=== PATIENT | male | born 1945 | race African-American/Black ===

== ENCOUNTER 2016-09-08 18:30 | Inpatient (IN) | payer MEDICARE ==
[~2016-09-08] VITALS: Ht 182.9 cm; Wt 74.8 kg
[~2016-09-08 18:30] MED LIST: ACETAMINOPHEN325 M1 ORAL; BACTRIM DS TAB1 EAC1 ORAL; BENADRYL25 MG ORAL; CIPROFLOXACIN500 M2 ORAL; FERROUS SULFAT325 M2 ORAL; LEVOFLOXACIN500 MG ORAL; MIRALAX17 G2 ORAL; MYLANTA II30 ML ORAL; NKM; NORCO 5-325 TA1 EACH ORAL; NORCO1 E1 ORAL; PERI-COLACE1 EA ORAL; PERMETHRIN60 GM TOPIC; PROTONIX40 MG ORAL; RESTORIL15 MG ORAL; SPIRONOLACTONE50 MG ORAL; TYLENOL650 MG/20. ORAL; ZOFRAN4 M3 ORAL
[2016-09-08 20:19] VITALS: BP 156/91
[2016-09-08] MEDS ORDERED: Miralax 17gm pkt ORAL PRN (21:30)
[2016-09-08] MEDS: Norco 7.5mg/325mg tab ORAL PRN (21:47)
[2016-09-08] MEDS: Heparin 5000 units/ml inj SUBQ SCH (21:53)
[2016-09-09 00:46] VITALS: BP 137/90
[2016-09-09 03:44] VITALS: BP 114/72
[2016-09-09] MEDS: Norco 7.5mg/325mg tab ORAL PRN ×3 (05:39→19:19)
[2016-09-09] MEDS: Heparin 5000 units/ml inj SUBQ SCH ×3 (05:40→21:50)
[2016-09-09 06:21] LABS: INR 1.1 (0.9-1.1); PROTHROMBIN TIME 11.5 SEC (9.30-11.50)
[2016-09-09 06:38] LABS: BASOPHILS % (AUTO) 1.5 % (0.0-2.0); EOSINOPHILS % (AUTO) 3.3 % (0.0-3.0); LYMPHOCYTES % (AUTO) 31.6 % (20.0-45.0); MEAN CORPUSCULAR HEMOGLOBIN 23.1 PG (27.0-31.0); MEAN CORPUSCULAR HGB CONC 30.8 G/DL (32.0-36.0); MEAN CORPUSCULAR VOLUME 75 FL (80-99); MEAN PLATELET VOLUME 7.9 FL (6.5-10.1); MONOCYTES % (AUTO) 12.9 % (1.0-10.0); NEUTROPHILS % (AUTO) 50.7 % (45.0-75.0); PLATELET COUNT 208 K/UL (150-450); RED BLOOD COUNT 3.96 M/UL (4.70-6.10); RED CELL DISTRIBUTION WIDTH 19.1 % (11.6-14.8)
[2016-09-09 06:58] LABS: ALANINE AMINOTRANSFERASE 19 U/L (3-41); ALBUMIN/GLOBULIN RATIO 0.6 (1.0-2.7); ANION GAP 15 (5-15); ASPARTATE AMINO TRANSFERASE 72 U/L (5-40); CALCIUM 8.9 mg/dL (8.6-10.2); CARBON DIOXIDE 22 mEQ/L (20-30); CHLORIDE 100 mEQ/L (98-107); CREATININE 1.2 mg/dL (0.7-1.2); GLOMERULAR FILTRATION RATE > 60 mL/min (>60); HEMOLYSIS 0; MAGNESIUM 1.5 mg/dL (1.7-2.5); PHOSPHORUS 3.4 mg/dL (2.5-4.8); POTASSIUM 4.3 mEQ/L (3.4-4.9); SODIUM 137 mEQ/L (135-145); TOTAL PROTEIN 8.2 g/dL (6.6-8.7)
[2016-09-09 08:28] VITALS: BP 123/76
--- NOTE | 2016-09-09 11:19 | Wound Care Consultation ---
Wound Assessment Wound Assessment #1: Wound Number: #1 Wound Present on Admission: Yes New Wound: No Status Change of Wound: No Wound Location Body Site Modif: mid Wound Location Body Site: abdomen Wound Type: other - non healing open wound. Aniket Test: Does not Aniket Wound Thickness: Full Thickness Wound Length: 7.0 Wound Width: 5.0 Wound Depth: 0.3 Percent of Wound [place]/Red: 100 Wound Drainage Amount: Moderate Wound Drainage Odor: None/Absent Tissue Surrounding Wound: Macerated Wound General Appearance: Reddened Wound Assessment #2: Wound Number: #2 Wound Present on Admission: Yes New Wound: No Status Change of Wound: No Wound Location Body Site Modif: right Wound Location Body Site: toe - 2nd Wound Type: scab Aniket Test: Does not Aniket Wound Thickness: Full Thickness Wound Length: 0.5 Wound Width: 0.5 Wound Depth: utd Wound Drainage Amount: None Wound Drainage Odor: None/Absent Tissue Surrounding Wound: intact dry scab Wound General Appearance: Open to air, Clean/Dry Wound Comment #1 Mid abdomen non-healing open wound. #2 Right 2nd toe scab. Recommendation -Local wound care as ordered. -Follow previous treatment order for Abdominal site. -Turn and reposition. -Keep clean and dry. -Optimize nutrition. -Heel protectors if needed. -Offload heels and feet. -Assess and notify MD if any changes of condition is noted. upon assessment noted patient is alert able to reposition self. per patient stated abdomen was a hernia, had surgery, and one day it opened and has had wound since. site noted 100% pink wound bed, no foul odor, moderate serosanguineous drainage to site, applied treatment as ordered, tolerated well , no c/o pain at time of treatment being provided. left patient safe lowest position call light kept within reach. ASAD LAI Sep 09, 2016 11:19
[2016-09-09 12:16] VITALS: BP 128/75
[2016-09-09 16:00] VITALS: BP 136/82
--- NOTE | 2016-09-09 18:39 | History & Physical ---
History and Physical History & Physicial Dictated for Int Med-Dr Leigh no. [id number]. STEPHENIE OLSEN Sep 09, 2016 18:39
[2016-09-09 20:00] VITALS: BP 111/65
[2016-09-09 20:40] LABS: PSA TOTAL 2.2 ng/mL (< 4.5)
[2016-09-09] MEDS: Mylanta II UD 30ml ORAL PRN (20:43)
--- NOTE | 2016-09-09 23:28 | History and Physical Report ---
DATE OF ADMISSION: 09/08/2016 CHIEF COMPLAINT: The patient is a 71-year-old male, who presents with chief complaint of abdominal pain. HISTORY OF PRESENT ILLNESS: The patient has a history of ventral hernia. The patient states that the hernia has been increasing in size. The patient complains of pain in the ventral hernia region. The patient states that the pain now radiates to his left side. The patient presented to [facility] emergency room. A CT scan of the abdomen revealed multiple liver masses. The patient was transferred to [facility] for insurance purposes. The patient is admitted for abdominal pain to rule out metastatic cancer. PAST MEDICAL HISTORY: The patient denies. PAST SURGICAL HISTORY: The patient denies. CURRENT MEDICATIONS: The patient denies. ALLERGIES: Penicillin. SOCIAL HISTORY: The patient is single and is retired. The patient admits to tobacco use one-half pack per day. The patient admits to alcohol use of 2 drinks daily. The patient denies drug abuse. REVIEW OF SYSTEMS: Constitutional: The patient denies weight loss or weight gain. The patient denies fevers or chills. HEENT: The patient denies ear or throat pain. The patient denies headache. Cardiovascular: The patient denies palpitations or chest pain. Chest: The patient denies wheeze or shortness of breath. Abdomen: The patient complains of abdominal pain as above. The patient denies nausea, vomiting, diarrhea, or constipation. Genitourinary: The patient denies dysuria or increased frequency of urination. Neuromuscular: The patient denies seizure or generalized weakness. PHYSICAL EXAMINATION: VITAL SIGNS: Temperature 97.4 degrees, respirations 20, pulse 76, and blood pressure 137/90. GENERAL: The patient is a thin-appearing, male, disheveled, in no apparent distress. HEENT: Eyes, pupils are equal and responsive to light and accommodation. Extraocular movements are intact. NECK: Supple without lymphadenopathy. CHEST: Lungs are clear to auscultation bilaterally without wheezes or rales. CARDIOVASCULAR: Regular rhythm and rate. S1 and S2 are normal without murmurs, rubs, or gallops. ABDOMEN: Soft and distended with presence of a very large ventral hernia. There is pain to palpation in all four quadrants. There is no rebound or guarding. EXTREMITIES: Negative for clubbing, cyanosis, or edema. RECTAL: Refused. GENITALIA: Refused. NEUROLOGIC: Cranial nerves II through XII were grossly intact without focal deficits. Motor strength is 5/5 bilaterally. Deep tendon reflexes are 2+ plantar. LABORATORY AND DIAGNOSTIC STUDIES: WBC 5.8, hemoglobin 9.9, hematocrit 31.6, and platelets 226,000. Sodium 136, potassium 4.8, chloride 106, CO2 22, BUN 23, creatinine 1.22, and glucose 84. Liver function tests were elevated with an AST of 96, ALT of 28, and alkaline phosphatase of 147. Direct bilirubin is 0.4. Lipase is elevated at 87. CT scan of the abdomen from [place] revealed multiple liver masses. ASSESSMENT: This is a 71-year-old male. 1. Abdominal pain. 2. Large ventral hernia. 3. Liver masses. TREATMENT: 1. Abdominal pain. This may be secondary to ventral hernia as above versus liver masses. A Gastroenterology consultation was obtained with Dr. Arie Morrell. An Oncology consultation was obtained with Dr. Kwon. 2. Ventral hernia. This may be secondary to liver masses as above. 3. Abdominal pain. This is secondary to liver masses. Anmol Colindres M.D. DR: IGOR JOB#: [id number] CC:
--- NOTE | 2016-09-10 03:58 | Consultation ---
DATE OF CONSULTATION: 09/09/2016 HEMATOLOGY/ONCOLOGY CONSULTATION CONSULTING PHYSICIAN: Miguel Kwon M.D. ATTENDING PHYSICIAN: Anmol Colindres M.D. ADMITTING PHYSICIAN: 1. Anmol Colindres M.D. 2. Lennox Leigh M.D. CHIEF COMPLAINT AND HISTORY OF PRESENT ILLNESS: Dear Dr. Colindres and Dr. Leigh, Today, I had an opportunity to see one of your patients, Mr. Leno Mcleod, as you are aware, 71-year-old delightful gentleman with past medical history of alcohol abuse, perforated gastric ulcer, hyponatremia, metabolic acidosis, history of peritonitis, perforated duodenal ulcer, history of hepatitis C, abdominal pain, and GI bleed. The patient was admitted to [facility]. During evaluation, it was found that the patient did have a lesion in the left lobe of the liver suspicious for malignant neoplasm. CT scan was compared with previous one from March 2016. Liver lesion showing incredible growth suspicious for malignant neoplasm. PAST MEDICAL HISTORY: 1. History of alcohol abuse. 2. History of perforated gastric ulcer. 3. History of peritonitis. 4. Anemia of chronic disease. 5. Hypocalcemia. 6. Hyponatremia. 7. History of gout. 8. History of ethanol abuse. 9. History of hepatitis C. MEDICATIONS: 1. Heparin subcutaneous. 2. Tylenol. 3. Zofran. 4. MiraLax. 5. Restoril. ALLERGIES: NKDA. FAMILY HISTORY: Noncontributory. SOCIAL HISTORY: History of smoking. History of alcohol abuse. REVIEW OF SYSTEMS: General: The patient is not in any significant distress, but was chronically ill. Respiratory: Mild shortness of breath. Cardiovascular: The patient denies any chest pain. Gastrointestinal: History of perforated ulcer. History of alcohol abuse. History of diverticulitis. History of ventral hernia. History of GI bleed. PHYSICAL EXAMINATION: VITAL SIGNS: T-max 97 degrees, respiratory rate 20, heart rate 80, and blood pressure 130/80. HEENT: Head, normocephalic and atraumatic. NECK: Supple. No thyroid enlargement noted. No lymphadenopathy. HEART: S1 and S2 regular. ABDOMEN: Soft and benign. No organomegaly present. Bowel sounds are present. EXTREMITIES: No cyanosis, clubbing, or edema. LABORATORY AND DIAGNOSTIC DATA: Hemoglobin 9.1, hematocrit 29.7, and platelet count 208,000. INR is 1.1. Chemistry, CEA is 5.7, CA 19-9 is 0.6, and creatinine is 1.2. CT scan of the abdomen shows mass in the liver. Abdominal ultrasound shows mass in the liver. IMPRESSION: 1. Liver mass, rule out primary liver malignancy as well as metastatic lesion. 2. Anemia of chronic disease. 3. Anemia of iron deficiency. 4. Decreased hemoglobin and hematocrit, rule out gastrointestinal bleed. 5. Increased CEA, rule out colon cancer. 6. History of alcohol abuse. 7. History of perforated peptic ulcer. 8. History of peritonitis. 9. Hiatal hernia. 10. Possible alcoholic liver cirrhosis. 11. Possible hepatic failure carcinoma. 12. Malnutrition. 13. Failure to thrive. RECOMMENDATIONS: 1. Watch count. 2. Watch coagulopathy. 3. Venous Doppler of bilateral lower extremities to rule out DVT. 4. GI evaluation. 5. Possible liver mass biopsy. 6. Recheck tumor markers including alpha-fetoprotein, PSA, and nutrition. 7. Close followup. 8. Iron IV. 9. PRBC transfusion on p.r.n. basis. Miguel Kwon MD DR: GALDINO JOB#: [id number] CC:
[2016-09-10 04:00] VITALS: BP 117/75
[2016-09-10] MEDS: Heparin 5000 units/ml inj SUBQ SCH ×3 (06:08→21:24)
[2016-09-10 06:31] LABS: BASOPHILS % (AUTO) 1.2 % (0.0-2.0); LYMPHOCYTES % (AUTO) 33.6 % (20.0-45.0); MEAN CORPUSCULAR HEMOGLOBIN 22.5 PG (27.0-31.0); MEAN CORPUSCULAR HGB CONC 29.9 G/DL (32.0-36.0); MEAN CORPUSCULAR VOLUME 75 FL (80-99); MEAN PLATELET VOLUME 7.6 FL (6.5-10.1); MONOCYTES % (AUTO) 11.6 % (1.0-10.0); NEUTROPHILS % (AUTO) 50.6 % (45.0-75.0); PLATELET COUNT 212 K/UL (150-450); RED BLOOD COUNT 4.16 M/UL (4.70-6.10); WHITE BLOOD COUNT 7.4 K/UL (4.8-10.8)
[2016-09-10 07:52] LABS: ALANINE AMINOTRANSFERASE 18 U/L (3-41); ALBUMIN/GLOBULIN RATIO 0.6 (1.0-2.7); ANION GAP 15 (5-15); ASPARTATE AMINO TRANSFERASE 74 U/L (5-40); CALCIUM 8.7 mg/dL (8.6-10.2); CARBON DIOXIDE 23 mEQ/L (20-30); CHLORIDE 98 mEQ/L (98-107); CREATININE 1.1 mg/dL (0.7-1.2); GLOMERULAR FILTRATION RATE > 60 mL/min (>60); HEMOLYSIS 1; POTASSIUM 4.4 mEQ/L (3.4-4.9); SODIUM 136 mEQ/L (135-145); TOTAL PROTEIN 7.6 g/dL (6.6-8.7)
[2016-09-10 08:15] VITALS: BP 110/65
[2016-09-10] MEDS: Rifaximin 550mg tab ORAL SCH ×2 (08:51→21:23)
[2016-09-10] MEDS ORDERED: NS 275ml ONE (09:39)
[2016-09-10] MEDS ORDERED: Tubing IV Secondary IV ONE (09:39)
[2016-09-10 12:15] VITALS: BP 121/75
[2016-09-10] MEDS: Mylanta II UD 30ml ORAL PRN ×2 (13:08→21:53)
[2016-09-10] MEDS: Norco 7.5mg/325mg tab ORAL PRN ×2 (13:08→19:07)
--- NOTE | 2016-09-10 13:56 | General Progress Note ---
Assessment/Plan Assessment/Plan IMPRESSION: 1. Liver mass, rule out primary liver malignancy as well as metastatic lesion. 2. Anemia of chronic disease. 3. Anemia of iron deficiency. 4. Decreased hemoglobin and hematocrit, rule out gastrointestinal bleed. 5. Increased CEA, rule out colon cancer. 6. History of alcohol abuse. 7. History of perforated peptic ulcer. 8. History of peritonitis. 9. Hiatal hernia. 10. Possible alcoholic liver cirrhosis. 11. Possible hepatic failure carcinoma. 12. Malnutrition. 13. Failure to thrive. RECOMMENDATIONS: 1. Watch count.PRBC transfusion on p.r.n. basis. 2. Watch coagulopathy. 3. Venous Doppler of bilateral lower extremities to rule out DVT. 4. GI evaluation. 5. Possible liver mass biopsy. 6. Tumor markers pending 7. Close followup. 8. Continue Iron IV. 9. Staff Thank you, Deepak Kwon MD Subjective Constitutional: Reports: no symptoms HEENT: Reports: no symptoms Cardiovascular: Reports: no symptoms Respiratory: Reports: no symptoms Gastrointestinal/Abdominal: Reports: poor appetite Genitourinary: Reports: no symptoms Neurologic/Psychiatric: Reports: no symptoms Endocrine: Reports: no symptoms Hematologic/Lymphatic: Reports: anemia Allergies: Coded Allergies: PENICILLINS (Unverified Allergy, Severe, Rash, 05/01/14) Subjective no complaints, is stable, started on iron Objective Last 24 Hour Vital Signs Date Time Temp Pulse Resp B/P Pulse Ox O2 Delivery O2 Flow Rate FiO2 09/10/16 12:15 97.7 79 21 121/75 97 Room Air 09/10/16 08:15 97.7 83 20 110/65 97 Room Air 09/10/16 04:00 98.1 68 20 117/75 92 Room Air 09/09/16 20:00 98.2 73 20 111/65 96 Room Air 09/09/16 16:00 97.3 73 18 136/82 96 Room Air 09/09/16 14:11 98.2 Intake and Output 09/09/16 09/10/16 19:00 07:00 Intake Total 460 ml 55 ml Output Total 600 ml Balance -140 ml 55 ml Intake Oral 460 ml IV Total 55 ml Output Urine Total 600 ml # Voids 5 # Bowel Movements 1 Laboratory Tests 09/09/16 20:15: Hemoglobin A [Pending], Hemoglobin A2 [Pending], Hemoglobin C [Pending], Hemoglobin F () [Pending], Hemoglobin S [Pending], Variant Hemoglobin [ Pending], Hemoglobin Electrophoresis Interp [Pending], Hemoglobin Interpretation [Pending], Hemoglobin Solubility [Pending], Ammonia 65H, Alpha Fetoprotein [Pending], Hepatitis A IgM Antibody [Pending], Hepatitis B Surface Antigen [Pending], Hepatitis B Core IgM Antibody [Pending], Hepatitis C Antibody [Pending] 09/10/16 05:00: White Blood Count 7.4, Red Blood Count 4.16L, Hemoglobin 9.3L, Hematocrit 31.3L , Mean Corpuscular Volume 75L, Mean Corpuscular Hemoglobin 22.5L, Mean Corpuscular Hemoglobin Concent 29.9L, Red Cell Distribution Width 20.0H, Platelet Count 212, Mean Platelet Volume 7.6, Neutrophils (%) (Auto) 50.6, Lymphocytes (%) (Auto) 33.6, Monocytes (%) (Auto) 11.6H, Eosinophils (%) (Auto) 3.0, Basophils (%) (Auto) 1.2, Sodium Level 136, Potassium Level 4.4, Chloride Level 98, Carbon Dioxide Level 23, Anion Gap 15, Blood Urea Nitrogen 21, Creatinine 1.1, Estimat Glomerular Filtration Rate > 60, Glucose Level 79, Calcium Level 8.7, Total Bilirubin 0.7, Aspartate Amino Transf (AST/SGOT) 74H, Alanine Aminotransferase (ALT/SGPT) 18, Alkaline Phosphatase 134H, Total Protein 7.6, Albumin 3.1L, Globulin 4.5, Albumin/Globulin Ratio 0.6L 09/10/16 09:00: Stool Occult Blood Negative Height (Feet): 6 Weight (Pounds): 165 General Appearance: WD/WN EENT: TMs normal Neck: supple Cardiovascular: regular rhythm Respiratory/Chest: lungs clear Abdomen: non tender Extremities: non-tender Edema: 1+ Leg (L), 1+ Leg (R) Edema: mild edema Neurologic: alert Skin: warm/dry Deepak Kwon Sep 10, 2016 13:56
[2016-09-10 16:04] VITALS: BP 122/60
--- NOTE | 2016-09-10 19:17 | Internal Med Progress Note ---
Subjective Date of Service: Sep 10, 2016 Physician Name Stephenie Olsen Attending Physician Lennox Leigh MD Current Medications Medications (Trade) Dose Ordered Sig/Gilles Route PRN Reason Start Time Stop Time Status Last Admin Dose Admin Acetaminophen (Tylenol) 650 mg Q4H PRN ORAL Mild Pain/Temp > 100.5 09/08/16 21:30 10/08/16 21:29 Acetaminophen/ Hydrocodone Bitart ([place] 7.5/325) 1 ea Q6H PRN ORAL Pain Scale (6-10) 09/08/16 21:30 09/15/16 21:29 09/10/16 19:07 Al Hydroxide/Mg Hydroxide ([place]yl[place] II) 30 ml Q6H PRN ORAL Indigestion 09/08/16 21:30 10/08/16 21:29 09/10/16 13:08 Dextrose (Dextrose 50%) STAT PRN IV Hypoglycemia 09/08/16 22:00 10/08/16 21:59 Diphenhydramine HCl (Benadryl) 25 mg Q6H PRN ORAL Itching 09/08/16 21:30 10/08/16 21:29 Heparin Sodium (Porcine) (Heparin 5000 units/ml) 5,000 units EVERY 8 HOURS SUBQ 09/08/16 22:00 10/08/16 21:59 09/10/16 13:12 Iron Sucrose/ Sodium Chloride (Venofer/Sodium Chloride) 55 ml @ 200 mls/hr BEDTIME IVPB 09/09/16 23:00 09/18/16 21:17 09/09/16 22:55 Ondansetron HCl (Zofran) 4 mg Q6H PRN ORAL Nausea & Vomiting 09/08/16 21:30 10/08/16 21:29 Polyethylene Glycol (Miralax) 17 gm HSPRN PRN ORAL Constipation 09/08/16 21:30 10/08/16 21:29 Rifaximin (Xifaxan) 550 mg EVERY 12 HOURS ORAL 09/10/16 09:00 09/17/16 08:59 09/10/16 08:51 Temazepam 15 mg 15 mg HSPRN PRN ORAL Insomnia 09/08/16 21:30 09/15/16 21:29 Allergies: Coded Allergies: PENICILLINS (Unverified Allergy, Severe, Rash, 05/01/14) ROS Limited/Unobtainable: No Constitutional: Reports: no symptoms HEENT: Reports: no symptoms Cardiovascular: Reports: no symptoms Respiratory: Reports: no symptoms Gastrointestinal/Abdominal: Reports: abdominal pain Genitourinary: Reports: no symptoms Neurologic/Psychiatric: Reports: no symptoms Subjective 71 YO M admitted for abdominal pain; now liver masses. Cover for Int Oliver-Dr Leigh. 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, no motor/sensory deficits Skin: normal pigmentation, warm/dry Laboratory Tests Test 09/09/16 20:15 09/10/16 05:00 09/10/16 09:00 Hemoglobin A Pending Hemoglobin A2 Pending Hemoglobin C Pending Hemoglobin F () Pending Hemoglobin S Pending Variant Hemoglobin Pending Hemoglobin Electrophoresis Interp Pending Hemoglobin Interpretation Pending Hemoglobin Solubility Pending Ammonia 65 umol/L (16-60) H Alpha Fetoprotein Pending Hepatitis A IgM Antibody Pending Hepatitis B Surface Antigen Pending Hepatitis B Core IgM Antibody Pending Hepatitis C Antibody Pending White Blood Count 7.4 K/UL (4.8-10.8) Red Blood Count 4.16 M/UL (4.70-6.10) L Hemoglobin 9.3 G/DL (14.2-18.0) L Hematocrit 31.3 % (42.0-52.0) L Mean Corpuscular Volume 75 FL (80-99) L Mean Corpuscular Hemoglobin 22.5 PG (27.0-31.0) L Mean Corpuscular Hemoglobin Concent 29.9 G/DL (32.0-36.0) L Red Cell Distribution Width 20.0 % (11.6-14.8) H Platelet Count 212 K/UL (150-450) Mean Platelet Volume 7.6 FL (6.5-10.1) Neutrophils (%) (Auto) 50.6 % (45.0-75.0) Lymphocytes (%) (Auto) 33.6 % (20.0-45.0) Monocytes (%) (Auto) 11.6 % (1.0-10.0) H Eosinophils (%) (Auto) 3.0 % (0.0-3.0) Basophils (%) (Auto) 1.2 % (0.0-2.0) Sodium Level 136 mEQ/L (135-145) Potassium Level 4.4 mEQ/L (3.4-4.9) Chloride Level 98 mEQ/L (98-107) Carbon Dioxide Level 23 mEQ/L (20-30) Anion Gap 15 (5-15) Blood Urea Nitrogen 21 mg/dL (7-23) Creatinine 1.1 mg/dL (0.7-1.2) Estimat Glomerular Filtration Rate > 60 mL/min (>60) Glucose Level 79 mg/dL (74-106) Calcium Level 8.7 mg/dL (8.6-10.2) Total Bilirubin 0.7 mg/dL (0.0-1.2) Aspartate Amino Transf (AST/SGOT) 74 U/L (5-40) H Alanine Aminotransferase (ALT/SGPT) 18 U/L (3-41) Alkaline Phosphatase 134 U/L (40-129) H Total Protein 7.6 g/dL (6.6-8.7) Albumin 3.1 g/dL (3.5-5.2) L Globulin 4.5 g/dL Albumin/Globulin Ratio 0.6 (1.0-2.7) L Stool Occult Blood Negative (NEGATIVE) Microbiology Date/Time Source Procedure Growth Status 09/09/16 02:45 Urine,Clean Catch Urine Culture - Preliminary Strep Species, Gamma-Hemolytic Resulted 09/08/16 22:45 Abdomen Gram Stain - Final Resulted 09/08/16 22:45 Wound Culture - Preliminary Staphylococcus Aureus Resulted Intake and Output 09/09/16 09/10/16 19:00 07:00 Intake Total 460 ml 55 ml Output Total 600 ml Balance -140 ml 55 ml Intake Oral 460 ml IV Total 55 ml Output Urine Total 600 ml # Voids 5 # Bowel Movements 1 Assessment/Plan Problem List: (1) Liver masses Assessment & Plan: Await MRI abdomen. See heme/onc note (2) Elevated liver enzymes Assessment & Plan: await GI consult. (3) Pancreatitis Assessment & Plan: Due to liver masses. Await GI consult. (4) Ventral hernia Status: not improved STEPHENIE OLSEN Sep 10, 2016 19:17
--- NOTE | 2016-09-10 19:48 | Consultation ---
DATE OF CONSULTATION: 09/10/2016 CHIEF COMPLAINT: Abdominal pain. HISTORY OF PRESENT ILLNESS: This is a 71-year-old male, who has history of large ventral hernia, which apparently was operated two years ago, still has open wound. He was here in April 2016, when he had an endoscopy by me. An endoscopy showed evidence of esophagitis and paraesophageal hernia. The patient also had prior history of gallstones, diverticulosis of colon, and came back again with abdominal pain. Of note in the last admission, there was a liver lesion which he was doing a workup on. Alpha-fetoprotein was 15. The patient never got follow up after discharge, which is April 2016. PAST MEDICAL HISTORY: 1. History of diverticulosis. 2. Esophagitis. 3. Hiatal hernia. 4. Liver lesions suspicious for malignancy. 5. A ventral hernia repair, which is still open. 6. History of duodenal ulcer requiring surgery. 7. Anemia. 8. History of alcohol abuse. PAST SURGICAL HISTORY: The patient had exploratory laparotomy in 2013 and also had a duodenal ulcer. MEDICATIONS: Please see medication reconciliation list. ALLERGIES: Penicillin. SOCIAL HISTORY: The patient is a both smoker and drinker before. No intravenous drug abuse. FAMILY HISTORY: Noncontributory. REVIEW OF SYSTEMS: A 10-point review of systems was performed and pertinent positives in history of present illness. PHYSICAL EXAMINATION: VITAL SIGNS: Temperature 98.1 degrees, pulse 60, respiratory rate 20, and blood pressure 116/74. HEENT: Normocephalic and atraumatic. Sclerae anicteric. NECK: Supple. No evidence of lymphadenopathy. CARDIOVASCULAR: Regular rate and rhythm. Plus S1 and S2. LUNGS: Decreased breath sounds bilaterally on supine exam. ABDOMEN: There is a large ventral hernia with the cover on the wound area. Bowel sounds are present. No rebound. No guarding. No peritoneal sign. EXTREMITIES: No cyanosis. No clubbing. No edema. LABORATORY DATA: White count , hemoglobin 9.3, hematocrit 31, and platelet count is 212,000. Chem-7 is grossly normal. Liver function tests, alkaline phosphatase 134, AST 74, and ALT of 18. Ammonia level was elevated at 65. ASSESSMENT AND PLAN: This is a [id number] with multiple medical problems including anemia, esophagitis, history of duodenal ulcerations, diverticulosis, questionable liver malignancy, and elevated ammonia level. PLAN: Start the patient on Xifaxan 550 b.i.d. for elevated ammonia level. The patient is going for MRI of abdomen, we will follow. The patient's hepatitis panel is pending. We are going to also order alpha-fetoprotein. The patient might need a biopsy of the liver lesion if there is not enough diagnosis. Arie Morrell M.D. DR: PEREZ JOB#: [id number] CC:
[2016-09-10 20:00] VITALS: BP 133/72
[2016-09-11] VITALS (7 sets, daily range): BP systolic 100–142; BP diastolic 67–86
[2016-09-11] MEDS: Heparin 5000 units/ml inj SUBQ SCH ×3 (06:00→21:14)
[2016-09-11 07:06] LABS: BASOPHILS % (AUTO) 1.5 % (0.0-2.0); EOSINOPHILS % (AUTO) 2.7 % (0.0-3.0); LYMPHOCYTES % (AUTO) 30.4 % (20.0-45.0); MEAN CORPUSCULAR HEMOGLOBIN 22.6 PG (27.0-31.0); MEAN CORPUSCULAR HGB CONC 30.3 G/DL (32.0-36.0); MEAN CORPUSCULAR VOLUME 75 FL (80-99); MEAN PLATELET VOLUME 8.1 FL (6.5-10.1); MONOCYTES % (AUTO) 16.7 % (1.0-10.0); NEUTROPHILS % (AUTO) 48.7 % (45.0-75.0); PLATELET COUNT 205 K/UL (150-450); RED BLOOD COUNT 4.17 M/UL (4.70-6.10); RED CELL DISTRIBUTION WIDTH 19.5 % (11.6-14.8); WHITE BLOOD COUNT 7.3 K/UL (4.8-10.8)
[2016-09-11 07:30] LABS: ANION GAP 16 (5-15); CALCIUM 8.6 mg/dL (8.6-10.2); CARBON DIOXIDE 22 mEQ/L (20-30); CHLORIDE 99 mEQ/L (98-107); CREATININE 1.1 mg/dL (0.7-1.2); GLOMERULAR FILTRATION RATE > 60 mL/min (>60); HEMOLYSIS 4; POTASSIUM 4.4 mEQ/L (3.4-4.9); SODIUM 137 mEQ/L (135-145)
[2016-09-11 07:31] LABS: BILIRUBIN,DIRECT 0.2 mg/dL (0.1-0.3); TOTAL PROTEIN 7.6 g/dL (6.6-8.7)
[2016-09-11] MEDS: Rifaximin 550mg tab ORAL SCH ×2 (08:28→21:07)
--- NOTE | 2016-09-11 12:40 | General Progress Note ---
Assessment/Plan Assessment/Plan IMPRESSION: 1. Liver mass, rule out primary liver malignancy as well as metastatic lesions with AFP, MRI and potential biopsy 2. Anemia of chronic disease. 3. Anemia of iron deficiency. 4. Decreased hemoglobin and hematocrit, rule out gastrointestinal bleed. 5. Increased CEA, rule out colon cancer. 6. History of alcohol abuse. 7. History of perforated peptic ulcer. 8. History of peritonitis. 9. Hiatal hernia. 10. Possible alcoholic liver cirrhosis. 11. Possible hepatic failure carcinoma. 12. Malnutrition. 13. Failure to thrive. RECOMMENDATIONS: 1. Monitor counts 2. Watch coagulopathy. 3. Hgb goal >7 4. GI evaluation. 5. Possible liver mass biopsy. 6. AFP is pending 7. Close followup. 8. Continue Iron IV. 9. Staff Thank you, Deepak Kwon MD Subjective Constitutional: Reports: no symptoms HEENT: Reports: mouth pain Cardiovascular: Reports: no symptoms Respiratory: Reports: no symptoms Gastrointestinal/Abdominal: Reports: poor appetite Genitourinary: Reports: no symptoms Neurologic/Psychiatric: Reports: no symptoms Endocrine: Reports: no symptoms Hematologic/Lymphatic: Reports: anemia Allergies: Coded Allergies: PENICILLINS (Unverified Allergy, Severe, Rash, 05/01/14) Subjective no complaints, is stable, no bleeding, no hematochezia Objective Last 24 Hour Vital Signs Date Time Temp Pulse Resp B/P Pulse Ox O2 Delivery O2 Flow Rate FiO2 09/11/16 11:51 97.9 62 18 113/67 97 Room Air 09/11/16 08:00 98.2 76 18 100/67 99 Room Air 09/11/16 04:00 97.8 72 20 118/71 98 Room Air 09/11/16 00:00 97.6 68 18 128/68 99 Room Air 09/10/16 20:00 98.1 56 18 133/72 98 Room Air 09/10/16 16:04 98.1 60 20 122/60 99 Room Air 09/10/16 14:03 97.7 Intake and Output 09/10/16 09/11/16 19:00 07:00 Intake Total 1440 ml 655 ml Output Total 300 ml 950 ml Balance 1140 ml -295 ml Intake Oral 1440 ml 600 ml IV Total 55 ml Output Urine Total 300 ml 950 ml # Voids 2 3 # Bowel Movements 3 Laboratory Tests 09/11/16 05:30: White Blood Count 7.3, Red Blood Count 4.17L, Hemoglobin 9.4L, Hematocrit 31.2L , Mean Corpuscular Volume 75L, Mean Corpuscular Hemoglobin 22.6L, Mean Corpuscular Hemoglobin Concent 30.3L, Red Cell Distribution Width 19.5H, Platelet Count 205, Mean Platelet Volume 8.1, Neutrophils (%) (Auto) 48.7, Lymphocytes (%) (Auto) 30.4, Monocytes (%) (Auto) 16.7H, Eosinophils (%) (Auto) 2.7, Basophils (%) (Auto) 1.5, Sodium Level 137, Potassium Level 4.4, Chloride Level 99, Carbon Dioxide Level 22, Anion Gap 16H, Blood Urea Nitrogen 22, Creatinine 1.1, Estimat Glomerular Filtration Rate > 60, Glucose Level 80, Calcium Level 8.6, Total Bilirubin 0.5, Direct Bilirubin 0.2, Aspartate Amino Transf (AST/SGOT) 75H, Alanine Aminotransferase (ALT/SGPT) 18, Alkaline Phosphatase 136H, Total Protein 7.6, Albumin 3.1L, Alpha Fetoprotein [Pending] Height (Feet): 6 Weight (Pounds): 165 General Appearance: alert EENT: TMs normal Neck: supple Cardiovascular: regular rhythm Respiratory/Chest: lungs clear Abdomen: soft Extremities: non-tender Edema: 1+ Leg (L), 1+ Leg (R) Neurologic: alert Skin: warm/dry Deepak Kwon Sep 11, 2016 12:40
--- NOTE | 2016-09-11 13:30 | Pre-Procedure Note/Attestation ---
Pre-Procedure Note/Attestation Complete Prior to Procedure Planned Procedure: not applicable Procedure Narrative: US guided liver biopsy Indications for Procedure Pre-Operative Diagnosis: liver mass Attestation I attest that I discussed the nature of the procedure; its benefits; risks and complications; and alternatives (and the risks and benefits of such alternatives ), prior to the procedure, with the patient (or the patient's legal business office representative). I attest that, if there was a reasonable possibility of needing a blood transfusion, the patient (or the patient's legal business office representative) was given the [facility] standardized written summary, pursuant to the Desmond Jonn Blood Safety Act ([place] Health and Safety Code # 1645, as amended). I attest that I re-evaluated the patient just prior to the surgery and that there has been no change in the patient's H&P, except as documented below: LEANNA ELKINS M.D. Sep 11, 2016 13:30
--- NOTE | 2016-09-11 13:35 | GI Progress Note ---
Assessment/Plan Problems: (1) Abdominal pain ICD Codes: R10.9 - Unspecified abdominal pain SNOMED: 11210118 (2) GI (gastrointestinal bleed) ICD Codes: K92.2 - GI (gastrointestinal bleed) SNOMED: 96214669 (3) ETOH abuse ICD Codes: F10.10 - ETOH abuse SNOMED: 49940431 (4) Hepatitis C ICD Codes: B19.20 - Unspecified viral hepatitis C without hepatic coma SNOMED: 02816526 (5) Hyponatremia ICD Codes: E87.1 - Hyponatremia SNOMED: 24076302 (6) Alcohol abuse ICD Codes: F10.10 - Alcohol abuse, uncomplicated SNOMED: 76033375 (7) Elevated liver enzymes ICD Codes: R74.8 - Abnormal levels of other serum enzymes SNOMED: 408352287, 975025990 Status: unchanged Status Narrative Discussed with Dr. Morrell. Assessment/Plan iron deficient >> venofer elevated ammonia >> xifaxan + lactulose hep panel pending fu abd MRI pt request surgical consult for his abdominal hernia US guided liver biopsy of liver mass fu AFP pain mgmt fu labs Subjective Subjective limited Objective Last 24 Hour Vital Signs Date Time Temp Pulse Resp B/P Pulse Ox O2 Delivery O2 Flow Rate FiO2 09/11/16 11:51 97.9 62 18 113/67 97 Room Air 09/11/16 08:00 98.2 76 18 100/67 99 Room Air 09/11/16 04:00 97.8 72 20 118/71 98 Room Air 09/11/16 00:00 97.6 68 18 128/68 99 Room Air 09/10/16 20:00 98.1 56 18 133/72 98 Room Air 09/10/16 16:04 98.1 60 20 122/60 99 Room Air 09/10/16 14:03 97.7 Intake and Output 09/10/16 09/11/16 19:00 07:00 Intake Total 1440 ml 655 ml Output Total 300 ml 950 ml Balance 1140 ml -295 ml Intake Oral 1440 ml 600 ml IV Total 55 ml Output Urine Total 300 ml 950 ml # Voids 2 3 # Bowel Movements 3 Laboratory Tests Test 09/11/16 05:30 White Blood Count 7.3 K/UL (4.8-10.8) Red Blood Count 4.17 M/UL (4.70-6.10) L Hemoglobin 9.4 G/DL (14.2-18.0) L Hematocrit 31.2 % (42.0-52.0) L Mean Corpuscular Volume 75 FL (80-99) L Mean Corpuscular Hemoglobin 22.6 PG (27.0-31.0) L Mean Corpuscular Hemoglobin Concent 30.3 G/DL (32.0-36.0) L Red Cell Distribution Width 19.5 % (11.6-14.8) H Platelet Count 205 K/UL (150-450) Mean Platelet Volume 8.1 FL (6.5-10.1) Neutrophils (%) (Auto) 48.7 % (45.0-75.0) Lymphocytes (%) (Auto) 30.4 % (20.0-45.0) Monocytes (%) (Auto) 16.7 % (1.0-10.0) H Eosinophils (%) (Auto) 2.7 % (0.0-3.0) Basophils (%) (Auto) 1.5 % (0.0-2.0) Sodium Level 137 mEQ/L (135-145) Potassium Level 4.4 mEQ/L (3.4-4.9) Chloride Level 99 mEQ/L (98-107) Carbon Dioxide Level 22 mEQ/L (20-30) Anion Gap 16 (5-15) H Blood Urea Nitrogen 22 mg/dL (7-23) Creatinine 1.1 mg/dL (0.7-1.2) Estimat Glomerular Filtration Rate > 60 mL/min (>60) Glucose Level 80 mg/dL (74-106) Calcium Level 8.6 mg/dL (8.6-10.2) Total Bilirubin 0.5 mg/dL (0.0-1.2) Direct Bilirubin 0.2 mg/dL (0.1-0.3) Aspartate Amino Transf (AST/SGOT) 75 U/L (5-40) H Alanine Aminotransferase (ALT/SGPT) 18 U/L (3-41) Alkaline Phosphatase 136 U/L (40-129) H Total Protein 7.6 g/dL (6.6-8.7) Albumin 3.1 g/dL (3.5-5.2) L Alpha Fetoprotein Pending Height (Feet): 6 Weight (Pounds): 165 General Appearance: no apparent distress Cardiovascular: normal rate Respiratory/Chest: no respiratory distress, other Abdominal Exam: soft, other - abdominal hernia with open wound Extremities: normal range of motion Objective Endoscopy Procedure Note Indication for Procedure: anemia Procedures Performed: EGD Operative Findings/Diagnosis: esophagitis CHARBEL MORRELL - Apr 27, 2016 12:20 Joi Granados N.P. Sep 11, 2016 13:35
[2016-09-11] MEDS: Norco 7.5mg/325mg tab ORAL PRN ×2 (15:35→21:38)
--- NOTE | 2016-09-11 17:02 | Consultation ---
History of Present Illness General Date patient seen: Sep 11, 2016 Chief Complaint: abdominal pain and difficulty breathing Referring physician: Dr. Colindres Reason for Consultation: Dyspnea Present Illness HPI 71 yo man with pmhx hepatitis C alcohol abuse liver cirrhosis anemia presents to [facility] with complaint of abdominal pain. The patient also reported difficulty with breathing to his hospitalist, I was asked to consult and evaluate the patients respiratory and other comorid conditions. CXR is clear of acute infiltrates and or effusion, CT scan of abdomen reveals a ventral hernia and liver masses. The patient is to be given oxygen and breathing treatments as needed for shortness of breah. Allergies: Coded Allergies: PENICILLINS (Unverified Allergy, Severe, Rash, 05/01/14) Medication History Scheduled Lactulose (Lactulose*), 30 ML ORAL TID No Known Medications* (NKM - No Known Medications*), 0 ., (Reported) Ranitidine Hcl* (Zantac*), 150 MG ORAL TWICE A DAY Thiamine Hcl* (Vitamin B-1*), 100 MG ORAL DAILY Patient History Healthcare decision maker Resuscitation status Advanced Directive on File Past Medical/Surgical History Past Medical/Surgical History: (1) Encounter for wound re-check (2) Hypovolemic shock (3) Nonhealing nonsurgical wound (4) Elevated CEA (5) Hepatitis C (6) ETOH abuse (7) Liver masses (8) Encephalopathy (9) Perforated gastric ulcer (10) Alcohol abuse (11) ATN (acute tubular necrosis) (12) Anemia (13) Perforated duodenal ulcer (14) Hyponatremia (15) UTI (lower urinary tract infection) Review of Systems Constitutional: Reports: chills, fever, malaise, weakness Respiratory: Reports: shortness of breath Gastrointestinal: Reports: abdominal pain, nausea Skin: Reports: change in color, dryness, lesions, rash Physical Exam General Appearance: lethargic, confused, moderate distress Lines, tubes and drains: peripheral HEENT: normocephalic, atraumatic, PERRL Neck: non-tender, normal alignment, supple Respiratory/Chest: chest wall non-tender, decreased breath sounds, accessory muscle use Breasts: no masses Cardiovascular/Chest: normal peripheral pulses, normal rate, regular rhythm, no JVD Abdomen: absent bowel sounds, distended, guarding, rebound, tender, hernia, mass, hepatomegaly Genitourinary/Rectal: normal genital exam, normal rectal exam Extremities: inflammation, slow capillary refill, moderate edema Skin Exam: palled, rash 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, responsive, disoriented Last 24 Hour Vital Signs Date Time Temp Pulse Resp B/P Pulse Ox O2 Delivery O2 Flow Rate FiO2 09/11/16 11:51 97.9 62 18 113/67 97 Room Air 09/11/16 08:00 98.2 76 18 100/67 99 Room Air 09/11/16 04:00 97.8 72 20 118/71 98 Room Air 09/11/16 00:00 97.6 68 18 128/68 99 Room Air 09/10/16 20:00 98.1 56 18 133/72 98 Room Air Intake and Output 09/10/16 09/11/16 19:00 07:00 Intake Total 1440 ml 655 ml Output Total 300 ml 950 ml Balance 1140 ml -295 ml Intake Oral 1440 ml 600 ml IV Total 55 ml Output Urine Total 300 ml 950 ml # Voids 2 3 # Bowel Movements 3 Laboratory Tests Test 09/11/16 05:30 White Blood Count 7.3 K/UL (4.8-10.8) Red Blood Count 4.17 M/UL (4.70-6.10) L Hemoglobin 9.4 G/DL (14.2-18.0) L Hematocrit 31.2 % (42.0-52.0) L Mean Corpuscular Volume 75 FL (80-99) L Mean Corpuscular Hemoglobin 22.6 PG (27.0-31.0) L Mean Corpuscular Hemoglobin Concent 30.3 G/DL (32.0-36.0) L Red Cell Distribution Width 19.5 % (11.6-14.8) H Platelet Count 205 K/UL (150-450) Mean Platelet Volume 8.1 FL (6.5-10.1) Neutrophils (%) (Auto) 48.7 % (45.0-75.0) Lymphocytes (%) (Auto) 30.4 % (20.0-45.0) Monocytes (%) (Auto) 16.7 % (1.0-10.0) H Eosinophils (%) (Auto) 2.7 % (0.0-3.0) Basophils (%) (Auto) 1.5 % (0.0-2.0) Sodium Level 137 mEQ/L (135-145) Potassium Level 4.4 mEQ/L (3.4-4.9) Chloride Level 99 mEQ/L (98-107) Carbon Dioxide Level 22 mEQ/L (20-30) Anion Gap 16 (5-15) H Blood Urea Nitrogen 22 mg/dL (7-23) Creatinine 1.1 mg/dL (0.7-1.2) Estimat Glomerular Filtration Rate > 60 mL/min (>60) Glucose Level 80 mg/dL (74-106) Calcium Level 8.6 mg/dL (8.6-10.2) Total Bilirubin 0.5 mg/dL (0.0-1.2) Direct Bilirubin 0.2 mg/dL (0.1-0.3) Aspartate Amino Transf (AST/SGOT) 75 U/L (5-40) H Alanine Aminotransferase (ALT/SGPT) 18 U/L (3-41) Alkaline Phosphatase 136 U/L (40-129) H Total Protein 7.6 g/dL (6.6-8.7) Albumin 3.1 g/dL (3.5-5.2) L Alpha Fetoprotein Pending Height (Feet): 6 Weight (Pounds): 165 Medications Current Medications Medications (Trade) Dose Ordered Sig/Gilles Route PRN Reason Start Time Stop Time Status Last Admin Dose Admin Acetaminophen (Tylenol) 650 mg Q4H PRN ORAL Mild Pain/Temp > 100.5 09/08/16 21:30 10/08/16 21:29 Acetaminophen/ Hydrocodone Bitart (Melissa 7.5/325) 1 ea Q6H PRN ORAL Pain Scale (6-10) 09/08/16 21:30 09/15/16 21:29 09/11/16 15:35 Al Hydroxide/Mg Hydroxide (Mylanta II) 30 ml Q6H PRN ORAL Indigestion 09/08/16 21:30 10/08/16 21:29 09/10/16 21:53 Dextrose (Dextrose 50%) STAT PRN IV Hypoglycemia 09/08/16 22:00 10/08/16 21:59 Diphenhydramine HCl (Benadryl) 25 mg Q6H PRN ORAL Itching 09/08/16 21:30 10/08/16 21:29 Heparin Sodium (Porcine) (Heparin 5000 units/ml) 5,000 units EVERY 8 HOURS SUBQ 09/08/16 22:00 10/08/16 21:59 09/10/16 21:24 Iron Sucrose/ Sodium Chloride (Venofer/Sodium Chloride) 55 ml @ 200 mls/hr BEDTIME IVPB 09/09/16 23:00 09/18/16 21:17 09/10/16 21:23 Ondansetron HCl (Zofran) 4 mg Q6H PRN ORAL Nausea & Vomiting 09/08/16 21:30 10/08/16 21:29 Polyethylene Glycol (Miralax) 17 gm HSPRN PRN ORAL Constipation 09/08/16 21:30 10/08/16 21:29 Rifaximin (Xifaxan) 550 mg EVERY 12 HOURS ORAL 09/10/16 09:00 09/17/16 08:59 09/11/16 08:28 Temazepam 15 mg 15 mg HSPRN PRN ORAL Insomnia 09/08/16 21:30 09/15/16 21:29 Assessment/Plan Status: stable, progressing Assessment/Plan Assessment/Plan Problems: Dyspnea secondary to abdominal pain Ventral hernia Liver masses ETOH abuse Hepatitis C Anemia Plan CXR examined negative for acute process O2 supplemental with titration up to maintain 02 saturation above 92% f/u liver biopsy results hepatitis serology pending symptomatic treatment f/u h/h inr jose carlosl TONIE BALDERAS Sep 11, 2016 17:02
--- NOTE | 2016-09-11 19:50 | Internal Med Progress Note ---
Subjective Date of Service: Sep 11, 2016 Physician Name Stephenie Olsen Attending Physician Lennox Leigh MD Current Medications Medications (Trade) Dose Ordered Sig/Gilles Route PRN Reason Start Time Stop Time Status Last Admin Dose Admin Acetaminophen (Tylenol) 650 mg Q4H PRN ORAL Mild Pain/Temp > 100.5 09/08/16 21:30 10/08/16 21:29 Acetaminophen/ Hydrocodone Bitart (Braxton 7.5/325) 1 ea Q6H PRN ORAL Pain Scale (6-10) 09/08/16 21:30 09/15/16 21:29 09/11/16 15:35 Al Hydroxide/Mg Hydroxide (Mylanta II) 30 ml Q6H PRN ORAL Indigestion 09/08/16 21:30 10/08/16 21:29 09/10/16 21:53 Dextrose (Dextrose 50%) STAT PRN IV Hypoglycemia 09/08/16 22:00 10/08/16 21:59 Diphenhydramine HCl (Benadryl) 25 mg Q6H PRN ORAL Itching 09/08/16 21:30 10/08/16 21:29 Heparin Sodium (Porcine) (Heparin 5000 units/ml) 5,000 units EVERY 8 HOURS SUBQ 09/08/16 22:00 10/08/16 21:59 09/10/16 21:24 Iron Sucrose/ Sodium Chloride (Venofer/Sodium Chloride) 55 ml @ 200 mls/hr BEDTIME IVPB 09/09/16 23:00 09/18/16 21:17 09/10/16 21:23 Ondansetron HCl (Zofran) 4 mg Q6H PRN ORAL Nausea & Vomiting 09/08/16 21:30 10/08/16 21:29 Polyethylene Glycol (Miralax) 17 gm HSPRN PRN ORAL Constipation 09/08/16 21:30 10/08/16 21:29 Rifaximin (Xifaxan) 550 mg EVERY 12 HOURS ORAL 09/10/16 09:00 09/17/16 08:59 09/11/16 08:28 Temazepam 15 mg 15 mg HSPRN PRN ORAL Insomnia 09/08/16 21:30 09/15/16 21:29 Allergies: Coded Allergies: PENICILLINS (Unverified Allergy, Severe, Rash, 05/01/14) ROS Limited/Unobtainable: No Constitutional: Reports: no symptoms HEENT: Reports: no symptoms Cardiovascular: Reports: no symptoms Respiratory: Reports: no symptoms Gastrointestinal/Abdominal: Reports: abdominal pain Genitourinary: Reports: no symptoms Neurologic/Psychiatric: Reports: no symptoms Subjective 71 YO M admitted for abdominal pain; now liver masses. Cover for Int Oliver-Dr Leigh. Await MRI abdomen Objective Last Vital Signs Date Time Temp Pulse Resp B/P Pulse Ox O2 Delivery O2 Flow Rate FiO2 09/11/16 16:30 74 122/70 09/11/16 16:00 97.7 17 97 Room Air Laboratory Tests Test 09/11/16 05:30 White Blood Count 7.3 K/UL (4.8-10.8) Red Blood Count 4.17 M/UL (4.70-6.10) L Hemoglobin 9.4 G/DL (14.2-18.0) L Hematocrit 31.2 % (42.0-52.0) L Mean Corpuscular Volume 75 FL (80-99) L Mean Corpuscular Hemoglobin 22.6 PG (27.0-31.0) L Mean Corpuscular Hemoglobin Concent 30.3 G/DL (32.0-36.0) L Red Cell Distribution Width 19.5 % (11.6-14.8) H Platelet Count 205 K/UL (150-450) Mean Platelet Volume 8.1 FL (6.5-10.1) Neutrophils (%) (Auto) 48.7 % (45.0-75.0) Lymphocytes (%) (Auto) 30.4 % (20.0-45.0) Monocytes (%) (Auto) 16.7 % (1.0-10.0) H Eosinophils (%) (Auto) 2.7 % (0.0-3.0) Basophils (%) (Auto) 1.5 % (0.0-2.0) Sodium Level 137 mEQ/L (135-145) Potassium Level 4.4 mEQ/L (3.4-4.9) Chloride Level 99 mEQ/L (98-107) Carbon Dioxide Level 22 mEQ/L (20-30) Anion Gap 16 (5-15) H Blood Urea Nitrogen 22 mg/dL (7-23) Creatinine 1.1 mg/dL (0.7-1.2) Estimat Glomerular Filtration Rate > 60 mL/min (>60) Glucose Level 80 mg/dL (74-106) Calcium Level 8.6 mg/dL (8.6-10.2) Total Bilirubin 0.5 mg/dL (0.0-1.2) Direct Bilirubin 0.2 mg/dL (0.1-0.3) Aspartate Amino Transf (AST/SGOT) 75 U/L (5-40) H Alanine Aminotransferase (ALT/SGPT) 18 U/L (3-41) Alkaline Phosphatase 136 U/L (40-129) H Total Protein 7.6 g/dL (6.6-8.7) Albumin 3.1 g/dL (3.5-5.2) L Alpha Fetoprotein Pending Microbiology Date/Time Source Procedure Growth Status 09/09/16 02:45 Urine,Clean Catch Urine Culture - Final Enterococcus Faecalis Resulted 09/08/16 22:45 Abdomen Gram Stain - Final Resulted 09/08/16 22:45 Wound Culture - Preliminary Staphylococcus Aureus - Mrsa Resulted Intake and Output 09/10/16 09/11/16 19:00 07:00 Intake Total 1440 ml 655 ml Output Total 300 ml 950 ml Balance 1140 ml -295 ml Intake Oral 1440 ml 600 ml IV Total 55 ml Output Urine Total 300 ml 950 ml # Voids 2 3 # Bowel Movements 3 Objective General Appearance: WD/WN, no apparent distress, alert EENT: PERRL/EOMI, normal ENT inspection, TMs normal Neck: non-tender, normal alignment, supple Cardiovascular: normal peripheral pulses, normal rate, regular rhythm, no gallop/murmur, no JVD Respiratory/Chest: chest wall non-tender, lungs clear, normal breath sounds, no respiratory distress, no accessory muscle use Abdomen: distended, guarding, tender, mass 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 S/P ultrasound guided biopsy today. See heme/onc note (2) Elevated liver enzymes Assessment & Plan: see GI consult. (3) Pancreatitis Assessment & Plan: Due to liver masses. See GI consult. (4) Ventral hernia (5) Iron deficiency anemia Assessment & Plan: See GI note. IV venofer. Status: not improved STEPHENIE OLSEN Sep 11, 2016 19:50
[2016-09-12] VITALS: BP 129/69
[2016-09-12 04:00] VITALS: BP 134/77
[2016-09-12] MEDS: Heparin 5000 units/ml inj SUBQ SCH ×3 (05:42→21:48)
[2016-09-12 07:15] LABS: AMMONIA 57 umol/L (16-60); EOSINOPHILS % (AUTO) 2.7 % (0.0-3.0); LYMPHOCYTES % (AUTO) 30.2 % (20.0-45.0); MEAN CORPUSCULAR HEMOGLOBIN 22.4 PG (27.0-31.0); MEAN CORPUSCULAR HGB CONC 29.7 G/DL (32.0-36.0); MEAN CORPUSCULAR VOLUME 75 FL (80-99); MEAN PLATELET VOLUME 8.1 FL (6.5-10.1); MONOCYTES % (AUTO) 11.2 % (1.0-10.0); NEUTROPHILS % (AUTO) 54.9 % (45.0-75.0); PLATELET COUNT 210 K/UL (150-450); RED BLOOD COUNT 4.29 M/UL (4.70-6.10); RED CELL DISTRIBUTION WIDTH 19.5 % (11.6-14.8); WHITE BLOOD COUNT 8.2 K/UL (4.8-10.8)
[2016-09-12 07:24] LABS: ANION GAP 13 (5-15); CARBON DIOXIDE 23 mEQ/L (20-30); CHLORIDE 97 mEQ/L (98-107); GLOMERULAR FILTRATION RATE > 60 mL/min (>60); HEMOLYSIS 2; MAGNESIUM 1.7 mg/dL (1.7-2.5); PHOSPHORUS 3.7 mg/dL (2.5-4.8); POTASSIUM 4.6 mEQ/L (3.4-4.9); SODIUM 133 mEQ/L (135-145)
[2016-09-12 08:30] VITALS: BP 117/64
[2016-09-12] MEDS: Rifaximin 550mg tab ORAL SCH ×2 (09:35→20:39)
--- NOTE | 2016-09-12 11:05 | GI Progress Note ---
Assessment/Plan Problems: (1) Abdominal pain ICD Codes: R10.9 - Unspecified abdominal pain SNOMED: 54738155 (2) GI (gastrointestinal bleed) ICD Codes: K92.2 - GI (gastrointestinal bleed) SNOMED: 31251648 (3) ETOH abuse ICD Codes: F10.10 - ETOH abuse SNOMED: 50564367 (4) Hepatitis C ICD Codes: B19.20 - Unspecified viral hepatitis C without hepatic coma SNOMED: 23197192 (5) Hyponatremia ICD Codes: E87.1 - Hyponatremia SNOMED: 53919530 (6) Alcohol abuse ICD Codes: F10.10 - Alcohol abuse, uncomplicated SNOMED: 35650373 (7) Elevated liver enzymes ICD Codes: R74.8 - Abnormal levels of other serum enzymes SNOMED: 725299961, 439839414 Status: stable, progressing Status Narrative Discussed with Dr. Morrell. Assessment/Plan iron deficient >> venofer elevated ammonia >> xifaxan + lactulose elevated CEA hep panel pending AFP pending fu abd MRI pt request surgical consult for his abdominal hernia fu US guided liver biopsy of liver mass ETOH cessation pain mgmt fu labs outpatient colonoscopy Subjective Gastrointestinal/Abdominal: Reports: abdominal pain - improved, other Subjective limited Objective Last 24 Hour Vital Signs Date Time Temp Pulse Resp B/P Pulse Ox O2 Delivery O2 Flow Rate FiO2 09/12/16 08:30 97.7 87 19 117/64 95 Room Air 09/12/16 04:00 97.7 70 18 134/77 95 Room Air 70 09/12/16 00:00 97.3 63 18 129/69 97 Room Air 09/11/16 20:00 97.0 86 16 138/72 100 Room Air 09/11/16 16:30 74 122/70 09/11/16 16:00 97.7 85 17 142/86 97 Room Air 09/11/16 11:51 97.9 62 18 113/67 97 Room Air Intake and Output 09/11/16 09/12/16 19:00 07:00 Intake Total 750 ml Output Total 800 ml Balance -50 ml Intake Oral 750 ml Output Urine Total 800 ml # Voids 2 2 Laboratory Tests Test 09/12/16 05:40 White Blood Count 8.2 K/UL (4.8-10.8) Red Blood Count 4.29 M/UL (4.70-6.10) L Hemoglobin 9.6 G/DL (14.2-18.0) L Hematocrit 32.3 % (42.0-52.0) L Mean Corpuscular Volume 75 FL (80-99) L Mean Corpuscular Hemoglobin 22.4 PG (27.0-31.0) L Mean Corpuscular Hemoglobin Concent 29.7 G/DL (32.0-36.0) L Red Cell Distribution Width 19.5 % (11.6-14.8) H Platelet Count 210 K/UL (150-450) Mean Platelet Volume 8.1 FL (6.5-10.1) Neutrophils (%) (Auto) 54.9 % (45.0-75.0) Lymphocytes (%) (Auto) 30.2 % (20.0-45.0) Monocytes (%) (Auto) 11.2 % (1.0-10.0) H Eosinophils (%) (Auto) 2.7 % (0.0-3.0) Basophils (%) (Auto) 1.0 % (0.0-2.0) Sodium Level 133 mEQ/L (135-145) L Potassium Level 4.6 mEQ/L (3.4-4.9) Chloride Level 97 mEQ/L (98-107) L Carbon Dioxide Level 23 mEQ/L (20-30) Anion Gap 13 (5-15) Blood Urea Nitrogen 21 mg/dL (7-23) Creatinine 1.0 mg/dL (0.7-1.2) Estimat Glomerular Filtration Rate > 60 mL/min (>60) Glucose Level 76 mg/dL (74-106) Calcium Level 9.0 mg/dL (8.6-10.2) Phosphorus Level 3.7 mg/dL (2.5-4.8) Magnesium Level 1.7 mg/dL (1.7-2.5) Ammonia 57 umol/L (16-60) Height (Feet): 6 Weight (Pounds): 165 General Appearance: no apparent distress, alert Cardiovascular: normal rate Respiratory/Chest: normal breath sounds, no respiratory distress Abdominal Exam: soft, other - ventral hernia Extremities: normal range of motion Objective Endoscopy Procedure Note Indication for Procedure: anemia Procedures Performed: EGD Operative Findings/Diagnosis: esophagitis CHARBEL MORRELL - Apr 27, 2016 12:20 Joi Granados N.P. Sep 12, 2016 11:05
[2016-09-12 12:00] VITALS: BP 115/75
--- NOTE | 2016-09-12 12:24 | Diagnostic Imaging Report ---
Indication: Abdominal distention, abdominal pain, liver mass, history of prior ventral hernia surgery Technique: Axial single shot fast spin echo breath hold, coronal single shot fast spin-echo breath hold, axial T2 FRFSE fat-saturated, 2-D thick slab MRCP, axial 2-D FIESTA fat-saturated, axial 3-D dual echo breath-hold, precontrast axial and postcontrast axial and coronal water weighted axial LAVA FLEX images of the abdomen Comparison: Outside CT scan from [facility] dated 09/08/2016 Findings: The liver is enlarged. It demonstrates diffuse mild signal heterogeneity. Within the left hepatic lobe, segment 2, there is a mass which measures approximately 3 cm in diameter. This demonstrates central high T2 signal. It demonstrates peripheral enhancement, but the central portion does not enhance, likely indicating necrosis. A subtle focus of high T2 signal is seen more laterally within segment 2, measures approximately 15 mm diameter, also demonstrates peripheral enhancement and central not enhancement. There is an immediately adjacent 5 mm focus of there enhancement which does not demonstrate any corresponding abnormality on other sequences. There are a few scattered high T2 signal foci which probably represent small cysts or bile hamartomas. Other lesions described on recent CT within segment 2 and segment 4a are not clearly evident on the current study. A 1.5 cm mass is seen in the left side of the L1 vertebral body. This is apparent as high signal on the T2 weighted images that is not visible on the fat-saturated images, therefore most likely a hemangioma. This also does not enhance. It is also visible on prior CT scans dating back to 06/25/14 Trace fluid is seen anterior to the liver. The gallbladder is distended. Gallstones described on the recent CT as well as ultrasound of 04/25/2016 are not clearly evident. Bile ducts are normal in caliber. Again demonstrated is a skin graft covering a previous ventral hernia. The right kidney is mildly atrophic. The left kidney demonstrates a subcentimeter cortical high T2 lesion, presumably a cyst. There is a hiatal hernia. The spleen, adrenals, pancreas are unremarkable, better appreciated on the recent CT. Impression: 3 cm mass in segment 2 of the liver. This demonstrates peripheral enhancement, central high T2 signal within non vascularity. Differential considerations include primary neoplasm, metastatic neoplasm, liver abscess. Other differential possibilities include meningioma, focal nodular hyperplasia, although imaging characteristics are not typical of either these entities. Please correlate with recent biopsy results Note that no complications related both to the recent biopsy are demonstrated 1.5 cm mass also in segment 2, with peripheral enhancement and central height T2 signal and central non-enhancement, also described on recent CT. This is evident very subtle on recent CT, not present on earlier exams. Suspect a similar process 2 larger lesion. Multiplicity is concerning for metastatic disease Note that other lesions described on recent CT are not clearly evident on MRI. Scattered high T2, low T1 signal foci probably represent small simple cysts or bile hamartomas Hepatomegaly Trace ascites L1 vertebral body lesion described on recent CT scan is probably a benign hemangioma Gallstones reported on prior studies are not clearly evident on this exam. May be too small to visualize. No evidence of dilated bile ducts. Evidence of prior ventral hernia repair and skin grafting progress hiatal hernia also previously reported Left renal cyst.
--- NOTE | 2016-09-12 12:39 | Diagnostic Imaging Report ---
Indication: Shortness of breath Technique: One view of the chest Comparison: 06/15/2014 Findings: Retrocardiac hiatal hernia again demonstrated. There is ration currently. Heart size is upper limits of normal. Lungs and pleural spaces are clear Impression: No acute process
--- NOTE | 2016-09-12 14:01 | General Progress Note ---
Assessment/Plan Assessment/Plan IMPRESSION: 1. Liver mass, rule out primary liver malignancy as well as metastatic lesions with AFP, MRI and potential biopsy 2. Anemia of chronic disease. 3. Anemia of iron deficiency. Is on IV IRon 4. Decreased hemoglobin and hematocrit, rule out gastrointestinal bleed. 5. Increased CEA, rule out colon cancer. 6. History of alcohol abuse. 7. History of perforated peptic ulcer. 8. History of peritonitis. 9. Hiatal hernia. 10. Possible alcoholic liver cirrhosis. 11. Possible hepatic failure carcinoma. 12. Malnutrition. 13. Failure to thrive. RECOMMENDATIONS: 1. Monitor counts 2. Watch coagulopathy. 3. Hgb goal >7 4. GI evaluation. 5. Possible liver mass biopsy. 6. AFP is pending 7. DVT ppx heparin sq 8. Continue Iron IV. 9. Staff Thank you, Deepak Kwon MD Subjective Constitutional: Reports: no symptoms HEENT: Reports: no symptoms Cardiovascular: Reports: no symptoms Respiratory: Reports: no symptoms Gastrointestinal/Abdominal: Reports: poor appetite Genitourinary: Reports: no symptoms Neurologic/Psychiatric: Reports: no symptoms Endocrine: Reports: no symptoms Hematologic/Lymphatic: Reports: anemia Allergies: Coded Allergies: PENICILLINS (Unverified Allergy, Severe, Rash, 05/01/14) Subjective no complaints, is stable, no bleeding, no hematochezia Objective Last 24 Hour Vital Signs Date Time Temp Pulse Resp B/P Pulse Ox O2 Delivery O2 Flow Rate FiO2 09/12/16 12:00 98.2 71 18 115/75 96 Room Air 09/12/16 08:30 97.7 87 19 117/64 95 Room Air 09/12/16 04:00 97.7 70 18 134/77 95 Room Air 70 09/12/16 00:00 97.3 63 18 129/69 97 Room Air 09/11/16 20:00 97.0 86 16 138/72 100 Room Air 09/11/16 16:30 74 122/70 09/11/16 16:00 97.7 85 17 142/86 97 Room Air Intake and Output 09/11/16 09/12/16 19:00 07:00 Intake Total 750 ml Output Total 800 ml Balance -50 ml Intake Oral 750 ml Output Urine Total 800 ml # Voids 2 2 Laboratory Tests 09/12/16 05:40: White Blood Count 8.2, Red Blood Count 4.29L, Hemoglobin 9.6L, Hematocrit 32.3L , Mean Corpuscular Volume 75L, Mean Corpuscular Hemoglobin 22.4L, Mean Corpuscular Hemoglobin Concent 29.7L, Red Cell Distribution Width 19.5H, Platelet Count 210, Mean Platelet Volume 8.1, Neutrophils (%) (Auto) 54.9, Lymphocytes (%) (Auto) 30.2, Monocytes (%) (Auto) 11.2H, Eosinophils (%) (Auto) 2.7, Basophils (%) (Auto) 1.0, Sodium Level 133L, Potassium Level 4.6, Chloride Level 97L, Carbon Dioxide Level 23, Anion Gap 13, Blood Urea Nitrogen 21, Creatinine 1.0, Estimat Glomerular Filtration Rate > 60, Glucose Level 76, Calcium Level 9.0, Phosphorus Level 3.7, Magnesium Level 1.7, Ammonia 57 Height (Feet): 6 Weight (Pounds): 165 General Appearance: alert EENT: TMs normal Neck: supple Cardiovascular: regular rhythm Respiratory/Chest: normal breath sounds Abdomen: non tender Extremities: non-tender Edema: 1+ Leg (L), 1+ Leg (R) Edema: mild edema Neurologic: alert Skin: warm/dry Deepak Kwon Sep 12, 2016 14:01
--- NOTE | 2016-09-12 15:37 | Pulmonology Progress Note ---
Assessment/Plan Problems: (1) Liver masses (2) ETOH abuse (3) Hepatitis C (4) Anemia Assessment/Plan f/u liver biopsy results hepatitis serology pending symptomatic treatment f/u h/h inr wnl Subjective ROS Limited/Unobtainable: No Interval Events: had US guided biopsy of liver Allergies: Coded Allergies: PENICILLINS (Unverified Allergy, Severe, Rash, 05/01/14) Objective Last 24 Hour Vital Signs Date Time Temp Pulse Resp B/P Pulse Ox O2 Delivery O2 Flow Rate FiO2 09/12/16 12:00 98.2 71 18 115/75 96 Room Air 09/12/16 08:30 97.7 87 19 117/64 95 Room Air 09/12/16 04:00 97.7 70 18 134/77 95 Room Air 70 09/12/16 00:00 97.3 63 18 129/69 97 Room Air 09/11/16 20:00 97.0 86 16 138/72 100 Room Air 09/11/16 16:30 74 122/70 09/11/16 16:00 97.7 85 17 142/86 97 Room Air Intake and Output 09/11/16 09/12/16 19:00 07:00 Intake Total 750 ml Output Total 800 ml Balance -50 ml Intake Oral 750 ml Output Urine Total 800 ml # Voids 2 2 General Appearance: cachetic HEENT: normocephalic, atraumatic Respiratory/Chest: chest wall non-tender, lungs clear Cardiovascular: normal peripheral pulses, normal rate Abdomen: normal bowel sounds, soft, non tender Extremities: no cyanosis Skin: no ulcers Neurologic/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 II-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 grossly normal Laboratory Tests 09/12/16 05:40: White Blood Count 8.2, Red Blood Count 4.29L, Hemoglobin 9.6L, Hematocrit 32.3L , Mean Corpuscular Volume 75L, Mean Corpuscular Hemoglobin 22.4L, Mean Corpuscular Hemoglobin Concent 29.7L, Red Cell Distribution Width 19.5H, Platelet Count 210, Mean Platelet Volume 8.1, Neutrophils (%) (Auto) 54.9, Lymphocytes (%) (Auto) 30.2, Monocytes (%) (Auto) 11.2H, Eosinophils (%) (Auto) 2.7, Basophils (%) (Auto) 1.0, Sodium Level 133L, Potassium Level 4.6, Chloride Level 97L, Carbon Dioxide Level 23, Anion Gap 13, Blood Urea Nitrogen 21, Creatinine 1.0, Estimat Glomerular Filtration Rate > 60, Glucose Level 76, Calcium Level 9.0, Phosphorus Level 3.7, Magnesium Level 1.7, Ammonia 57 Current Medications Medications (Trade) Dose Ordered Sig/Gilles Route PRN Reason Start Time Stop Time Status Last Admin Dose Admin Acetaminophen (Tylenol) 650 mg Q4H PRN ORAL Mild Pain/Temp > 100.5 09/08/16 21:30 10/08/16 21:29 Acetaminophen/ Hydrocodone Bitart ([place] 7.5/325) 1 ea Q6H PRN ORAL Pain Scale (6-10) 09/08/16 21:30 09/15/16 21:29 09/11/16 21:38 Al Hydroxide/Mg Hydroxide (Mylanta II) 30 ml Q6H PRN ORAL Indigestion 09/08/16 21:30 10/08/16 21:29 09/10/16 21:53 Dextrose (Dextrose 50%) STAT PRN IV Hypoglycemia 09/08/16 22:00 10/08/16 21:59 Diphenhydramine HCl (Benadryl) 25 mg Q6H PRN ORAL Itching 09/08/16 21:30 10/08/16 21:29 Heparin Sodium (Porcine) (Heparin 5000 units/ml) 5,000 units EVERY 8 HOURS SUBQ 09/08/16 22:00 10/08/16 21:59 09/12/16 14:27 Iron Sucrose/ Sodium Chloride (Venofer/Sodium Chloride) 55 ml @ 200 mls/hr BEDTIME IVPB 09/09/16 23:00 09/18/16 21:17 09/11/16 21:08 Ondansetron HCl (Zofran) 4 mg Q6H PRN ORAL Nausea & Vomiting 09/08/16 21:30 10/08/16 21:29 Polyethylene Glycol (Miralax) 17 gm HSPRN PRN ORAL Constipation 09/08/16 21:30 10/08/16 21:29 Rifaximin (Xifaxan) 550 mg EVERY 12 HOURS ORAL 09/10/16 09:00 09/17/16 08:59 09/12/16 09:35 Temazepam 15 mg 15 mg HSPRN PRN ORAL Insomnia 09/08/16 21:30 09/15/16 21:29 TONIE BALDERAS Sep 12, 2016 15:37
[2016-09-12 16:00] VITALS: BP 98/67
--- NOTE | 2016-09-12 18:19 | Internal Med Progress Note ---
Subjective Date of Service: Sep 12, 2016 Physician Name Stephenie Olsen Attending Physician Lennox Leigh MD Current Medications Medications (Trade) Dose Ordered Sig/Gilles Route PRN Reason Start Time Stop Time Status Last Admin Dose Admin Acetaminophen (Tylenol) 650 mg Q4H PRN ORAL Mild Pain/Temp > 100.5 09/08/16 21:30 10/08/16 21:29 Acetaminophen/ Hydrocodone Bitart ([place] 7.5/325) 1 ea Q6H PRN ORAL Pain Scale (6-10) 09/08/16 21:30 09/15/16 21:29 09/11/16 21:38 Al Hydroxide/Mg Hydroxide (Mylanta II) 30 ml Q6H PRN ORAL Indigestion 09/08/16 21:30 10/08/16 21:29 09/10/16 21:53 Dextrose (Dextrose 50%) STAT PRN IV Hypoglycemia 09/08/16 22:00 10/08/16 21:59 Diphenhydramine HCl (Benadryl) 25 mg Q6H PRN ORAL Itching 09/08/16 21:30 10/08/16 21:29 Heparin Sodium (Porcine) (Heparin 5000 units/ml) 5,000 units EVERY 8 HOURS SUBQ 09/08/16 22:00 10/08/16 21:59 09/12/16 14:27 Iron Sucrose/ Sodium Chloride (Venofer/Sodium Chloride) 55 ml @ 200 mls/hr BEDTIME IVPB 09/09/16 23:00 09/18/16 21:17 09/11/16 21:08 Ondansetron HCl (Zofran) 4 mg Q6H PRN ORAL Nausea & Vomiting 09/08/16 21:30 10/08/16 21:29 Polyethylene Glycol (Miralax) 17 gm HSPRN PRN ORAL Constipation 09/08/16 21:30 10/08/16 21:29 Rifaximin (Xifaxan) 550 mg EVERY 12 HOURS ORAL 09/10/16 09:00 09/17/16 08:59 09/12/16 09:35 Temazepam 15 mg 15 mg HSPRN PRN ORAL Insomnia 09/08/16 21:30 09/15/16 21:29 Allergies: Coded Allergies: PENICILLINS (Unverified Allergy, Severe, Rash, 05/01/14) ROS Limited/Unobtainable: No Constitutional: Reports: no symptoms HEENT: Reports: no symptoms Cardiovascular: Reports: no symptoms Respiratory: Reports: no symptoms Gastrointestinal/Abdominal: Reports: abdominal pain Genitourinary: Reports: no symptoms Neurologic/Psychiatric: Reports: no symptoms Subjective 71 YO M admitted for abdominal pain; now liver masses. Cover for Int [facility]-Dr Leigh. Await MRI abdomen Objective Last Vital Signs Date Time Temp Pulse Resp B/P Pulse Ox O2 Delivery O2 Flow Rate FiO2 09/12/16 16:00 98.1 76 20 98/67 97 Room Air Laboratory Tests Test 09/12/16 05:40 White Blood Count 8.2 K/UL (4.8-10.8) Red Blood Count 4.29 M/UL (4.70-6.10) L Hemoglobin 9.6 G/DL (14.2-18.0) L Hematocrit 32.3 % (42.0-52.0) L Mean Corpuscular Volume 75 FL (80-99) L Mean Corpuscular Hemoglobin 22.4 PG (27.0-31.0) L Mean Corpuscular Hemoglobin Concent 29.7 G/DL (32.0-36.0) L Red Cell Distribution Width 19.5 % (11.6-14.8) H Platelet Count 210 K/UL (150-450) Mean Platelet Volume 8.1 FL (6.5-10.1) Neutrophils (%) (Auto) 54.9 % (45.0-75.0) Lymphocytes (%) (Auto) 30.2 % (20.0-45.0) Monocytes (%) (Auto) 11.2 % (1.0-10.0) H Eosinophils (%) (Auto) 2.7 % (0.0-3.0) Basophils (%) (Auto) 1.0 % (0.0-2.0) Sodium Level 133 mEQ/L (135-145) L Potassium Level 4.6 mEQ/L (3.4-4.9) Chloride Level 97 mEQ/L (98-107) L Carbon Dioxide Level 23 mEQ/L (20-30) Anion Gap 13 (5-15) Blood Urea Nitrogen 21 mg/dL (7-23) Creatinine 1.0 mg/dL (0.7-1.2) Estimat Glomerular Filtration Rate > 60 mL/min (>60) Glucose Level 76 mg/dL (74-106) Calcium Level 9.0 mg/dL (8.6-10.2) Phosphorus Level 3.7 mg/dL (2.5-4.8) Magnesium Level 1.7 mg/dL (1.7-2.5) Ammonia 57 umol/L (16-60) Intake and Output 09/11/16 09/12/16 19:00 07:00 Intake Total 750 ml Output Total 800 ml Balance -50 ml Intake Oral 750 ml Output Urine Total 800 ml # Voids 2 2 Objective General Appearance: WD/WN, no apparent distress, alert EENT: PERRL/EOMI, normal ENT inspection, TMs normal Neck: non-tender, normal alignment, supple Cardiovascular: normal peripheral pulses, normal rate, regular rhythm, no gallop/murmur, no JVD Respiratory/Chest: chest wall non-tender, lungs clear, normal breath sounds, no respiratory distress, no accessory muscle use Abdomen: distended, guarding, tender, mass 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 See heme/onc note (2) Elevated liver enzymes Assessment & Plan: see GI consult. (3) Pancreatitis Assessment & Plan: Due to liver masses. See GI consult. (4) Ventral hernia (5) Iron deficiency anemia Assessment & Plan: See GI note. IV venofer. (6) Elevated CEA Assessment & Plan: See GI note. Await alpha fetoprotein. (7) Hepatitis C Status: not improved STEPHENIE OLSEN Sep 12, 2016 18:19
[2016-09-12 20:00] VITALS: BP 114/61
[2016-09-12] MEDS: Mylanta II UD 30ml ORAL PRN (21:47)
[2016-09-13] VITALS: BP 135/70
[2016-09-13 04:00] VITALS: BP 131/68
[2016-09-13] MEDS: Heparin 5000 units/ml inj SUBQ SCH ×3 (05:31→21:11)
[2016-09-13 07:30] LABS: BASOPHILS % (AUTO) 1.7 % (0.0-2.0); EOSINOPHILS % (AUTO) 2.6 % (0.0-3.0); LYMPHOCYTES % (AUTO) 35.7 % (20.0-45.0); MEAN CORPUSCULAR HEMOGLOBIN 23.9 PG (27.0-31.0); MEAN CORPUSCULAR HGB CONC 31.7 G/DL (32.0-36.0); MEAN CORPUSCULAR VOLUME 75 FL (80-99); MEAN PLATELET VOLUME 8.2 FL (6.5-10.1); MONOCYTES % (AUTO) 13.8 % (1.0-10.0); NEUTROPHILS % (AUTO) 46.1 % (45.0-75.0); PLATELET COUNT 199 K/UL (150-450); RED BLOOD COUNT 4.14 M/UL (4.70-6.10); RED CELL DISTRIBUTION WIDTH 20.2 % (11.6-14.8); WHITE BLOOD COUNT 7.6 K/UL (4.8-10.8)
[2016-09-13 07:43] LABS: ANION GAP 13 (5-15); CARBON DIOXIDE 24 mEQ/L (20-30); CHLORIDE 99 mEQ/L (98-107); GLOMERULAR FILTRATION RATE > 60 mL/min (>60); HEMOLYSIS 7; POTASSIUM 4.3 mEQ/L (3.4-4.9); SODIUM 136 mEQ/L (135-145)
[2016-09-13 08:36] VITALS: BP 113/70
--- NOTE | 2016-09-13 09:28 | General Progress Note ---
Assessment/Plan Assessment/Plan ASSESSMENT: 1. Liver carcinoma - have discussed with pathology service and tissue is malignant, however difficult as of yet to determine the primary. Does not have morphological appearance of colon cancer or from HCC, potentially is from cholangio, query final tumor markers as well as final tissue staining - which will take several days 2. Anemia of chronic disease. 3. Anemia of iron deficiency. Is on IV Iron 4. Decreased hemoglobin and hematocrit, rule out gastrointestinal bleed. 5. Increased CEA, rule out colon cancer. 6. History of alcohol abuse. 7. History of perforated peptic ulcer. 8. History of peritonitis. 9. Hiatal hernia. 10. Possible alcoholic liver cirrhosis. 11. Possible hepatic failure carcinoma. 12. Malnutrition. 13. Failure to thrive. RECOMMENDATIONS: 1. Await final pathology report 2. Watch coagulopathy. 3. Hgb goal >7 4. GI evaluation. 5. AFP is pending 6. DVT ppx heparin sq 7. Continue Iron IV. 8. Staff Thank you, Deepak Kwon MD Subjective Constitutional: Reports: no symptoms HEENT: Reports: no symptoms Cardiovascular: Reports: no symptoms Respiratory: Reports: no symptoms Gastrointestinal/Abdominal: Reports: no symptoms Genitourinary: Reports: no symptoms Neurologic/Psychiatric: Reports: no symptoms Endocrine: Reports: no symptoms Hematologic/Lymphatic: Reports: anemia Allergies: Coded Allergies: PENICILLINS (Unverified Allergy, Severe, Rash, 05/01/14) Subjective no complaints, no bleeding, no hematochezia Objective Last 24 Hour Vital Signs Date Time Temp Pulse Resp B/P Pulse Ox O2 Delivery O2 Flow Rate FiO2 09/13/16 08:36 98.2 85 20 113/70 95 Room Air 09/13/16 04:00 98.1 72 18 131/68 96 Room Air 09/13/16 00:00 98.2 73 18 135/70 96 Room Air 09/12/16 20:00 98.1 75 20 114/61 96 Room Air 09/12/16 16:00 98.1 76 20 98/67 97 Room Air 09/12/16 12:00 98.2 71 18 115/75 96 Room Air Intake and Output 09/12/16 09/13/16 19:00 07:00 Intake Total 360 ml 775 ml Output Total 1375 ml Balance 360 ml -600 ml Intake Oral 360 ml 720 ml IV Total 55 ml Output Urine Total 1375 ml # Voids 3 Laboratory Tests 09/13/16 06:05: White Blood Count 7.6, Red Blood Count 4.14L, Hemoglobin 9.9L, Hematocrit 31.2L , Mean Corpuscular Volume 75L, Mean Corpuscular Hemoglobin 23.9L, Mean Corpuscular Hemoglobin Concent 31.7L, Red Cell Distribution Width 20.2H, Platelet Count 199, Mean Platelet Volume 8.2, Neutrophils (%) (Auto) 46.1, Lymphocytes (%) (Auto) 35.7, Monocytes (%) (Auto) 13.8H, Eosinophils (%) (Auto) 2.6, Basophils (%) (Auto) 1.7, Sodium Level 136, Potassium Level 4.3, Chloride Level 99, Carbon Dioxide Level 24, Anion Gap 13, Blood Urea Nitrogen 21, Creatinine 1.0, Estimat Glomerular Filtration Rate > 60, Glucose Level 79, Calcium Level 9.0 Height (Feet): 6 Weight (Pounds): 165 General Appearance: no apparent distress EENT: normal ENT inspection Neck: non-tender Cardiovascular: normal rate Respiratory/Chest: normal breath sounds Abdomen: no organomegaly Extremities: non-tender Edema: 1+ Leg (L), 1+ Leg (R) Edema: mild edema Neurologic: alert Skin: warm/dry Deepak Kwon Sep 13, 2016 09:28
[2016-09-13 09:35] LABS: HEMOGLOBIN A 98.6 % (94.0-98.0); HEMOGLOBIN A2 1.4 % (0.7-3.1)
[2016-09-13] MEDS ORDERED: NS 275ml ONE (11:13)
[2016-09-13] MEDS ORDERED: Tubing IV Secondary IV ONE (11:13)
--- NOTE | 2016-09-13 11:55 | Internal Med Progress Note ---
Subjective Date of Service: Sep 13, 2016 Physician Name Stephenie Olsen Attending Physician Lennox Leigh MD Current Medications Medications (Trade) Dose Ordered Sig/Gilles Route PRN Reason Start Time Stop Time Status Last Admin Dose Admin Acetaminophen (Tylenol) 650 mg Q4H PRN ORAL Mild Pain/Temp > 100.5 09/08/16 21:30 10/08/16 21:29 Acetaminophen/ Hydrocodone Bitart ([place] 7.5/325) 1 ea Q6H PRN ORAL Pain Scale (6-10) 09/08/16 21:30 09/15/16 21:29 09/11/16 21:38 Al Hydroxide/Mg Hydroxide (Mylanta II) 30 ml Q6H PRN ORAL Indigestion 09/08/16 21:30 10/08/16 21:29 09/12/16 21:47 Dextrose (Dextrose 50%) STAT PRN IV Hypoglycemia 09/08/16 22:00 10/08/16 21:59 Diphenhydramine HCl (Benadryl) 25 mg Q6H PRN ORAL Itching 09/08/16 21:30 10/08/16 21:29 Heparin Sodium (Porcine) (Heparin 5000 units/ml) 5,000 units EVERY 8 HOURS SUBQ 09/08/16 22:00 10/08/16 21:59 09/13/16 05:31 Iron Sucrose/ Sodium Chloride (Venofer/Sodium Chloride) 55 ml @ 200 mls/hr BEDTIME IVPB 09/09/16 23:00 09/18/16 21:17 09/12/16 20:39 Ondansetron HCl (Zofran) 4 mg Q6H PRN ORAL Nausea & Vomiting 09/08/16 21:30 10/08/16 21:29 Polyethylene Glycol (Miralax) 17 gm HSPRN PRN ORAL Constipation 09/08/16 21:30 10/08/16 21:29 Rifaximin (Xifaxan) 550 mg EVERY 12 HOURS ORAL 09/10/16 09:00 09/17/16 08:59 09/12/16 20:39 Temazepam 15 mg 15 mg HSPRN PRN ORAL Insomnia 09/08/16 21:30 09/15/16 21:29 09/13/16 01:00 Allergies: Coded Allergies: PENICILLINS (Unverified Allergy, Severe, Rash, 05/01/14) ROS Limited/Unobtainable: No Constitutional: Reports: no symptoms HEENT: Reports: no symptoms Cardiovascular: Reports: no symptoms Respiratory: Reports: no symptoms Gastrointestinal/Abdominal: Reports: abdomen distended, abdominal pain Genitourinary: Reports: no symptoms Neurologic/Psychiatric: Reports: no symptoms Subjective 71 YO M admitted for abdominal pain; now liver masses. Cover for Int [facility]-Dr Leigh. Await MRI abdomen Objective Last Vital Signs Date Time Temp Pulse Resp B/P Pulse Ox O2 Delivery O2 Flow Rate FiO2 09/13/16 08:36 98.2 85 20 113/70 95 Room Air Laboratory Tests Test 09/13/16 06:05 White Blood Count 7.6 K/UL (4.8-10.8) Red Blood Count 4.14 M/UL (4.70-6.10) L Hemoglobin 9.9 G/DL (14.2-18.0) L Hematocrit 31.2 % (42.0-52.0) L Mean Corpuscular Volume 75 FL (80-99) L Mean Corpuscular Hemoglobin 23.9 PG (27.0-31.0) L Mean Corpuscular Hemoglobin Concent 31.7 G/DL (32.0-36.0) L Red Cell Distribution Width 20.2 % (11.6-14.8) H Platelet Count 199 K/UL (150-450) Mean Platelet Volume 8.2 FL (6.5-10.1) Neutrophils (%) (Auto) 46.1 % (45.0-75.0) Lymphocytes (%) (Auto) 35.7 % (20.0-45.0) Monocytes (%) (Auto) 13.8 % (1.0-10.0) H Eosinophils (%) (Auto) 2.6 % (0.0-3.0) Basophils (%) (Auto) 1.7 % (0.0-2.0) Sodium Level 136 mEQ/L (135-145) Potassium Level 4.3 mEQ/L (3.4-4.9) Chloride Level 99 mEQ/L (98-107) Carbon Dioxide Level 24 mEQ/L (20-30) Anion Gap 13 (5-15) Blood Urea Nitrogen 21 mg/dL (7-23) Creatinine 1.0 mg/dL (0.7-1.2) Estimat Glomerular Filtration Rate > 60 mL/min (>60) Glucose Level 79 mg/dL (74-106) Calcium Level 9.0 mg/dL (8.6-10.2) Intake and Output 09/12/16 09/13/16 19:00 07:00 Intake Total 360 ml 775 ml Output Total 1375 ml Balance 360 ml -600 ml Intake Oral 360 ml 720 ml IV Total 55 ml Output Urine Total 1375 ml # Voids 3 Objective General Appearance: WD/WN, no apparent distress, alert EENT: PERRL/EOMI, normal ENT inspection, TMs normal Neck: non-tender, normal alignment, supple Cardiovascular: normal peripheral pulses, normal rate, regular rhythm, no gallop/murmur, no JVD Respiratory/Chest: chest wall non-tender, lungs clear, normal breath sounds, no respiratory distress, no accessory muscle use Abdomen: distended, guarding, tender, mass Neurologic: 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 See heme/onc note (2) Elevated liver enzymes Assessment & Plan: see GI consult. (3) Pancreatitis Assessment & Plan: Due to liver masses. See GI consult. (4) Ventral hernia (5) Iron deficiency anemia Assessment & Plan: See GI note. IV venofer. (6) Elevated CEA Assessment & Plan: See GI note. Await alpha fetoprotein. (7) Hepatitis C Status: not improved STEPHENIE OLSEN Sep 13, 2016 11:54
[2016-09-13 12:15] VITALS: BP 114/75
--- NOTE | 2016-09-13 12:34 | GI Progress Note ---
Assessment/Plan Problems: (1) Abdominal pain ICD Codes: R10.9 - Unspecified abdominal pain SNOMED: 24273478 (2) GI (gastrointestinal bleed) ICD Codes: K92.2 - GI (gastrointestinal bleed) SNOMED: 78112469 (3) ETOH abuse ICD Codes: F10.10 - ETOH abuse SNOMED: 56398482 (4) Hepatitis C ICD Codes: B19.20 - Unspecified viral hepatitis C without hepatic coma SNOMED: 79258204 (5) Hyponatremia ICD Codes: E87.1 - Hyponatremia SNOMED: 48747825 (6) Alcohol abuse ICD Codes: F10.10 - Alcohol abuse, uncomplicated SNOMED: 22113340 (7) Elevated liver enzymes ICD Codes: R74.8 - Abnormal levels of other serum enzymes SNOMED: 414570227, 118285941 Status: stable Status Narrative Discussed with Dr. Morrell. Assessment/Plan ok for DC per GI standpoint iron deficient >> venofer elevated ammonia >> xifaxan + lactulose elevated CEA MRI reviewed hep panel >> Hep C positive, outpt tx AFP elevation >> 137.6H fu liver mass biopsy ETOH cessation pain mgmt fu labs outpatient colonoscopy pt request surgical consult for his abdominal hernia Subjective Gastrointestinal/Abdominal: Reports: abdominal pain - has improved, other - c/ o of abdominal hernia. Objective Last 24 Hour Vital Signs Date Time Temp Pulse Resp B/P Pulse Ox O2 Delivery O2 Flow Rate FiO2 09/13/16 12:15 98.4 82 20 114/75 95 Room Air 09/13/16 08:36 98.2 85 20 113/70 95 Room Air 09/13/16 04:00 98.1 72 18 131/68 96 Room Air 09/13/16 00:00 98.2 73 18 135/70 96 Room Air 09/12/16 20:00 98.1 75 20 114/61 96 Room Air 09/12/16 16:00 98.1 76 20 98/67 97 Room Air Intake and Output 09/12/16 09/13/16 19:00 07:00 Intake Total 360 ml 775 ml Output Total 1375 ml Balance 360 ml -600 ml Intake Oral 360 ml 720 ml IV Total 55 ml Output Urine Total 1375 ml # Voids 3 Laboratory Tests Test 09/13/16 06:05 White Blood Count 7.6 K/UL (4.8-10.8) Red Blood Count 4.14 M/UL (4.70-6.10) L Hemoglobin 9.9 G/DL (14.2-18.0) L Hematocrit 31.2 % (42.0-52.0) L Mean Corpuscular Volume 75 FL (80-99) L Mean Corpuscular Hemoglobin 23.9 PG (27.0-31.0) L Mean Corpuscular Hemoglobin Concent 31.7 G/DL (32.0-36.0) L Red Cell Distribution Width 20.2 % (11.6-14.8) H Platelet Count 199 K/UL (150-450) Mean Platelet Volume 8.2 FL (6.5-10.1) Neutrophils (%) (Auto) 46.1 % (45.0-75.0) Lymphocytes (%) (Auto) 35.7 % (20.0-45.0) Monocytes (%) (Auto) 13.8 % (1.0-10.0) H Eosinophils (%) (Auto) 2.6 % (0.0-3.0) Basophils (%) (Auto) 1.7 % (0.0-2.0) Sodium Level 136 mEQ/L (135-145) Potassium Level 4.3 mEQ/L (3.4-4.9) Chloride Level 99 mEQ/L (98-107) Carbon Dioxide Level 24 mEQ/L (20-30) Anion Gap 13 (5-15) Blood Urea Nitrogen 21 mg/dL (7-23) Creatinine 1.0 mg/dL (0.7-1.2) Estimat Glomerular Filtration Rate > 60 mL/min (>60) Glucose Level 79 mg/dL (74-106) Calcium Level 9.0 mg/dL (8.6-10.2) Height (Feet): 6 Weight (Pounds): 165 General Appearance: no apparent distress, alert, thin Cardiovascular: normal rate Respiratory/Chest: normal breath sounds, no respiratory distress Abdominal Exam: other - vental hernia / abdominal dressing Objective Endoscopy Procedure Note Indication for Procedure: anemia Procedures Performed: EGD Operative Findings/Diagnosis: esophagitis CHARBEL MORRELL - Apr 27, 2016 12:20 Procedure: MRI Abdomen w/wo Contrast Indication: Abdominal distention, abdominal pain, liver mass, history of prior ventral hernia surgery Impression: 3 cm mass in segment 2 of the liver. This demonstrates peripheral enhancement, central high T2 signal within non vascularity. Differential considerations include primary neoplasm, metastatic neoplasm, liver abscess. Other differential possibilities include meningioma, focal nodular hyperplasia, although imaging characteristics are not typical of either these entities. Please correlate with recent biopsy results Note that no complications related both to the recent biopsy are demonstrated 1.5 cm mass also in segment 2, with peripheral enhancement and central height T2 signal and central non-enhancement, also described on recent CT. This is evident very subtle on recent CT, not present on earlier exams. Suspect a similar process 2 larger lesion. Multiplicity is concerning for metastatic disease Note that other lesions described on recent CT are not clearly evident on MRI. Scattered high T2, low T1 signal foci probably represent small simple cysts or bile hamartomas Hepatomegaly Trace ascites L1 vertebral body lesion described on recent CT scan is probably a benign hemangioma Gallstones reported on prior studies are not clearly evident on this exam. May be too small to visualize. No evidence of dilated bile ducts. Evidence of prior ventral hernia repair and skin grafting progress hiatal hernia also previously reported Left renal cyst. Joi Granados N.P. Sep 13, 2016 12:34
[2016-09-13] MEDS: Rifaximin 550mg tab ORAL SCH ×2 (12:56→21:10)
[2016-09-13 16:00] VITALS: BP_SYST 149
--- NOTE | 2016-09-13 16:17 | Diagnostic Imaging Report ---
APPROVED REPORT CPT Code: 91222 Present Symptoms Lower Extremity Pain: Bilateral BILATERAL: Imaging reveals a patent deep venous system bilaterally. There is no evidence of thrombus within the femoral, popliteal or tibial segments. The greater saphenous veins are also within normal limits. Doppler indicates normal spontaneous flow within these segments.
--- NOTE | 2016-09-13 17:32 | Pulmonology Progress Note ---
Assessment/Plan Problems: (1) Liver masses (2) ETOH abuse (3) Hepatitis C (4) Anemia (5) Elevated CEA (6) Ventral hernia Assessment/Plan biopsy showing some kind of malignancy, hepatitis serology pending symptomatic treatment f/u h/h inr wnl pts wants to be seen by surgeon, last admission was seen by Dr. Bautista Subjective ROS Limited/Unobtainable: No Constitutional: Reports: no symptoms HEENT: Repors: no symptoms Respiratory: Reports: no symptoms Allergies: Coded Allergies: PENICILLINS (Unverified Allergy, Severe, Rash, 05/01/14) Objective Last 24 Hour Vital Signs Date Time Temp Pulse Resp B/P Pulse Ox O2 Delivery O2 Flow Rate FiO2 09/13/16 16:00 98.1 72 19 149/ 97 Room Air 09/13/16 12:15 98.4 82 20 114/75 95 Room Air 09/13/16 08:36 98.2 85 20 113/70 95 Room Air 09/13/16 04:00 98.1 72 18 131/68 96 Room Air 09/13/16 00:00 98.2 73 18 135/70 96 Room Air 09/12/16 20:00 98.1 75 20 114/61 96 Room Air Intake and Output 09/12/16 09/13/16 19:00 07:00 Intake Total 360 ml 775 ml Output Total 1375 ml Balance 360 ml -600 ml Intake Oral 360 ml 720 ml IV Total 55 ml Output Urine Total 1375 ml # Voids 3 General Appearance: WD/WN HEENT: normocephalic, atraumatic Respiratory/Chest: chest wall non-tender, lungs clear Cardiovascular: normal peripheral pulses, normal rate Abdomen: normal bowel sounds, soft, non tender Genitourinary: normal external genitalia Extremities: no clubbing Neurologic/Psychiatric: family centered specialist II-XII grossly normal Laboratory Tests 09/13/16 06:05: White Blood Count 7.6, Red Blood Count 4.14L, Hemoglobin 9.9L, Hematocrit 31.2L , Mean Corpuscular Volume 75L, Mean Corpuscular Hemoglobin 23.9L, Mean Corpuscular Hemoglobin Concent 31.7L, Red Cell Distribution Width 20.2H, Platelet Count 199, Mean Platelet Volume 8.2, Neutrophils (%) (Auto) 46.1, Lymphocytes (%) (Auto) 35.7, Monocytes (%) (Auto) 13.8H, Eosinophils (%) (Auto) 2.6, Basophils (%) (Auto) 1.7, Sodium Level 136, Potassium Level 4.3, Chloride Level 99, Carbon Dioxide Level 24, Anion Gap 13, Blood Urea Nitrogen 21, Creatinine 1.0, Estimat Glomerular Filtration Rate > 60, Glucose Level 79, Calcium Level 9.0 Current Medications Medications (Trade) Dose Ordered Sig/Gilles Route PRN Reason Start Time Stop Time Status Last Admin Dose Admin Acetaminophen (Tylenol) 650 mg Q4H PRN ORAL Mild Pain/Temp > 100.5 09/08/16 21:30 10/08/16 21:29 Acetaminophen/ Hydrocodone Bitart (Mccracken 7.5/325) 1 ea Q6H PRN ORAL Pain Scale (6-10) 09/08/16 21:30 09/15/16 21:29 09/11/16 21:38 Al Hydroxide/Mg Hydroxide (Mylanta II) 30 ml Q6H PRN ORAL Indigestion 09/08/16 21:30 10/08/16 21:29 09/12/16 21:47 Dextrose (Dextrose 50%) STAT PRN IV Hypoglycemia 09/08/16 22:00 10/08/16 21:59 Diphenhydramine HCl (Benadryl) 25 mg Q6H PRN ORAL Itching 09/08/16 21:30 10/08/16 21:29 Heparin Sodium (Porcine) (Heparin 5000 units/ml) 5,000 units EVERY 8 HOURS SUBQ 09/08/16 22:00 10/08/16 21:59 09/13/16 12:57 Iron Sucrose/ Sodium Chloride (Venofer/Sodium Chloride) 55 ml @ 200 mls/hr BEDTIME IVPB 09/09/16 23:00 09/18/16 21:17 09/12/16 20:39 Ondansetron HCl (Zofran) 4 mg Q6H PRN ORAL Nausea & Vomiting 09/08/16 21:30 10/08/16 21:29 Polyethylene Glycol (Miralax) 17 gm HSPRN PRN ORAL Constipation 09/08/16 21:30 10/08/16 21:29 Rifaximin (Xifaxan) 550 mg EVERY 12 HOURS ORAL 09/10/16 09:00 09/17/16 08:59 09/13/16 12:56 Temazepam 15 mg 15 mg HSPRN PRN ORAL Insomnia 09/08/16 21:30 09/15/16 21:29 09/13/16 01:00 TONIE BALDERAS Sep 13, 2016 17:32
[2016-09-13 20:00] VITALS: BP 124/78
[2016-09-13] MEDS: Norco 7.5mg/325mg tab ORAL PRN (21:10)
[2016-09-14 04:00] VITALS: BP 136/78
[2016-09-14] MEDS: Heparin 5000 units/ml inj SUBQ SCH ×2 (05:36→13:02)
[2016-09-14 07:15] LABS: ALANINE AMINOTRANSFERASE 22 U/L (3-41); ALBUMIN/GLOBULIN RATIO 0.5 (1.0-2.7); ANION GAP 14 (5-15); ASPARTATE AMINO TRANSFERASE 90 U/L (5-40); CALCIUM 8.9 mg/dL (8.6-10.2); CARBON DIOXIDE 23 mEQ/L (20-30); CHLORIDE 101 mEQ/L (98-107); CREATININE 1.2 mg/dL (0.7-1.2); GLOMERULAR FILTRATION RATE > 60 mL/min (>60); HEMOLYSIS 6; POTASSIUM 4.3 mEQ/L (3.4-4.9); SODIUM 138 mEQ/L (135-145); TOTAL PROTEIN 8.2 g/dL (6.6-8.7)
[2016-09-14 07:18] LABS: BASOPHILS % (AUTO) 1.5 % (0.0-2.0); EOSINOPHILS % (AUTO) 3.1 % (0.0-3.0); LYMPHOCYTES % (AUTO) 29.9 % (20.0-45.0); MEAN CORPUSCULAR HGB CONC 30.2 G/DL (32.0-36.0); MEAN CORPUSCULAR VOLUME 76 FL (80-99); MEAN PLATELET VOLUME 7.8 FL (6.5-10.1); MONOCYTES % (AUTO) 17.2 % (1.0-10.0); NEUTROPHILS % (AUTO) 48.3 % (45.0-75.0); PLATELET COUNT 181 K/UL (150-450); RED BLOOD COUNT 4.45 M/UL (4.70-6.10); RED CELL DISTRIBUTION WIDTH 20.7 % (11.6-14.8)
[2016-09-14 08:00] VITALS: BP 120/69
--- NOTE | 2016-09-14 11:01 | GI Progress Note ---
Assessment/Plan Problems: (1) Abdominal pain ICD Codes: R10.9 - Unspecified abdominal pain SNOMED: 17678313 (2) GI (gastrointestinal bleed) ICD Codes: K92.2 - GI (gastrointestinal bleed) SNOMED: 71956615 (3) ETOH abuse ICD Codes: F10.10 - ETOH abuse SNOMED: 51164427 (4) Hepatitis C ICD Codes: B19.20 - Unspecified viral hepatitis C without hepatic coma SNOMED: 19956108 (5) Hyponatremia ICD Codes: E87.1 - Hyponatremia SNOMED: 30767942 (6) Alcohol abuse ICD Codes: F10.10 - Alcohol abuse, uncomplicated SNOMED: 43033622 (7) Elevated liver enzymes ICD Codes: R74.8 - Abnormal levels of other serum enzymes SNOMED: 265178177, 767336455 Status: stable Status Narrative Discussed with Dr. Morrell. Assessment/Plan ok for DC per GI standpoint iron deficient >> venofer elevated ammonia >> xifaxan + lactulose elevated CEA MRI reviewed hep panel >> Hep C positive, outpt tx AFP elevation >> 137.6H fu liver mass biopsy ETOH cessation pain mgmt fu labs abdominal wound / daily dressing change outpatient colonoscopy pt request surgical consult for his abdominal hernia Subjective Gastrointestinal/Abdominal: Reports: abdominal pain - occasional pain Objective Last 24 Hour Vital Signs Date Time Temp Pulse Resp B/P Pulse Ox O2 Delivery O2 Flow Rate FiO2 09/14/16 08:00 97.9 83 19 120/69 97 Room Air 09/14/16 04:00 97.1 57 20 136/78 97 Room Air 09/13/16 20:00 98.1 82 18 124/78 98 Room Air 09/13/16 16:00 98.1 72 19 149/ 97 Room Air 09/13/16 12:15 98.4 82 20 114/75 95 Room Air Intake and Output 09/13/16 09/14/16 19:00 07:00 Intake Total 460 ml 240 ml Output Total 400 ml 450 ml Balance 60 ml -210 ml Intake Oral 460 ml 240 ml Output Urine Total 400 ml 450 ml # Voids 6 Laboratory Tests Test 09/14/16 06:00 White Blood Count 8.0 K/UL (4.8-10.8) Red Blood Count 4.45 M/UL (4.70-6.10) L Hemoglobin 10.2 G/DL (14.2-18.0) L Hematocrit 33.8 % (42.0-52.0) L Mean Corpuscular Volume 76 FL (80-99) L Mean Corpuscular Hemoglobin 23.0 PG (27.0-31.0) L Mean Corpuscular Hemoglobin Concent 30.2 G/DL (32.0-36.0) L Red Cell Distribution Width 20.7 % (11.6-14.8) H Platelet Count 181 K/UL (150-450) Mean Platelet Volume 7.8 FL (6.5-10.1) Neutrophils (%) (Auto) 48.3 % (45.0-75.0) Lymphocytes (%) (Auto) 29.9 % (20.0-45.0) Monocytes (%) (Auto) 17.2 % (1.0-10.0) H Eosinophils (%) (Auto) 3.1 % (0.0-3.0) H Basophils (%) (Auto) 1.5 % (0.0-2.0) Sodium Level 138 mEQ/L (135-145) Potassium Level 4.3 mEQ/L (3.4-4.9) Chloride Level 101 mEQ/L (98-107) Carbon Dioxide Level 23 mEQ/L (20-30) Anion Gap 14 (5-15) Blood Urea Nitrogen 21 mg/dL (7-23) Creatinine 1.2 mg/dL (0.7-1.2) Estimat Glomerular Filtration Rate > 60 mL/min (>60) Glucose Level 80 mg/dL (74-106) Calcium Level 8.9 mg/dL (8.6-10.2) Total Bilirubin 0.5 mg/dL (0.0-1.2) Aspartate Amino Transf (AST/SGOT) 90 U/L (5-40) H Alanine Aminotransferase (ALT/SGPT) 22 U/L (3-41) Alkaline Phosphatase 188 U/L (40-129) H Total Protein 8.2 g/dL (6.6-8.7) Albumin 3.0 g/dL (3.5-5.2) L Globulin 5.2 g/dL Albumin/Globulin Ratio 0.5 (1.0-2.7) L Height (Feet): 6 Weight (Pounds): 165 General Appearance: no apparent distress, alert Cardiovascular: normal rate Respiratory/Chest: normal breath sounds, no respiratory distress Abdominal Exam: normal bowel sounds, non tender, soft, other - mid abdominal wound, healed / ventral hernia Extremities: normal range of motion Objective Endoscopy Procedure Note Indication for Procedure: anemia Procedures Performed: EGD Operative Findings/Diagnosis: esophagitis CHARBEL MORRELL - Apr 27, 2016 12:20 Procedure: MRI Abdomen w/wo Contrast Indication: Abdominal distention, abdominal pain, liver mass, history of prior ventral hernia surgery Impression: 3 cm mass in segment 2 of the liver. This demonstrates peripheral enhancement, central high T2 signal within non vascularity. Differential considerations include primary neoplasm, metastatic neoplasm, liver abscess. Other differential possibilities include meningioma, focal nodular hyperplasia, although imaging characteristics are not typical of either these entities. Please correlate with recent biopsy results Note that no complications related both to the recent biopsy are demonstrated 1.5 cm mass also in segment 2, with peripheral enhancement and central height T2 signal and central non-enhancement, also described on recent CT. This is evident very subtle on recent CT, not present on earlier exams. Suspect a similar process 2 larger lesion. Multiplicity is concerning for metastatic disease Note that other lesions described on recent CT are not clearly evident on MRI. Scattered high T2, low T1 signal foci probably represent small simple cysts or bile hamartomas Hepatomegaly Trace ascites L1 vertebral body lesion described on recent CT scan is probably a benign hemangioma Gallstones reported on prior studies are not clearly evident on this exam. May be too small to visualize. No evidence of dilated bile ducts. Evidence of prior ventral hernia repair and skin grafting progress hiatal hernia also previously reported Left renal cyst. Joi Granados N.P. Sep 14, 2016 11:00
[2016-09-14 12:04] VITALS: BP 147/80
[2016-09-14] MEDS: Rifaximin 550mg tab ORAL SCH (12:58)
--- NOTE | 2016-09-14 15:30 | General Progress Note ---
Assessment/Plan Assessment/Plan ASSESSMENT: 1. Liver carcinoma - have discussed with pathology service and tissue is malignant, however difficult as of yet to determine the primary. Does not have morphological appearance of colon cancer or from HCC, potentially is from cholangio, AFP is 140, pending final tissue staining - which will take several days 2. Anemia of chronic disease. 3. Anemia of iron deficiency. Is on IV Iron 4. Decreased hemoglobin and hematocrit, rule out gastrointestinal bleed. 5. Increased CEA, rule out colon cancer. 6. History of alcohol abuse. 7. History of perforated peptic ulcer. 8. History of peritonitis. 9. Hiatal hernia. 10. Possible alcoholic liver cirrhosis. 11. Possible hepatic failure carcinoma. 12. Malnutrition. 13. Failure to thrive. RECOMMENDATIONS: 1. Await final pathology report 2. Watch coagulopathy. 3. Hgb goal >7 4. GI evaluation. 5. AFP is pending 6. DVT ppx heparin sq 7. Continue Iron IV. 8. Staff Thank you, Deepak Kwon MD Subjective Constitutional: Reports: no symptoms HEENT: Reports: no symptoms Cardiovascular: Reports: no symptoms Respiratory: Reports: no symptoms Gastrointestinal/Abdominal: Reports: poor appetite Genitourinary: Reports: no symptoms Neurologic/Psychiatric: Reports: no symptoms Endocrine: Reports: no symptoms Hematologic/Lymphatic: Reports: anemia Allergies: Coded Allergies: PENICILLINS (Unverified Allergy, Severe, Rash, 05/01/14) Subjective no complaints, no bleeding, no hematochezia, path final report still pending Objective Last 24 Hour Vital Signs Date Time Temp Pulse Resp B/P Pulse Ox O2 Delivery O2 Flow Rate FiO2 09/14/16 12:04 97.8 74 20 147/80 97 Room Air 09/14/16 08:00 97.9 83 19 120/69 97 Room Air 09/14/16 04:00 97.1 57 20 136/78 97 Room Air 09/13/16 20:00 98.1 82 18 124/78 98 Room Air 09/13/16 16:00 98.1 72 19 149/ 97 Room Air Intake and Output 09/13/16 09/14/16 19:00 07:00 Intake Total 460 ml 240 ml Output Total 400 ml 450 ml Balance 60 ml -210 ml Intake Oral 460 ml 240 ml Output Urine Total 400 ml 450 ml # Voids 6 Laboratory Tests 09/14/16 06:00: White Blood Count 8.0, Red Blood Count 4.45L, Hemoglobin 10.2L, Hematocrit 33.8L , Mean Corpuscular Volume 76L, Mean Corpuscular Hemoglobin 23.0L, Mean Corpuscular Hemoglobin Concent 30.2L, Red Cell Distribution Width 20.7H, Platelet Count 181, Mean Platelet Volume 7.8, Neutrophils (%) (Auto) 48.3, Lymphocytes (%) (Auto) 29.9, Monocytes (%) (Auto) 17.2H, Eosinophils (%) (Auto) 3.1H, Basophils (%) (Auto) 1.5, Sodium Level 138, Potassium Level 4.3, Chloride Level 101, Carbon Dioxide Level 23, Anion Gap 14, Blood Urea Nitrogen 21, Creatinine 1.2, Estimat Glomerular Filtration Rate > 60, Glucose Level 80, Calcium Level 8.9, Total Bilirubin 0.5, Aspartate Amino Transf (AST/SGOT) 90H, Alanine Aminotransferase (ALT/SGPT) 22, Alkaline Phosphatase 188H, Total Protein 8.2, Albumin 3.0L, Globulin 5.2, Albumin/Globulin Ratio 0.5L Height (Feet): 6 Weight (Pounds): 165 General Appearance: no apparent distress EENT: TMs normal Neck: normal inspection Cardiovascular: normal rate Respiratory/Chest: no respiratory distress Abdomen: no organomegaly Extremities: non-tender Edema: 1+ Leg (L), 1+ Leg (R) Edema: mild edema Neurologic: abnormal gait Skin: warm/dry Deepak Kwon Sep 14, 2016 15:30
[2016-09-14] MEDS ORDERED: XIFAXAN550 MG ORAL (15:37)
--- NOTE | 2016-09-14 15:41 | Discharge Summary ---
Discharge Summary Hospital Course Date of Admission Sep 08, 2016 at 20:40 Date of Discharge Admitting Diagnosis HPI Leno Mcleod is a 71 year old male who was admitted on Sep 08, 2016 at 20: 40 for Abdominal Pain, Metastatic Liver Disease Hospital Course The patient was seen and examined at bedside and all new and available data was reviewed in the patients chart. Last 24 Hour Vital Signs Date Time Temp Pulse Resp B/P Pulse Ox O2 Delivery O2 Flow Rate FiO2 09/14/16 12:04 97.8 74 20 147/80 97 Room Air 09/14/16 08:00 97.9 83 19 120/69 97 Room Air 09/14/16 04:00 97.1 57 20 136/78 97 Room Air 09/13/16 20:00 98.1 82 18 124/78 98 Room Air 09/13/16 16:00 98.1 72 19 149/ 97 Room Air Labs Test 09/12/16 05:40 09/13/16 06:05 09/14/16 06:00 White Blood Count 8.2 K/UL (4.8-10.8) 7.6 K/UL (4.8-10.8) 8.0 K/UL (4.8-10.8) Red Blood Count 4.29 M/UL (4.70-6.10) 4.14 M/UL (4.70-6.10) 4.45 M/UL (4.70-6.10) Hemoglobin 9.6 G/DL (14.2-18.0) 9.9 G/DL (14.2-18.0) 10.2 G/DL (14.2-18.0) Hematocrit 32.3 % (42.0-52.0) 31.2 % (42.0-52.0) 33.8 % (42.0-52.0) Mean Corpuscular Volume 75 FL (80-99) 75 FL (80-99) 76 FL (80-99) Mean Corpuscular Hemoglobin 22.4 PG (27.0-31.0) 23.9 PG (27.0-31.0) 23.0 PG (27.0-31.0) Mean Corpuscular Hemoglobin Concent 29.7 G/DL (32.0-36.0) 31.7 G/DL (32.0-36.0) 30.2 G/DL (32.0-36.0) Red Cell Distribution Width 19.5 % (11.6-14.8) 20.2 % (11.6-14.8) 20.7 % (11.6-14.8) Platelet Count 210 K/UL (150-450) 199 K/UL (150-450) 181 K/UL (150-450) Mean Platelet Volume 8.1 FL (6.5-10.1) 8.2 FL (6.5-10.1) 7.8 FL (6.5-10.1) Neutrophils (%) (Auto) 54.9 % (45.0-75.0) 46.1 % (45.0-75.0) 48.3 % (45.0-75.0) Lymphocytes (%) (Auto) 30.2 % (20.0-45.0) 35.7 % (20.0-45.0) 29.9 % (20.0-45.0) Monocytes (%) (Auto) 11.2 % (1.0-10.0) 13.8 % (1.0-10.0) 17.2 % (1.0-10.0) Eosinophils (%) (Auto) 2.7 % (0.0-3.0) 2.6 % (0.0-3.0) 3.1 % (0.0-3.0) Basophils (%) (Auto) 1.0 % (0.0-2.0) 1.7 % (0.0-2.0) 1.5 % (0.0-2.0) Sodium Level 133 mEQ/L (135-145) 136 mEQ/L (135-145) 138 mEQ/L (135-145) Potassium Level 4.6 mEQ/L (3.4-4.9) 4.3 mEQ/L (3.4-4.9) 4.3 mEQ/L (3.4-4.9) Chloride Level 97 mEQ/L (98-107) 99 mEQ/L (98-107) 101 mEQ/L (98-107) Carbon Dioxide Level 23 mEQ/L (20-30) 24 mEQ/L (20-30) 23 mEQ/L (20-30) Anion Gap 13 (5-15) 13 (5-15) 14 (5-15) Blood Urea Nitrogen 21 mg/dL (7-23) 21 mg/dL (7-23) 21 mg/dL (7-23) Creatinine 1.0 mg/dL (0.7-1.2) 1.0 mg/dL (0.7-1.2) 1.2 mg/dL (0.7-1.2) Estimat Glomerular Filtration Rate > 60 mL/min (>60) > 60 mL/min (>60) > 60 mL/min (>60) Glucose Level 76 mg/dL (74-106) 79 mg/dL (74-106) 80 mg/dL (74-106) Calcium Level 9.0 mg/dL (8.6-10.2) 9.0 mg/dL (8.6-10.2) 8.9 mg/dL (8.6-10.2) Phosphorus Level 3.7 mg/dL (2.5-4.8) Magnesium Level 1.7 mg/dL (1.7-2.5) Ammonia 57 umol/L (16-60) Total Bilirubin 0.5 mg/dL (0.0-1.2) Aspartate Amino Transf (AST/SGOT) 90 U/L (5-40) Alanine Aminotransferase (ALT/SGPT) 22 U/L (3-41) Alkaline Phosphatase 188 U/L (40-129) Total Protein 8.2 g/dL (6.6-8.7) Albumin 3.0 g/dL (3.5-5.2) Globulin 5.2 g/dL Albumin/Globulin Ratio 0.5 (1.0-2.7) GENERAL: The patient is a thin-appearing, male, disheveled, in no apparent distress. HEENT: Eyes, pupils are equal and responsive to light and accommodation. Extraocular movements are intact. NECK: Supple without lymphadenopathy. CHEST: Lungs are clear to auscultation bilaterally without wheezes or rales. CARDIOVASCULAR: Regular rhythm and rate. S1 and S2 are normal without murmurs. ABDOMEN: Soft and distended with presence of a very large ventral hernia. EXTREMITIES: Negative for clubbing, cyanosis, or edema. RECTAL: Refused. GENITALIA: Refused. NEUROLOGIC: Cranial nerves II through XII were grossly intact without focal deficits. Motor strength is 5/5 bilaterally. Plan: DC home today advise to F/U with my office in1 week Discuss with ,[employer], over the phone as well. (Patient was seen earlier today. Signature timestamp does not reflect patient encounter time) Lennox Leigh MD Discharge Discharge Disposition Patient was discharged to Discharge Diagnoses: Lennox Leigh MD Sep 14, 2016 15:41
[2016-09-14] MEDS ORDERED: Tubing IV Secondary IV ONE (17:59)
--- NOTE | 2016-09-14 23:32 | Pulmonology Progress Note ---
Assessment/Plan Problems: (1) Liver masses (2) ETOH abuse (3) Hepatitis C (4) Anemia (5) Elevated CEA (6) Ventral hernia Assessment/Plan biopsy showing some kind of malignancy, hepatitis serology pending symptomatic treatment f/u h/h inr wnl pts wants to be seen by surgeon, last admission was seen by Dr. Bautista Subjective ROS Limited/Unobtainable: No Constitutional: Reports: anorexia, fatigue Gastrointestinal/Abdominal: Reports: bloating, nausea, vomiting Neurologic: Reports: confusion, weakness Allergies: Coded Allergies: PENICILLINS (Unverified Allergy, Severe, Rash, 05/01/14) Objective Last 24 Hour Vital Signs Date Time Temp Pulse Resp B/P Pulse Ox O2 Delivery O2 Flow Rate FiO2 09/14/16 12:04 97.8 74 20 147/80 97 Room Air 09/14/16 08:00 97.9 83 19 120/69 97 Room Air 09/14/16 04:00 97.1 57 20 136/78 97 Room Air Intake and Output 09/13/16 09/14/16 19:00 07:00 Intake Total 460 ml 240 ml Output Total 400 ml 450 ml Balance 60 ml -210 ml Intake Oral 460 ml 240 ml Output Urine Total 400 ml 450 ml # Voids 6 General Appearance: no acute distress HEENT: normocephalic, PERRL Respiratory/Chest: chest wall non-tender, lungs clear, decreased breath sounds Cardiovascular: normal peripheral pulses, normal rate, regular rhythm Abdomen: hypoactive bowel sounds, distended, guarding, tender, rebound tenderness, mass, hepatomegaly Genitourinary: normal external genitalia Neurologic/Psychiatric: journal entry audit clerk II-XII grossly normal, no motor/sensory deficits Laboratory Tests 09/14/16 06:00: White Blood Count 8.0, Red Blood Count 4.45L, Hemoglobin 10.2L, Hematocrit 33.8L , Mean Corpuscular Volume 76L, Mean Corpuscular Hemoglobin 23.0L, Mean Corpuscular Hemoglobin Concent 30.2L, Red Cell Distribution Width 20.7H, Platelet Count 181, Mean Platelet Volume 7.8, Neutrophils (%) (Auto) 48.3, Lymphocytes (%) (Auto) 29.9, Monocytes (%) (Auto) 17.2H, Eosinophils (%) (Auto) 3.1H, Basophils (%) (Auto) 1.5, Sodium Level 138, Potassium Level 4.3, Chloride Level 101, Carbon Dioxide Level 23, Anion Gap 14, Blood Urea Nitrogen 21, Creatinine 1.2, Estimat Glomerular Filtration Rate > 60, Glucose Level 80, Calcium Level 8.9, Total Bilirubin 0.5, Aspartate Amino Transf (AST/SGOT) 90H, Alanine Aminotransferase (ALT/SGPT) 22, Alkaline Phosphatase 188H, Total Protein 8.2, Albumin 3.0L, Globulin 5.2, Albumin/Globulin Ratio 0.5L TONIE BALDERAS Sep 14, 2016 23:32
--- NOTE | 2016-09-15 23:49 | Discharge Summary 2 SIG ---
DATE OF ADMISSION: 09/08/2016 DATE OF DISCHARGE: 09/14/2016 Addendum FINAL DIAGNOSES: 1. Liver carcinoma, unknown primary. 2. Status post ultrasound guided liver biopsy. 3. Elevated liver transaminases. 4. Pancreatitis due to liver mass. 5. Ventral hernia. 6. Iron deficiency anemia. 7. Hepatitis C. 8. Anemia of chronic disease. 9. ETOH abuse. 10. Elevated CEA, possible colon CA. Lennox Leigh M.D. I have been assigned to dictate discharge summary on this account and I was not involved in the patient's management. Catherine Griggs N.P. DR: BRIGID JOB#: [id number] CC: LINDSAY
--- NOTE | 2016-09-21 10:45 | Diagnostic Imaging Report ---
Indication: Liver mass demonstrated on multiple prior cross-sectional imaging studies Technique: Prior images reviewed. Informed consent obtained prior to commencement of the procedure. Intended puncture site was determined with ultrasound. Intended puncture site sterilely prepped and draped, local anesthesia with 1% lidocaine, both deep and superficial. Under real-time ultrasound guidance, a 17-gauge guide needle was used to access the periphery of the target lesion in segment 2. Total of 3 18-gauge core specimens obtained using automated biopsy gun. A touch prep and frozen section were done by pathology, indicating adequate cellularity of the specimen. The patient tolerated the procedure well, without immediate complication. Comparison: Reference made to recent outside CT scan (not available on PACS currently), 04/25/2016 CT and ultrasound of the abdomen Findings: Intraprocedural imaging documents sampling of the target lesion Impression: Apparently successful biopsy of left lobe liver mass, as described Pathology report is available, describes poorly differentiated adenocarcinoma, likely metastatic. This is concordant with the imaging findings
[2016-09-26] MEDS ORDERED: ZANTAC150 MG ORAL (10:45)
[2016-09-26] MEDS ORDERED: LACTULOSE20 GM/301 ORAL (10:45)
[2016-09-26] MEDS ORDERED: VITAMIN B-1100 MG ORAL (10:45)
== END 2016-09-14 18:00 | disposition home or self-care (01) | DRG 435 ==
LOC: 4W 20:40
PROC: 0FB03ZX Excision of Liver, Percutaneous Approach, Diagnostic (ICD-10-PCS; principal; 2016-09-08)
DX: C22.8 Malignant neoplasm of liver, primary, unspecified as to type (principal); K85.90 Acute pancreatitis without necrosis or infection, unspecified; E46 Unspecified protein-calorie malnutrition; K70.30 Alcoholic cirrhosis of liver without ascites; B19.9 Unspecified viral hepatitis without hepatic coma; D50.9 Iron deficiency anemia, unspecified; C18.9 Malignant neoplasm of colon, unspecified; R62.7 Adult failure to thrive; K43.9 Ventral hernia without obstruction or gangrene; D63.8 Anemia in other chronic diseases classified elsewhere; B19.20 Unspecified viral hepatitis C without hepatic coma; F10.10 Alcohol abuse, uncomplicated; R97.0 Elevated carcinoembryonic antigen [CEA]; Z87.891 Personal history of nicotine dependence; K44.9 Diaphragmatic hernia without obstruction or gangrene; K57.90 Diverticulosis of intestine, part unspecified, without perforation or abscess without bleeding; Z88.0 Allergy status to penicillin
CPT/HCPCS: 36415; 71010; 74183; 76942; 80048; 80053; 80076; 82105; 82140; 82270; 82378; 82607; 82728; 83020; 83540; 83550; 83615; 83735; 84100; 84153; 85025; 85610; 85730; 86301; 86703; 86705; 86709; 86803; 87070; 87086; 87181; 87205; 87340; 93970

== ENCOUNTER 2016-09-20 19:33 | Inpatient (IN) | payer MEDICARE ==
[~2016-09-20] VITALS: Ht 180.3 cm; Wt 73.0 kg
[~2016-09-20 19:33] MED LIST changes: +XIFAXAN550 MG ORAL
[2016-09-20] MEDS ORDERED: Pantoprazole Inj IV ONE (20:00)
[2016-09-20 20:29] VITALS: BP 138/79
[2016-09-20 20:39] LABS: APPEARANCE,URINE CLOUDY; KETONES,URINE NEGATIVE (NEGATIVE); LEUKOCYTE ESTERASE ,URINE 3+ (NEGATIVE); NITRITE,URINE NEGATIVE (NEGATIVE); PH,URINE 6 (4.5-8.0); PROTEIN,URINE 2+ (NEGATIVE); UROBILINOGEN,URINE 4 MG/DL (0.0-1.0)
[2016-09-20 20:43] LABS: BASOPHILS % (AUTO) 1.3 % (0.0-2.0); EOSINOPHILS % (AUTO) 1.7 % (0.0-3.0); LYMPHOCYTES % (AUTO) 30.5 % (20.0-45.0); MEAN CORPUSCULAR HEMOGLOBIN 24.9 PG (27.0-31.0); MEAN CORPUSCULAR HGB CONC 30.4 G/DL (32.0-36.0); MEAN CORPUSCULAR VOLUME 82 FL (80-99); MEAN PLATELET VOLUME 8.8 FL (6.5-10.1); MONOCYTES % (AUTO) 10.5 % (1.0-10.0); NEUTROPHILS % (AUTO) 55.9 % (45.0-75.0); PLATELET COUNT 214 K/UL (150-450); RED BLOOD COUNT 3.65 M/UL (4.70-6.10)
[2016-09-20 20:45] LABS: BACTERIA,URINE FEW /HPF; WBC,URINE TNTC /HPF (0 - 0)
[2016-09-20 20:47] LABS: INR 1.1 (0.9-1.1); PROTHROMBIN TIME 11.4 SEC (9.30-11.50)
[2016-09-20 20:49] LABS: AMMONIA 65 umol/L (16-60)
[2016-09-20 20:50] LABS: ALANINE AMINOTRANSFERASE 20 U/L (3-41); ALBUMIN/GLOBULIN RATIO 0.6 (1.0-2.7); ANION GAP 19 (5-15); ASPARTATE AMINO TRANSFERASE 77 U/L (5-40); CALCIUM 8.5 mg/dL (8.6-10.2); CARBON DIOXIDE 19 mEQ/L (20-30); CHLORIDE 98 mEQ/L (98-107); CREATININE 1.3 mg/dL (0.7-1.2); GLOMERULAR FILTRATION RATE > 60 mL/min (>60); HEMOLYSIS 17; LIPASE 104 U/L (< 60); POTASSIUM 4.5 mEQ/L (3.4-4.9); SODIUM 136 mEQ/L (135-145); TOTAL PROTEIN 7.6 g/dL (6.6-8.7); TROPONIN I < 0.30 ng/mL (<=0.30)
[2016-09-20 22:04] VITALS: BP 129/64
[2016-09-20] MEDS ORDERED: NKM (22:31)
[2016-09-20] MEDS ORDERED: Mylanta II UD 30ml ORAL PRN (23:15)
[2016-09-20] MEDS ORDERED: Nitroglycerin Subl 0.4mg tab (Bottle Of 25) SL PRN (23:15)
[2016-09-20] MEDS ORDERED: Morphine Sulfate 2mg/ml Inj IVP PRN (23:15)
[2016-09-20] MEDS ORDERED: Ketorolac 30mg Inj IV PRN (23:15)
[2016-09-20] MEDS ORDERED: Miralax 17gm pkt ORAL PRN (23:15)
--- NOTE | 2016-09-20 23:35 | Emergency Room Report ---
History of Present Illness General Chief Complaint: Vomiting Source: Patient, EMS Present Illness HPI Patient is a 71-year-old male who presented after increased hematemesis. Patient stated that he had prior history of ulcer disease. Patient had recently been treated in the hospital. Patient stated that he had been drinking alcohol earlier in the day. Patient began having some dark hematemesis. Patient stated that he had a chronic abdominal pain and had previous abdominal surgeries. Allergies: Coded Allergies: PENICILLINS (Unverified Allergy, Severe, Rash, 05/01/14) Patient History Past Medical History: see triage record Reviewed Nursing Documentation: PMH: Agreed, PSxH: Agreed Nursing Documentation-PMH Hx Cardiac Problems: No Hx Hypertension: No Hx Cancer: Yes - UNknown Hx Gastrointestinal Problems: Yes - abdominal hernia Hx Neurological Problems: No Review of Systems All Other Systems: negative except mentioned in HPI Physical Exam Vital Signs Date Time Temp Pulse Resp B/P Pulse Ox O2 Delivery O2 Flow Rate FiO2 09/20/16 19:40 98.4 93 16 125/79 100 Room Air Sp02 EP Interpretation: reviewed, normal General Appearance: normal inspection, well appearing, no apparent distress, alert, GCS 15 Head: atraumatic ENT: normal ENT inspection, hearing grossly normal, normal voice Neck: normal inspection, full range of motion, supple, no bony tend Respiratory: normal inspection, lungs clear, normal breath sounds, no respiratory distress, no retraction, no wheezing Cardiovascular #1: regular rate, rhythm, no edema Gastrointestinal: normal bowel sounds, non tender, soft, no guarding, no hernia , other - postsurgical changes to abdomen Genitourinary: no CVA tenderness Musculoskeletal: normal inspection, back normal, normal range of motion Neurologic: normal inspection, alert, responsive, speech normal Psychiatric: normal inspection, judgement/insight normal, mood/affect normal Skin: normal inspection, normal color, no rash Medical Decision Making Diagnostic Impression: Primary Impression: upper GI bleed Additional Impressions: Alcohol abuse Pancreatitis UTI (lower urinary tract infection) ER Course Patient presented for abdominal pain. Differential diagnoses included ischemic bowel, appendicitis, perforated viscus, abdominal aortic aneurysm, inferior myocardial infarction, viral gastroenteritis Because of complexity of patient's case laboratory testing and imaging studies were ordered.Patient was given IV antibiotics for urinary tract infection. The patient was noted to have some coffee-ground emesis. The patient was given IV protonics. Patient started on IV fluids. Dr. Leigh was contacted for inpatient management due to to a recent hematemesis. Laboratory Tests Test 09/20/16 20:10 White Blood Count 8.0 K/UL (4.8-10.8) Red Blood Count 3.65 M/UL (4.70-6.10) L Hemoglobin 9.1 G/DL (14.2-18.0) L Hematocrit 29.9 % (42.0-52.0) L Mean Corpuscular Volume 82 FL (80-99) Mean Corpuscular Hemoglobin 24.9 PG (27.0-31.0) L Mean Corpuscular Hemoglobin Concent 30.4 G/DL (32.0-36.0) L Red Cell Distribution Width 24.0 % (11.6-14.8) H Platelet Count 214 K/UL (150-450) Mean Platelet Volume 8.8 FL (6.5-10.1) Neutrophils (%) (Auto) 55.9 % (45.0-75.0) Lymphocytes (%) (Auto) 30.5 % (20.0-45.0) Monocytes (%) (Auto) 10.5 % (1.0-10.0) H Eosinophils (%) (Auto) 1.7 % (0.0-3.0) Basophils (%) (Auto) 1.3 % (0.0-2.0) Prothrombin Time 11.4 SEC (9.30-11.50) Prothrombin Time INR 1.1 (0.9-1.1) PTT 29 SEC (23-33) Urine Color Yellow Urine Appearance Cloudy Urine pH 6 (4.5-8.0) Urine Specific [place] 1.015 (1.005-1.035) Urine Protein 2+ (NEGATIVE) H Urine Glucose (UA) Negative (NEGATIVE) Urine Ketones Negative (NEGATIVE) Urine Occult Blood 3+ (NEGATIVE) H Urine Nitrite Negative (NEGATIVE) Urine Bilirubin Negative (NEGATIVE) Urine Urobilinogen 4 MG/DL (0.0-1.0) H Urine Leukocyte Esterase 3+ (NEGATIVE) H Urine RBC 2-4 /HPF (0 - 0) H Urine WBC Tntc /HPF (0 - 0) H Urine Squamous Epithelial Cells None /LPF (NONE/OCC) Urine Bacteria Few /HPF (NONE) Sodium Level 136 mEQ/L (135-145) Potassium Level 4.5 mEQ/L (3.4-4.9) Chloride Level 98 mEQ/L (98-107) Carbon Dioxide Level 19 mEQ/L (20-30) L Anion Gap 19 (5-15) H Blood Urea Nitrogen 36 mg/dL (7-23) H Creatinine 1.3 mg/dL (0.7-1.2) H Estimate Glomerular Filtration Rate > 60 mL/min (>60) Glucose Level 87 mg/dL (74-106) Calcium Level 8.5 mg/dL (8.6-10.2) L Total Bilirubin 0.5 mg/dL (0.0-1.2) Aspartate Amino Transferase (AST) 77 U/L (5-40) H Alanine Aminotransferase (ALT) 20 U/L (3-41) Alkaline Phosphatase 133 U/L (40-129) H Ammonia 65 umol/L (16-60) H Troponin I < 0.30 ng/mL (<=0.30) Total Protein 7.6 g/dL (6.6-8.7) Albumin 3.0 g/dL (3.5-5.2) L Globulin 4.6 g/dL Albumin/Globulin Ratio 0.6 (1.0-2.7) L Lipase 104 U/L (< 60) H EKG Diagnostic Results Rate: normal Rhythm: NSR ST Segments: no acute changes Rhythm Strip Diag. Results EP Interpretation: yes Rhythm: NSR, no PVC's, no ectopy Last Vital Signs Date Time Temp Pulse Resp B/P Pulse Ox O2 Delivery O2 Flow Rate FiO2 09/20/16 23:22 75 16 138/81 99 Room Air 09/20/16 22:04 98.5 Status: unchanged Disposition: ADMITTED INPATIENT Condition: Serious Referrals: Lennox Leigh MD (PCP) Zhao Leslie Sep 20, 2016 23:34
[2016-09-21] VITALS: BP 145/73
[2016-09-21] MEDS: D5 1/2NS 1,000 ML IV SCH ×3 (01:45→20:25)
[2016-09-21 04:00] VITALS: BP 146/88
[2016-09-21 04:31] LABS: BASOPHILS % (AUTO) 1.7 % (0.0-2.0); EOSINOPHILS % (AUTO) 2.3 % (0.0-3.0); LYMPHOCYTES % (AUTO) 34.3 % (20.0-45.0); MEAN CORPUSCULAR HEMOGLOBIN 25.4 PG (27.0-31.0); MEAN CORPUSCULAR HGB CONC 31.3 G/DL (32.0-36.0); MEAN CORPUSCULAR VOLUME 81 FL (80-99); MEAN PLATELET VOLUME 8.1 FL (6.5-10.1); MONOCYTES % (AUTO) 8.4 % (1.0-10.0); NEUTROPHILS % (AUTO) 53.3 % (45.0-75.0); PLATELET COUNT 178 K/UL (150-450); RED CELL DISTRIBUTION WIDTH 23.8 % (11.6-14.8); WHITE BLOOD COUNT 7.8 K/UL (4.8-10.8)
[2016-09-21 04:40] LABS: INR 1.2 (0.9-1.1); PROTHROMBIN TIME 12.2 SEC (9.30-11.50)
[2016-09-21 05:14] LABS: ALANINE AMINOTRANSFERASE 18 U/L (3-41); ALBUMIN/GLOBULIN RATIO 0.5 (1.0-2.7); AMYLASE 124 U/L (10-110); ANION GAP 13 (5-15); ASPARTATE AMINO TRANSFERASE 72 U/L (5-40); CALCIUM 8.3 mg/dL (8.6-10.2); CARBON DIOXIDE 19 mEQ/L (20-30); CHLORIDE 106 mEQ/L (98-107); GLOMERULAR FILTRATION RATE > 60 mL/min (>60); HEMOLYSIS 0; LIPASE 57 U/L (< 60); POTASSIUM 4.9 mEQ/L (3.4-4.9); SODIUM 138 mEQ/L (135-145); TOTAL PROTEIN 6.8 g/dL (6.6-8.7)
[2016-09-21 08:00] VITALS: BP 105/60
[2016-09-21] MEDS: Pantoprazole Inj IVP SCH ×2 (09:57→20:24)
--- NOTE | 2016-09-21 13:22 | Wound Care Consultation ---
Wound Assessment Wound Assessment : Wound Present on Admission: Yes Wound Location Body Site Modif: mid Wound Location Body Site: abdomen Wound Type: other - non healing surgical wound Aniket Test: Does not Aniket Wound Thickness: Full Thickness Wound Length: 7.5 Wound Width: 5.0 Wound Depth: 0.2 Percent of Wound [place]/Red: 100 Wound Drainage Description: Serosanguineous Wound Drainage Amount: Moderate Wound Drainage Odor: None/Absent Tissue Surrounding Wound: Macerated Wound General Appearance: Reddened Wound Comment #1 Non healing surgical wound on mid abdominal area. wound bed pink in color. Recommendation -Keep clean and dry -Assess and f/u accordingly for any changes -Local wound care as ordered -Turn and reposition ZAK LAURA RN Sep 21, 2016 13:22
--- NOTE | 2016-09-21 15:21 | Consultation ---
History of Present Illness General Date patient seen: Sep 21, 2016 Chief Complaint: Vomiting Referring physician: Dr. Colindres Reason for Consultation: inpatient management Present Illness HPI 71 year old male with hx of ETOH abuse, recently diagnosed Cancer, poorly differentiated adeno cancer in liver. Pt didn't have appetite to eat anything, then he started drinking lizet and started to vomit which was very dark. He is admitted for UGI bleeding and azotemia. Allergies: Coded Allergies: PENICILLINS (Unverified Allergy, Severe, Rash, 05/01/14) Medication History Scheduled No Known Medications* (NKM - No Known Medications*), 0 ., (Reported) Discontinued Medications Acetaminophen* (Acetaminophen*), 650 MG ORAL Q4H PRN Discontinued Reason: Therapy completed Acetaminophen/Hydrocodone ([place] 7.5-325 Tablet), 1 TAB ORAL Q6H PRN Discontinued Reason: Therapy completed Al Hydroxide/mg Hydroxide (Mag-Al Plus Suspension), 30 ML ORAL Q6H PRN Discontinued Reason: Therapy completed Diphenhydramine Hcl* (Benadryl*), 25 MG ORAL Q6H PRN Discontinued Reason: Therapy completed Ferrous Sulfate (Ferrous Sulfate), 325 MG ORAL DAILY Discontinued Reason: Therapy completed Ondansetron* (Zofran*), 4 MG ORAL Q6H PRN Discontinued Reason: Therapy completed Polyethylene Glycol 3350* (Miralax*), 17 GM ORAL HSPRN PRN Discontinued Reason: Therapy completed Rifaximin* (Xifaxan*), 550 MG ORAL EVERY 12 HOURS Discontinued Reason: Therapy completed Temazepam* (Restoril*), 15 MG ORAL HSPRN PRN Discontinued Reason: Therapy completed Trimethoprim/Sulfamethoxazole 160/800* (Bactrim Ds Tablet*), 1 TAB ORAL TWICE A DAY Discontinued Reason: Therapy completed Patient History Healthcare decision maker Patient Resuscitation status Full Code Advanced Directive on File No Past Medical/Surgical History Past Medical/Surgical History: (1) Adenocarcinoma of liver (2) Alcohol abuse (3) Hepatitis C (4) Ventral hernia Review of Systems Constitutional: Reports: malaise, weakness Gastrointestinal: Reports: hematemesis, vomiting All Other Systems: negative except mentioned in HPI Physical Exam General Appearance: cachetic Lines, tubes and drains: peripheral, central line HEENT: normocephalic, anicteric Neck: non-tender, normal alignment Respiratory/Chest: chest wall non-tender, lungs clear Cardiovascular/Chest: normal peripheral pulses, normal rate Abdomen: normal bowel sounds, non tender Genitourinary/Rectal: normal genital exam, normal rectal exam Extremities: normal range of motion Last 24 Hour Vital Signs Date Time Temp Pulse Resp B/P Pulse Ox O2 Delivery O2 Flow Rate FiO2 09/21/16 08:00 97.7 62 18 105/60 96 Room Air 09/21/16 08:00 74 09/21/16 04:00 97.4 74 18 146/88 96 Room Air 09/21/16 04:00 79 09/21/16 04:00 97.4 74 18 146/88 96 Room Air 09/21/16 00:00 72 09/21/16 00:00 97.2 80 20 145/73 99 Room Air 09/20/16 23:22 75 16 138/81 99 Room Air 09/20/16 22:04 98.5 84 14 129/64 99 Room Air 09/20/16 20:29 98.4 80 14 138/79 99 Room Air 09/20/16 19:40 98.4 93 16 125/79 100 Room Air Intake and Output 09/20/16 09/21/16 19:00 07:00 Intake Total 475 ml Output Total 400 ml Balance 75 ml Intake IV Total 475 ml Output Urine Total 400 ml # Voids 1 Laboratory Tests Test 09/20/16 20:10 09/21/16 03:35 White Blood Count 8.0 K/UL (4.8-10.8) 7.8 K/UL (4.8-10.8) Red Blood Count 3.65 M/UL (4.70-6.10) L 3.20 M/UL (4.70-6.10) L Hemoglobin 9.1 G/DL (14.2-18.0) L 8.1 G/DL (14.2-18.0) L Hematocrit 29.9 % (42.0-52.0) L 26.0 % (42.0-52.0) L Mean Corpuscular Volume 82 FL (80-99) 81 FL (80-99) Mean Corpuscular Hemoglobin 24.9 PG (27.0-31.0) L 25.4 PG (27.0-31.0) L Mean Corpuscular Hemoglobin Concent 30.4 G/DL (32.0-36.0) L 31.3 G/DL (32.0-36.0) L Red Cell Distribution Width 24.0 % (11.6-14.8) H 23.8 % (11.6-14.8) H Platelet Count 214 K/UL (150-450) 178 K/UL (150-450) Mean Platelet Volume 8.8 FL (6.5-10.1) 8.1 FL (6.5-10.1) Neutrophils (%) (Auto) 55.9 % (45.0-75.0) 53.3 % (45.0-75.0) Lymphocytes (%) (Auto) 30.5 % (20.0-45.0) 34.3 % (20.0-45.0) Monocytes (%) (Auto) 10.5 % (1.0-10.0) H 8.4 % (1.0-10.0) Eosinophils (%) (Auto) 1.7 % (0.0-3.0) 2.3 % (0.0-3.0) Basophils (%) (Auto) 1.3 % (0.0-2.0) 1.7 % (0.0-2.0) Prothrombin Time 11.4 SEC (9.30-11.50) 12.2 SEC (9.30-11.50) H Prothromb Time International Ratio 1.1 (0.9-1.1) 1.2 (0.9-1.1) H Activated Partial Thromboplast Time 29 SEC (23-33) 32 SEC (23-33) Urine Color Yellow Urine Appearance Cloudy Urine pH 6 (4.5-8.0) Urine Specific [place] 1.015 (1.005-1.035) Urine Protein 2+ (NEGATIVE) H Urine Glucose (UA) Negative (NEGATIVE) Urine Ketones Negative (NEGATIVE) Urine Occult Blood 3+ (NEGATIVE) H Urine Nitrite Negative (NEGATIVE) Urine Bilirubin Negative (NEGATIVE) Urine Urobilinogen 4 MG/DL (0.0-1.0) H Urine Leukocyte Esterase 3+ (NEGATIVE) H Urine RBC 2-4 /HPF (0 - 0) H Urine WBC Tntc /HPF (0 - 0) H Urine Squamous Epithelial Cells None /LPF (NONE/OCC) Urine Bacteria Few /HPF (NONE) Sodium Level 136 mEQ/L (135-145) 138 mEQ/L (135-145) Potassium Level 4.5 mEQ/L (3.4-4.9) 4.9 mEQ/L (3.4-4.9) Chloride Level 98 mEQ/L (98-107) 106 mEQ/L (98-107) Carbon Dioxide Level 19 mEQ/L (20-30) L 19 mEQ/L (20-30) L Anion Gap 19 (5-15) H 13 (5-15) Blood Urea Nitrogen 36 mg/dL (7-23) H 37 mg/dL (7-23) H Creatinine 1.3 mg/dL (0.7-1.2) H 1.0 mg/dL (0.7-1.2) Estimat Glomerular Filtration Rate > 60 mL/min (>60) > 60 mL/min (>60) Glucose Level 87 mg/dL (74-106) 89 mg/dL (74-106) Calcium Level 8.5 mg/dL (8.6-10.2) L 8.3 mg/dL (8.6-10.2) L Total Bilirubin 0.5 mg/dL (0.0-1.2) 0.6 mg/dL (0.0-1.2) Aspartate Amino Transf (AST/SGOT) 77 U/L (5-40) H 72 U/L (5-40) H Alanine Aminotransferase (ALT/SGPT) 20 U/L (3-41) 18 U/L (3-41) Alkaline Phosphatase 133 U/L (40-129) H 127 U/L (40-129) Ammonia 65 umol/L (16-60) H Troponin I < 0.30 ng/mL (<=0.30) Total Protein 7.6 g/dL (6.6-8.7) 6.8 g/dL (6.6-8.7) Albumin 3.0 g/dL (3.5-5.2) L 2.4 g/dL (3.5-5.2) L Globulin 4.6 g/dL 4.4 g/dL Albumin/Globulin Ratio 0.6 (1.0-2.7) L 0.5 (1.0-2.7) L Lipase 104 U/L (< 60) H 57 U/L (< 60) Amylase Level 124 U/L (10-110) H Microbiology Date/Time Source Procedure Growth Status 09/20/16 20:10 Urine,Clean Catch Urine Culture - Preliminary Resulted Height (Feet): 5 Height (Inches): 11.00 Weight (Pounds): 161 Medications Current Medications Medications (Trade) Dose Ordered Sig/Gilles Route PRN Reason Start Time Stop Time Status Last Admin Dose Admin Acetaminophen (Tylenol) 650 mg Q4H PRN ORAL fever 09/20/16 23:15 10/20/16 23:14 Al Hydroxide/Mg Hydroxide (Mylanta II) 30 ml Q6H PRN ORAL dyspepsia 09/20/16 23:15 10/20/16 23:14 Dextrose (Dextrose 50%) STAT PRN IV Hypoglycemia 09/20/16 23:15 10/20/16 23:14 Dextrose/Sodium Chloride (D5 0.45% NS) 1,000 ml @ 75 mls/hr [id number] IV 09/20/16 23:36 10/20/16 23:35 09/21/16 01:45 Diphenhydramine HCl (Benadryl) 25 mg Q6H PRN ORAL Itching/Pruritis 09/20/16 23:15 10/20/16 23:14 Ketorolac Tromethamine (Toradol 30mg) 15 mg Q6H PRN IV moderate pain 4-6 09/20/16 23:15 09/25/16 23:14 Morphine Sulfate (Morphine Sulfate) 2 mg Q4H PRN IVP severe Pain (Pain Scale 7-10) 09/20/16 23:15 09/27/16 23:14 09/21/16 01:54 Nitroglycerin (Ntg) 0.4 mg Q5M X 3 DOSES PRN SL Prn Chest Pain 09/20/16 23:15 10/20/16 23:14 Ondansetron HCl (Zofran) 4 mg Q6H PRN IVP Nausea & Vomiting 09/20/16 23:15 10/20/16 23:14 Pantoprazole (Protonix) 40 mg EVERY 12 HOURS IVP 09/21/16 09:00 10/21/16 08:59 09/21/16 09:57 Polyethylene Glycol (Miralax) 17 gm HSPRN PRN ORAL Constipation 09/20/16 23:15 10/20/16 23:14 Temazepam (Restoril) 15 mg HSPRN PRN ORAL Insomnia 09/20/16 23:15 09/27/16 23:14 Assessment/Plan Problem List: (1) GI (gastrointestinal bleed) ICD Codes: K92.2 - GI (gastrointestinal bleed) SNOMED: 83337369 (2) ATN (acute tubular necrosis) ICD Codes: N17.0 - ATN (acute tubular necrosis) SNOMED: 44347666 (3) Adenocarcinoma of liver ICD Codes: C22.9 - Malignant neoplasm of liver, not specified as primary or secondary SNOMED: 95653700, 505994731 (4) Ventral hernia ICD Codes: K43.9 - Ventral hernia SNOMED: 778221332 (5) Anemia ICD Codes: D64.9 - Anemia, unspecified SNOMED: 904946846 (6) Hepatitis C ICD Codes: B19.20 - Unspecified viral hepatitis C without hepatic coma SNOMED: 66756439 (7) Ventral hernia ICD Codes: K43.9 - Ventral hernia without obstruction or gangrene SNOMED: 819880397 (8) Alcohol abuse ICD Codes: F10.10 - Alcohol abuse, uncomplicated SNOMED: 45454066 Assessment/Plan npo IV fluids prbc prn GI evaluation pt is alcoholic, cachectic, poor compliance, with poorly differentiated adeno cancer of liver. I suggest comfort and palliative care. TONIE BALDERAS Sep 21, 2016 15:21
[2016-09-21 16:00] VITALS: BP 144/81
--- NOTE | 2016-09-21 17:29 | History & Physical ---
History and Physical History & Physicial Dictated for Int Med - Dr Leigh no. [id number]. STEPHENIE OLSEN Sep 21, 2016 17:29
[2016-09-21 20:12] VITALS: BP 151/79
--- NOTE | 2016-09-21 21:00 | History and Physical Report ---
DATE OF ADMISSION: 09/20/2016 CHIEF COMPLAINT: This is a 71-year-old, male, presents with complaint of vomiting blood. HISTORY OF PRESENT ILLNESS: The patient was admitted to [facility] on 09/08/2016 to 09/14/2016. A CT-guided biopsy of liver masses at that time showed poorly differentiated adenocarcinoma. The patient did not follow up with gastroenterology after discharge. The patient states he began to experience vomiting blood yesterday 09/20/2016. The blood is bright red. The patient presented to [place] emergency room. The patient has been admitted for hematemesis. PAST MEDICAL HISTORY: Significant for poorly differentiated adenocarcinoma as above. PAST SURGICAL HISTORY: The patient denies. CURRENT MEDICATIONS: The patient denies. ALLERGIES: To Penicillin. SOCIAL HISTORY: The patient is single and is retired. The patient admits to tobacco use of 1/2 pack per day. The patient admits to alcohol use of 2 drinks daily. The patient denies drug abuse. REVIEW OF SYSTEMS: Constitutional: The patient complains of weight loss. The patient denies fevers or chills. HEENT: The patient denies ear or throat pain. Cardiovascular: The patient denies palpitations or chest pain. Chest: The patient denies wheeze or shortness of breath. Abdominal: The patient complains of generalized abdominal pain. The patient denies nausea, vomiting, diarrhea, or constipation. Genitourinary: The patient complains of hematemesis as above. The patient denies diarrhea or constipation. The patient denies dysuria or increased frequency of urination. Neuromuscular: The patient denies seizures or generalized weakness. PHYSICAL EXAMINATION: VITAL SIGNS: Temperature 98.5 degrees, respirations 14 to 20, pulse 75 to 84, and blood pressure 129 to 138/60 to 81. GENERAL: The patient is thin-appearing, male, in no apparent distress. HEENT: Eyes, pupils are equal and responsive to light and accommodation. Extraocular movements are intact. NECK: Supple without lymphadenopathy. CHEST: Lungs are clear to auscultation bilaterally without wheezes or rales. CARDIOVASCULAR: Regular rhythm and rate. S1 and S2 are normal without murmurs, rubs, or gallops. ABDOMEN: Soft and distended with voluntary guarding noted. There is no rebound noted. Tenderness to palpation of all four quadrants. RECTAL/GENITAL: Refused. NEUROLOGIC: Cranial nerves II through XII are grossly intact without focal deficits. Motor strength is 5/5 bilaterally. Deep tendon reflexes are 2+ plantar. LABORATORY STUDIES: WBC 8.3, hemoglobin 9.1, hematocrit 29.9, and platelets 214,000. Sodium 136, potassium 4.5, chloride 98, CO2 19, BUN 36, and creatinine 1.3. Glucose is 87. Liver function tests elevated with alkaline phosphatase of 133, ammonia level elevated at 65 and AST elevated at 77. Pro-time 11.4, INR 1.1, and PTT 29. ASSESSMENT: This is a 71-year-old male. 1. Hematemesis. 2. Upper gastrointestinal hemorrhage. 3. Alcohol abuse. 4. Poorly differentiated adenocarcinoma of the liver. TREATMENT: 1. Hematemesis/gastrointestinal hemorrhage. A Gastroenterology consultation was obtained with Dr. Arie Morrell. The patient is scheduled for an endoscopy on 09/22/2016. We will follow recommendations of Gastroenterology. The patient has been started empirically on intravenous Protonix. 2. Poorly differentiated adenocarcinoma of the liver with metastases. The patient has been seen previously by Oncology. A Oncology consultation was obtained with Dr. Kwon. Anmol Colindres M.D. DR: IGOR JOB#: [id number] CC:
[2016-09-22] VITALS (11 sets, daily range): BP systolic 102–139; BP diastolic 57–84
[2016-09-22 05:43] LABS: BASOPHILS % (AUTO) 1.8 % (0.0-2.0); EOSINOPHILS % (AUTO) 3.7 % (0.0-3.0); MEAN CORPUSCULAR HEMOGLOBIN 24.7 PG (27.0-31.0); MEAN CORPUSCULAR HGB CONC 30.9 G/DL (32.0-36.0); MEAN CORPUSCULAR VOLUME 80 FL (80-99); MEAN PLATELET VOLUME 7.7 FL (6.5-10.1); MONOCYTES % (AUTO) 9.8 % (1.0-10.0); NEUTROPHILS % (AUTO) 52.7 % (45.0-75.0); PLATELET COUNT 206 K/UL (150-450); RED BLOOD COUNT 3.86 M/UL (4.70-6.10); RED CELL DISTRIBUTION WIDTH 23.6 % (11.6-14.8); WHITE BLOOD COUNT 7.1 K/UL (4.8-10.8)
[2016-09-22 06:12] LABS: INR 1.2 (0.9-1.1); PROTHROMBIN TIME 11.9 SEC (9.30-11.50)
[2016-09-22 06:18] LABS: ALANINE AMINOTRANSFERASE 20 U/L (3-41); ALBUMIN/GLOBULIN RATIO 0.5 (1.0-2.7); ANION GAP 15 (5-15); ASPARTATE AMINO TRANSFERASE 81 U/L (5-40); CALCIUM 8.7 mg/dL (8.6-10.2); CARBON DIOXIDE 20 mEQ/L (20-30); CHLORIDE 104 mEQ/L (98-107); CREATININE 1.1 mg/dL (0.7-1.2); GLOMERULAR FILTRATION RATE > 60 mL/min (>60); HEMOLYSIS 0; POTASSIUM 4.6 mEQ/L (3.4-4.9); SODIUM 139 mEQ/L (135-145)
--- NOTE | 2016-09-22 07:57 | Pre-Procedure Note/Attestation ---
Pre-Procedure Note/Attestation Complete Prior to Procedure Planned Procedure: not applicable Procedure Narrative: egd Indications for Procedure Pre-Operative Diagnosis: gib Attestation I attest that I discussed the nature of the procedure; its benefits; risks and complications; and alternatives (and the risks and benefits of such alternatives ), prior to the procedure, with the patient (or the patient's legal customer care representative). I attest that, if there was a reasonable possibility of needing a blood transfusion, the patient (or the patient's legal customer care representative) was given the [facility] standardized written summary, pursuant to the Desmond Jonn Blood Safety Act ([place] Health and Safety Code # 1645, as amended). I attest that I re-evaluated the patient just prior to the surgery and that there has been no change in the patient's H&P, except as documented below: CHARBEL FRANCIS Sep 22, 2016 07:57
[2016-09-22] MEDS ORDERED: NS 550ML IV ONE (08:00)
[2016-09-22] MEDS ORDERED: Propofol 10mg/ml 20ml IV ONE (08:00)
--- NOTE | 2016-09-22 08:38 | Anethesia Preoperative Eval ---
Anesthesia Pre-op PMH/ROS General Date of Evaluation: Sep 22, 2016 Time of Evaluation: 08:18 Anesthesiologist: will ASA Score: ASA 3 Mallampati Score Class I : Soft palate, uvula, fauces, pillars visible Class II: Soft palate, uvula, fauces visible Class III: Soft palate, base of uvula visible Class IV: Only hard plate visible Mallampati Classification: Class II Surgeon: pauly Diagnosis: GI bleed Surgical Procedure: egd Anesthesia History: none Social History: alcohol use Allergies: Coded Allergies: PENICILLINS (Unverified Allergy, Severe, Rash, 05/01/14) Past Medical History Gastrointestinal/Genitourinary: Reports: GERD, other - HEP C, liver CA, ulcer hx Hematology/Immune: Reports: anemia Anesthesia Pre-op Phys. Exam Physician Exam Last Vital Signs Date Time Temp Pulse Resp B/P Pulse Ox O2 Delivery O2 Flow Rate FiO2 09/22/16 04:00 63 09/22/16 04:00 97.7 20 118/61 98 Room Air Airway Exam Mallampati Score: Class II Teeth: missing Anesthesia Pre-op A/P Labs Hematology Test 09/22/16 04:20 White Blood Count 7.1 K/UL (4.8-10.8) Red Blood Count 3.86 M/UL (4.70-6.10) L Hemoglobin 9.5 G/DL (14.2-18.0) L Hematocrit 30.9 % (42.0-52.0) L Mean Corpuscular Volume 80 FL (80-99) Mean Corpuscular Hemoglobin 24.7 PG (27.0-31.0) L Mean Corpuscular Hemoglobin Concent 30.9 G/DL (32.0-36.0) L Red Cell Distribution Width 23.6 % (11.6-14.8) H Platelet Count 206 K/UL (150-450) Mean Platelet Volume 7.7 FL (6.5-10.1) Neutrophils (%) (Auto) 52.7 % (45.0-75.0) Lymphocytes (%) (Auto) 32.0 % (20.0-45.0) Monocytes (%) (Auto) 9.8 % (1.0-10.0) Eosinophils (%) (Auto) 3.7 % (0.0-3.0) H Basophils (%) (Auto) 1.8 % (0.0-2.0) Coagulation Test 09/22/16 04:20 Prothrombin Time 11.9 SEC (9.30-11.50) H Prothromb Time International Ratio 1.2 (0.9-1.1) H Activated Partial Thromboplast Time 31 SEC (23-33) Chemistry Test 09/22/16 04:20 Sodium Level 139 mEQ/L (135-145) Potassium Level 4.6 mEQ/L (3.4-4.9) Chloride Level 104 mEQ/L (98-107) Carbon Dioxide Level 20 mEQ/L (20-30) Anion Gap 15 (5-15) Blood Urea Nitrogen 28 mg/dL (7-23) H Creatinine 1.1 mg/dL (0.7-1.2) Estimat Glomerular Filtration Rate > 60 mL/min (>60) Glucose Level 75 mg/dL (74-106) Calcium Level 8.7 mg/dL (8.6-10.2) Total Bilirubin 0.8 mg/dL (0.0-1.2) Aspartate Amino Transf (AST/SGOT) 81 U/L (5-40) H Alanine Aminotransferase (ALT/SGPT) 20 U/L (3-41) Alkaline Phosphatase 127 U/L (40-129) Total Protein 7.0 g/dL (6.6-8.7) Albumin 2.6 g/dL (3.5-5.2) L Globulin 4.4 g/dL Albumin/Globulin Ratio 0.5 (1.0-2.7) L Risk Assessment & Plan Plan: propofol Status Change Before Surgery: Morteza Perez MD Sep 22, 2016 08:38
--- NOTE | 2016-09-22 08:39 | Immediate Post-Op Evaluation ---
Immediate Post-Op Evalulation Immediate Post-Op Evalulation Date of Evaluation: Sep 22, 2016 Time of Evaluation: 08:52 IV Fluids: 500 Blood Pressure Systolic: 118 Blood Pressure Diastolic: 72 Pulse Rate: 72 Respiratory Rate: 16 O2 Sat by Pulse Oximetry: 100 Temperature (Fahrenheit): 97.3 Pain Score (1-10): 0 Nausea: No Vomiting: No Complications none Patient Status: awake, patent, none Hydration Status: adequate Morteza Chung MD Sep 22, 2016 08:39
--- NOTE | 2016-09-22 08:40 | 48 Hour Post Anesthesia Eval ---
Post Anesthesia Evaluation Date of Evaluation: Sep 22, 2016 Time of Evaluation: 09:10 Blood Pressure Systolic: 121 0: 80 Pulse Rate: 53 Respiratory Rate: 18 Temperature (Fahrenheit): 97.3 O2 Sat by Pulse Oximetry: 100 Airway: patent Nausea: No Vomiting: No Pain Intensity: 0 Hydration Status: adequate Cardiopulmonary Status: stable Mental Status/LOC: patient returned to baseline Follow-up Care/Observations: n/a Post-Anesthesia Complications: toloerated well Follow-up care needed: N/A Morteza Chung MD Sep 22, 2016 08:40
[2016-09-22] MEDS ORDERED: Lactulose 10gm/15ml UDC ORAL SCH (09:00)
--- NOTE | 2016-09-22 09:03 | Endoscopy Procedure Note ---
Endoscopy Procedure Note Indication for Procedure: gib Procedures Performed: EGD Operative Findings/Diagnosis: esoph and gastric varices Specimen: yes Pt Tolerated Procedure Well: Yes Estimated Blood Loss: none Anesthesiologist: will Anesthesia: MAC Implant(s) used?: No 50 yrs or older w/o bx or poly: Not Applicable 10yrs. F/U not recommended: Not Applicable CHARBEL FRANCIS Sep 22, 2016 09:03
[2016-09-22] MEDS: Pantoprazole Inj IVP SCH ×2 (09:41→21:00)
--- NOTE | 2016-09-22 11:39 | Pulmonology Progress Note ---
Assessment/Plan Problems: (1) GI (gastrointestinal bleed) (2) ATN (acute tubular necrosis) (3) Adenocarcinoma of liver (4) Ventral hernia (5) Anemia (6) Hepatitis C (7) Ventral hernia (8) Alcohol abuse Assessment/Plan endoscopy noted no more bleeding correct coagulopathy h/h stable med/surg consider comfort care and hospice care. Subjective ROS Limited/Unobtainable: No Constitutional: Reports: no symptoms HEENT: Repors: no symptoms Respiratory: Reports: no symptoms Allergies: Coded Allergies: PENICILLINS (Unverified Allergy, Severe, Rash, 05/01/14) Objective Last 24 Hour Vital Signs Date Time Temp Pulse Resp B/P Pulse Ox O2 Delivery O2 Flow Rate FiO2 09/22/16 09:45 97.7 55 18 139/77 100 Room Air 09/22/16 09:34 53 18 100 09/22/16 09:17 97.5 54 18 118/79 100 Room Air 09/22/16 09:07 53 18 121/80 100 Room Air 09/22/16 09:02 53 09/22/16 08:57 68 19 104/75 99 Room Air 09/22/16 08:52 60 20 102/70 99 Room Air 09/22/16 08:51 72 16 100 09/22/16 08:47 97.3 68 20 110/74 99 Room Air 09/22/16 04:00 63 09/22/16 04:00 97.7 50 20 118/61 98 Room Air 09/22/16 00:00 97.9 52 20 127/74 98 Room Air 09/21/16 23:44 53 09/21/16 20:55 97.0 09/21/16 20:12 97.0 50 18 151/79 97 Room Air 09/21/16 20:00 58 09/21/16 16:00 97.0 52 18 144/81 99 Room Air 09/21/16 16:00 55 Intake and Output 09/21/16 09/22/16 19:00 07:00 Intake Total 825 ml 990 ml Output Total 650 ml 1950 ml Balance 175 ml -960 ml Intake Oral 240 ml IV Total 525 ml 750 ml Blood Product 300 ml Output Urine Total 650 ml 1950 ml # Voids 3 # Bowel Movements 1 1 General Appearance: cachetic HEENT: normocephalic, atraumatic Respiratory/Chest: chest wall non-tender, lungs clear Cardiovascular: normal peripheral pulses, normal rate, regular rhythm Abdomen: normal bowel sounds, soft, non tender Genitourinary: normal external genitalia Extremities: no cyanosis Skin: no rash, rash 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/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 normal Microbiology Date/Time Source Procedure Growth Status 09/21/16 02:00 Nasal Nares Right MRSA Culture - Final Staphylococcus Aureus - Mrsa Complete 09/20/16 20:10 Urine,Clean Catch Urine Culture - Preliminary Streptococcus Species Resulted 09/21/16 00:00 Abdomen Gram Stain - Final Resulted 09/21/16 00:00 Wound Culture - Preliminary Staphylococcus Aureus Gram Negative Bacillus 1 Resulted Laboratory Tests 09/22/16 04:20: White Blood Count 7.1, Red Blood Count 3.86L, Hemoglobin 9.5L, Hematocrit 30.9L , Mean Corpuscular Volume 80, Mean Corpuscular Hemoglobin 24.7L, Mean Corpuscular Hemoglobin Concent 30.9L, Red Cell Distribution Width 23.6H, Platelet Count 206, Mean Platelet Volume 7.7, Neutrophils (%) (Auto) 52.7, Lymphocytes (%) (Auto) 32.0, Monocytes (%) (Auto) 9.8, Eosinophils (%) (Auto) 3.7H, Basophils (%) (Auto) 1.8, Prothrombin Time 11.9H, Prothromb Time International Ratio 1.2H, Activated Partial Thromboplast Time 31, Sodium Level 139, Potassium Level 4.6, Chloride Level 104, Carbon Dioxide Level 20, Anion Gap 15, Blood Urea Nitrogen 28H, Creatinine 1.1, Estimat Glomerular Filtration Rate > 60, Glucose Level 75, Calcium Level 8.7, Total Bilirubin 0.8, Aspartate Amino Transf (AST/SGOT) 81H, Alanine Aminotransferase (ALT/SGPT) 20, Alkaline Phosphatase 127, Total Protein 7.0, Albumin 2.6L, Globulin 4.4, Albumin/ Globulin Ratio 0.5L Current Medications Medications (Trade) Dose Ordered Sig/Gilles Route PRN Reason Start Time Stop Time Status Last Admin Dose Admin Acetaminophen (Tylenol) 650 mg Q4H PRN ORAL fever 09/20/16 23:15 10/20/16 23:14 Al Hydroxide/Mg Hydroxide (Mylanta II) 30 ml Q6H PRN ORAL dyspepsia 09/20/16 23:15 10/20/16 23:14 Dextrose (Dextrose 50%) STAT PRN IV Hypoglycemia 09/20/16 23:15 10/20/16 23:14 Dextrose/Sodium Chloride (D5 0.45% NS) 1,000 ml @ 75 mls/hr [id number] IV 09/20/16 23:36 10/20/16 23:35 09/21/16 20:25 Diphenhydramine HCl (Benadryl) 25 mg Q6H PRN ORAL Itching/Pruritis 09/20/16 23:15 10/20/16 23:14 Ketorolac Tromethamine (Toradol 30mg) 15 mg Q6H PRN IV moderate pain 4-6 09/20/16 23:15 09/25/16 23:14 09/21/16 20:25 Lactulose (Cephulac) 10 gm THREE TIMES A DAY ORAL 09/22/16 09:00 10/22/16 08:59 09/22/16 10:08 Morphine Sulfate (Morphine Sulfate) 2 mg Q4H PRN IVP severe Pain (Pain Scale 7-10) 09/20/16 23:15 09/27/16 23:14 09/21/16 01:54 Nitroglycerin (Ntg) 0.4 mg Q5M X 3 DOSES PRN SL Prn Chest Pain 09/20/16 23:15 10/20/16 23:14 Ondansetron HCl (Zofran) 4 mg Q6H PRN IVP Nausea & Vomiting 09/20/16 23:15 10/20/16 23:14 Pantoprazole (Protonix) 40 mg EVERY 12 HOURS IVP 09/21/16 09:00 10/21/16 08:59 09/22/16 09:41 Polyethylene Glycol (Miralax) 17 gm HSPRN PRN ORAL Constipation 09/20/16 23:15 10/20/16 23:14 Temazepam (Restoril) 15 mg HSPRN PRN ORAL Insomnia 09/20/16 23:15 09/27/16 23:14 TONIE BALDERAS Sep 22, 2016 11:39
[2016-09-22] MEDS ORDERED: Nitroglycerin Subl 0.4mg tab (Bottle Of 25) SL PRN (13:30)
[2016-09-22] MEDS ORDERED: Miralax 17gm pkt ORAL PRN (13:30)
[2016-09-22] MEDS ORDERED: Mylanta II UD 30ml ORAL PRN (13:30)
[2016-09-22] MEDS ORDERED: Ketorolac 30mg Inj IV PRN (13:30)
[2016-09-22] MEDS: D5 1/2NS 1,000 ML IV SCH ×2 (13:30→14:48)
[2016-09-22] MEDS: Morphine Sulfate 2mg/ml Inj IVP PRN (13:49)
[2016-09-22] MEDS: Lactulose 10gm/15ml UDC ORAL SCH ×2 (14:47→18:00)
--- NOTE | 2016-09-22 16:19 | Procedure Note ---
SURGEON: Arie Morrell M.D. REFERRING PHYSICIAN: Lennox Leigh M.D. PROCEDURE: Upper endoscopy with biopsy. ANESTHESIA: Per Dr. Chung. INSTRUMENT: Olympus adult flexible upper endoscope INDICATION FOR PROCEDURE: Upper gastrointestinal bleeding. The procedure, risks, benefits, and possible consequences, including hemorrhage, aspiration, perforation and infection, and alternative treatments, were explained to the patient/legal guardian by Dr. Arie Morrell and the patient/legal guardian understood and accepted these risks. DESCRIPTION OF PROCEDURE: After informed consent was obtained and the patient was adequately sedated, the Olympus upper endoscope was advanced through the mouth into the second portion of the duodenum and retroflexion maneuver was performed In the stomach. The patient had evidence of four columns of grade 2/grade 3 distal esophageal varices. There was no obvious bleeding at this time in the upper esophagus, and retroflexion in the stomach showed evidence of at least 2/3 large gastric varices. The patient also has evidence of a medium-sized paraesophageal hernia. In the stomach, there was also diffuse gastritis. Random biopsy from antrum was obtained to rule out H. pylori infection. In the duodenum, there were sutures from prior surgery. Most probably, the patient had duodenal ulcer, which required surgery. At this time, the upper endoscope was retrieved and the procedure was terminated. SUMMARY OF FINDINGS: 1. Esophageal varices. 2. Gastric varices. 3. Paraesophageal hernia. 4. Gastritis, status post biopsy. 5. History of duodenal ulcer with sutures in the duodenal bulb. RECOMMENDATIONS: At this time, the patient if he re-bleeds given his large gastric varices, he most probably would benefit from TIPS procedure. Meanwhile, we are going to place the patient on propranolol 10 mg p.o. t.i.d. and titrate up for systolic blood pressure around 100s to 90s and pulse around 60s. I want to thank Dr. Lennox Leigh for this kind referral. Arie Morrell M.D. DR: SHANNON JOB#: [id number] CC: Lennox Leigh M.D.; Fax#: [phone]
--- NOTE | 2016-09-22 17:19 | Internal Med Progress Note ---
Subjective Date of Service: Sep 22, 2016 Physician Name Anmol Olsen Attending Physician Lennox Leigh MD Current Medications Medications (Trade) Dose Ordered Sig/Gilles Route PRN Reason Start Time Stop Time Status Last Admin Dose Admin Acetaminophen (Tylenol) 650 mg Q4H PRN ORAL fever 09/22/16 13:30 10/22/16 13:29 Al Hydroxide/Mg Hydroxide (Mylanta II) 30 ml Q6H PRN ORAL dyspepsia 09/22/16 13:30 10/22/16 13:29 Dextrose (Dextrose 50%) STAT PRN IV Hypoglycemia 09/22/16 13:30 10/22/16 13:29 Dextrose/Sodium Chloride (D5 0.45% NS) 1,000 ml @ 75 mls/hr [id number] IV 09/22/16 13:30 10/22/16 13:29 09/22/16 14:48 Diphenhydramine HCl (Benadryl) 25 mg Q6H PRN ORAL Itching/Pruritis 09/22/16 13:30 10/22/16 13:29 Ketorolac Tromethamine (Toradol 30mg) 15 mg Q6H PRN IV moderate pain 4-6 09/22/16 13:30 09/27/16 13:29 Lactulose (Cephulac) 10 gm THREE TIMES A DAY ORAL 09/22/16 14:00 10/22/16 13:59 09/22/16 14:47 Morphine Sulfate (Morphine Sulfate) 2 mg Q4H PRN IVP severe Pain (Pain Scale 7-10) 09/22/16 13:30 09/29/16 13:29 09/22/16 13:49 Nitroglycerin (Ntg) 0.4 mg Q5M X 3 DOSES PRN SL Prn Chest Pain 09/22/16 13:30 10/22/16 13:29 Ondansetron HCl (Zofran) 4 mg Q6H PRN IVP Nausea & Vomiting 09/22/16 13:30 10/22/16 13:29 Pantoprazole (Protonix) 40 mg EVERY 12 HOURS IVP 09/22/16 21:00 10/22/16 20:59 Polyethylene Glycol (Miralax) 17 gm HSPRN PRN ORAL Constipation 09/22/16 13:30 10/22/16 13:29 Temazepam (Restoril) 15 mg HSPRN PRN ORAL Insomnia 09/22/16 13:30 09/29/16 13:29 Allergies: Coded Allergies: PENICILLINS (Unverified Allergy, Severe, Rash, 05/01/14) ROS Limited/Unobtainable: No Constitutional: Reports: no symptoms HEENT: Reports: no symptoms Cardiovascular: Reports: no symptoms Respiratory: Reports: no symptoms Genitourinary: Reports: no symptoms Neurologic/Psychiatric: Reports: no symptoms Subjective 71 YO M admitted with hematemesis. S/P endoscopy and colonoscopy 09/22/16. Now esophageal and gastric varices. Cover for Int Med Dr Leigh. Objective Last Vital Signs Date Time Temp Pulse Resp B/P Pulse Ox O2 Delivery O2 Flow Rate FiO2 09/22/16 12:00 96.9 65 20 126/70 100 Room Air General Appearance: mild distress, lethargic, thin EENT: PERRL/EOMI, normal ENT inspection, TMs normal Neck: non-tender, normal alignment, supple Cardiovascular: normal peripheral pulses, normal rate, regular rhythm, no gallop/murmur, no JVD Respiratory/Chest: chest wall non-tender, lungs clear, normal breath sounds, no respiratory distress, no accessory muscle use Abdomen: decreased bowel sounds, distended, guarding, tender Extremities: normal range of motion Edema: trace edema Neurologic: manager industrial II-XII grossly normal, no motor/sensory deficits Skin: normal pigmentation, warm/dry Laboratory Tests Test 09/22/16 04:20 White Blood Count 7.1 K/UL (4.8-10.8) Red Blood Count 3.86 M/UL (4.70-6.10) L Hemoglobin 9.5 G/DL (14.2-18.0) L Hematocrit 30.9 % (42.0-52.0) L Mean Corpuscular Volume 80 FL (80-99) Mean Corpuscular Hemoglobin 24.7 PG (27.0-31.0) L Mean Corpuscular Hemoglobin Concent 30.9 G/DL (32.0-36.0) L Red Cell Distribution Width 23.6 % (11.6-14.8) H Platelet Count 206 K/UL (150-450) Mean Platelet Volume 7.7 FL (6.5-10.1) Neutrophils (%) (Auto) 52.7 % (45.0-75.0) Lymphocytes (%) (Auto) 32.0 % (20.0-45.0) Monocytes (%) (Auto) 9.8 % (1.0-10.0) Eosinophils (%) (Auto) 3.7 % (0.0-3.0) H Basophils (%) (Auto) 1.8 % (0.0-2.0) Prothrombin Time 11.9 SEC (9.30-11.50) H Prothromb Time International Ratio 1.2 (0.9-1.1) H Activated Partial Thromboplast Time 31 SEC (23-33) Sodium Level 139 mEQ/L (135-145) Potassium Level 4.6 mEQ/L (3.4-4.9) Chloride Level 104 mEQ/L (98-107) Carbon Dioxide Level 20 mEQ/L (20-30) Anion Gap 15 (5-15) Blood Urea Nitrogen 28 mg/dL (7-23) H Creatinine 1.1 mg/dL (0.7-1.2) Estimat Glomerular Filtration Rate > 60 mL/min (>60) Glucose Level 75 mg/dL (74-106) Calcium Level 8.7 mg/dL (8.6-10.2) Total Bilirubin 0.8 mg/dL (0.0-1.2) Aspartate Amino Transf (AST/SGOT) 81 U/L (5-40) H Alanine Aminotransferase (ALT/SGPT) 20 U/L (3-41) Alkaline Phosphatase 127 U/L (40-129) Total Protein 7.0 g/dL (6.6-8.7) Albumin 2.6 g/dL (3.5-5.2) L Globulin 4.4 g/dL Albumin/Globulin Ratio 0.5 (1.0-2.7) L Microbiology Date/Time Source Procedure Growth Status 09/21/16 02:00 Nasal Nares Right MRSA Culture - Final Staphylococcus Aureus - Mrsa Complete 09/20/16 20:10 Urine,Clean Catch Urine Culture - Preliminary Streptococcus Species Resulted 09/21/16 00:00 Abdomen Gram Stain - Final Resulted 09/21/16 00:00 Wound Culture - Preliminary Staphylococcus Aureus Gram Negative Bacillus 1 Resulted Intake and Output 09/21/16 09/22/16 19:00 07:00 Intake Total 825 ml 990 ml Output Total 650 ml 1950 ml Balance 175 ml -960 ml Intake Oral 240 ml IV Total 525 ml 750 ml Blood Product 300 ml Output Urine Total 650 ml 1950 ml # Voids 3 # Bowel Movements 1 1 Assessment/Plan Problem List: (1) Anemia (2) GI (gastrointestinal bleed) (3) Adenocarcinoma of liver Assessment & Plan: Metastatic. See onc note. (4) Hepatitis C (5) ETOH abuse (6) Liver masses (7) GERD (gastroesophageal reflux disease) (8) Perforated gastric ulcer (9) Perforated duodenal ulcer (10) Iron deficiency anemia (11) Abdominal pain (12) Elevated liver enzymes (13) Hematemesis Assessment & Plan: Esophageal and gastric varices. S/P endoscopy and colonoscopy 09/22/16-see GI note. Status: not improved Assessment/Plan Prognosis extremely poor. ANMOL OLSEN Sep 22, 2016 17:19
[2016-09-22] MEDS ORDERED: NS 275ml ONE (18:27)
[2016-09-22] MEDS ORDERED: Tubing Blood Filter IV ONE (18:27)
[2016-09-22] MEDS ORDERED: D5 1/2NS 1000ml IV ONE (18:27)
--- NOTE | 2016-09-22 21:44 | Diagnostic Imaging Report ---
APPROVED REPORT CPT Code: 91896 Present Symptoms Comments: Pain RIGHT LEG: Venous imaging reveals a patent deep venous system. There is no evidence of thrombus within the femoral, popliteal or tibial segments. The greater saphenous vein is also within normal limits. Doppler indicates normal spontaneous flow within these segments. LEFT LEG: Venous imaging reveals recanalized chronic thrombus in the superficial femoral vein. The remainder of the deep venous system is within normal limits. There is no evidence of thrombus in the common femoral, popliteal or calf veins. The greater saphenous vein is also within normal limits. Doppler indicates normal spontaneous flow within these segments.. There is no evidence of acute deep vein thrombosis.
[2016-09-23] VITALS: BP 127/79
[2016-09-23] MEDS: Morphine Sulfate 2mg/ml Inj IVP PRN ×2 (01:05→08:26)
[2016-09-23 04:00] VITALS: BP 116/68
[2016-09-23 06:22] LABS: BASOPHILS % (AUTO) 1.4 % (0.0-2.0); EOSINOPHILS % (AUTO) 3.5 % (0.0-3.0); LYMPHOCYTES % (AUTO) 31.5 % (20.0-45.0); MEAN CORPUSCULAR HEMOGLOBIN 24.7 PG (27.0-31.0); MEAN CORPUSCULAR HGB CONC 30.7 G/DL (32.0-36.0); MEAN CORPUSCULAR VOLUME 81 FL (80-99); MEAN PLATELET VOLUME 8.1 FL (6.5-10.1); MONOCYTES % (AUTO) 9.8 % (1.0-10.0); NEUTROPHILS % (AUTO) 53.9 % (45.0-75.0); PLATELET COUNT 190 K/UL (150-450); RED BLOOD COUNT 3.41 M/UL (4.70-6.10); RED CELL DISTRIBUTION WIDTH 23.4 % (11.6-14.8); WHITE BLOOD COUNT 7.5 K/UL (4.8-10.8)
[2016-09-23 06:45] LABS: ALANINE AMINOTRANSFERASE 19 U/L (3-41); ALBUMIN/GLOBULIN RATIO 0.5 (1.0-2.7); AMMONIA 142 umol/L (16-60); ANION GAP 14 (5-15); ASPARTATE AMINO TRANSFERASE 81 U/L (5-40); CALCIUM 8.3 mg/dL (8.6-10.2); CARBON DIOXIDE 20 mEQ/L (20-30); CHLORIDE 105 mEQ/L (98-107); CREATININE 1.1 mg/dL (0.7-1.2); GLOMERULAR FILTRATION RATE > 60 mL/min (>60); HEMOLYSIS 1; POTASSIUM 4.6 mEQ/L (3.4-4.9); SODIUM 139 mEQ/L (135-145)
[2016-09-23] MEDS: D5 1/2NS 1,000 ML IV SCH (07:51)
[2016-09-23 08:00] VITALS: BP 111/63
[2016-09-23] MEDS: Lactulose 10gm/15ml UDC ORAL SCH ×3 (08:26→18:28)
[2016-09-23] MEDS: Pantoprazole Inj IVP SCH ×2 (08:26→22:12)
--- NOTE | 2016-09-23 11:39 | General Progress Note ---
Assessment/Plan Problem List: (1) Esophageal varices ICD Codes: I85.00 - Esophageal varices without bleeding SNOMED: 36863884 (2) Gastric varices ICD Codes: I86.4 - Gastric varices SNOMED: 81387487 (3) Encephalopathy ICD Codes: G93.40 - Encephalopathy, unspecified SNOMED: 09080129, 915557675 (4) Anemia ICD Codes: D64.9 - Anemia, unspecified SNOMED: 663380327 (5) Alcohol abuse ICD Codes: F10.10 - Alcohol abuse, uncomplicated SNOMED: 03761837 (6) GI (gastrointestinal bleed) ICD Codes: K92.2 - GI (gastrointestinal bleed) SNOMED: 52137590 (7) Ventral hernia ICD Codes: K43.9 - Ventral hernia without obstruction or gangrene SNOMED: 544329627 Assessment/Plan add xifaxan start octreotide not a good candidate for propanolol given HR in 60's risky for tips given elevated ammonia level over all poor prognosis Subjective ROS Limited/Unobtainable: Yes Allergies: Coded Allergies: PENICILLINS (Unverified Allergy, Severe, Rash, 05/01/14) Subjective had maroon colored stool Objective Last 24 Hour Vital Signs Date Time Temp Pulse Resp B/P Pulse Ox O2 Delivery O2 Flow Rate FiO2 09/23/16 08:00 97.9 68 19 111/63 97 Room Air 09/23/16 04:00 97.5 68 18 116/68 97 Room Air 09/23/16 01:35 98.2 09/23/16 00:00 98.2 64 20 127/79 98 Room Air 09/22/16 20:00 97.5 69 20 124/84 96 Room Air 09/22/16 16:00 98.2 78 20 104/57 96 Room Air 09/22/16 12:00 96.9 65 20 126/70 100 Room Air 09/22/16 12:00 60 Intake and Output 09/22/16 09/23/16 19:00 07:00 Intake Total 1225 ml 990 ml Output Total 400 ml 100 ml Balance 825 ml 890 ml Intake Oral 50 ml 240 ml IV Total 1175 ml 750 ml Output Urine Total 400 ml 100 ml # Voids 2 # Bowel Movements 2 2 Laboratory Tests 09/23/16 05:00: White Blood Count 7.5, Red Blood Count 3.41L, Hemoglobin 8.4L, Hematocrit 27.5L , Mean Corpuscular Volume 81, Mean Corpuscular Hemoglobin 24.7L, Mean Corpuscular Hemoglobin Concent 30.7L, Red Cell Distribution Width 23.4H, Platelet Count 190, Mean Platelet Volume 8.1, Neutrophils (%) (Auto) 53.9, Lymphocytes (%) (Auto) 31.5, Monocytes (%) (Auto) 9.8, Eosinophils (%) (Auto) 3.5H, Basophils (%) (Auto) 1.4, Sodium Level 139, Potassium Level 4.6, Chloride Level 105, Carbon Dioxide Level 20, Anion Gap 14, Blood Urea Nitrogen 25H, Creatinine 1.1, Estimat Glomerular Filtration Rate > 60, Glucose Level 98, Calcium Level 8.3L, Total Bilirubin 0.5, Aspartate Amino Transf (AST/SGOT) 81H, Alanine Aminotransferase (ALT/SGPT) 19, Alkaline Phosphatase 154H, Ammonia 142H , Total Protein 7.0, Albumin 2.5L, Globulin 4.5, Albumin/Globulin Ratio 0.5L Height (Feet): 5 Height (Inches): 11.00 Weight (Pounds): 161 General Appearance: alert EENT: normal ENT inspection Neck: supple Cardiovascular: normal rate Respiratory/Chest: decreased breath sounds Abdomen: soft, hypoactive bowel sounds Extremities: non-tender CHARBEL FRANCIS Sep 23, 2016 11:39
[2016-09-23 12:00] VITALS: BP 132/72
--- NOTE | 2016-09-23 12:58 | Pulmonology Progress Note ---
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 hepatic encephalopathy UTI/Strep hepatitis C PLAN OF CARE [facility] floor start Octreotide gtt gentle IVF GI follows s/p upper endoscopy initial recommendation from GI - if rebleeds will benefit from TIPS given large gastric varices however due to ammonia trending up, not safe for now - per GI stared on Propranolol not a good choice, given HR in 60, dc abx, urine cx + Strep, ammonia with trend up- on lactulose, added Rifaximin per GI lipase down to normal monitor HH , transfuse prn, stable antiemetic as need pain management O2 HHN prn overall poor prognosis recommend palliative care Subjective Allergies: Coded Allergies: PENICILLINS (Unverified Allergy, Severe, Rash, 05/01/14) Subjective ammonia trending up reported melena in stool yesterday x 3 no BM this am yet Objective Last 24 Hour Vital Signs Date Time Temp Pulse Resp B/P Pulse Ox O2 Delivery O2 Flow Rate FiO2 09/23/16 08:00 97.9 68 19 111/63 97 Room Air 09/23/16 04:00 97.5 68 18 116/68 97 Room Air 09/23/16 01:35 98.2 09/23/16 00:00 98.2 64 20 127/79 98 Room Air 09/22/16 20:00 97.5 69 20 124/84 96 Room Air 09/22/16 16:00 98.2 78 20 104/57 96 Room Air Intake and Output 09/22/16 09/23/16 19:00 07:00 Intake Total 1225 ml 990 ml Output Total 400 ml 100 ml Balance 825 ml 890 ml Intake Oral 50 ml 240 ml IV Total 1175 ml 750 ml Output Urine Total 400 ml 100 ml # Voids 2 # Bowel Movements 2 2 General Appearance: no acute distress HEENT: normocephalic, atraumatic, anicteric, mucous membranes moist Respiratory/Chest: lungs clear, no respiratory distress, no accessory muscle use Cardiovascular: normal peripheral pulses, normal rate, no JVD Abdomen: normal bowel sounds, soft, non tender - mild distention Extremities: no edema Neurologic/Psychiatric: no motor/sensory deficits, alert, oriented x 3, responsive Musculoskeletal: normal muscle bulk Microbiology Date/Time Source Procedure Growth Status 09/21/16 02:00 Nasal Nares Right MRSA Culture - Final Staphylococcus Aureus - Mrsa Complete 09/20/16 20:10 Urine,Clean Catch Urine Culture - Final Enterococcus Faecalis Complete 09/21/16 02:00 Rectum VRE Culture - Final NO VANCOMYCIN RESISTANT ENTEROCOCCUS ... Complete 09/21/16 00:00 Abdomen Gram Stain - Final Complete 09/21/16 00:00 Wound Culture - Final Staphylococcus Aureus - Mrsa Morganella Morg Spp Morganii Complete Laboratory Tests 09/23/16 05:00: White Blood Count 7.5, Red Blood Count 3.41L, Hemoglobin 8.4L, Hematocrit 27.5L , Mean Corpuscular Volume 81, Mean Corpuscular Hemoglobin 24.7L, Mean Corpuscular Hemoglobin Concent 30.7L, Red Cell Distribution Width 23.4H, Platelet Count 190, Mean Platelet Volume 8.1, Neutrophils (%) (Auto) 53.9, Lymphocytes (%) (Auto) 31.5, Monocytes (%) (Auto) 9.8, Eosinophils (%) (Auto) 3.5H, Basophils (%) (Auto) 1.4, Sodium Level 139, Potassium Level 4.6, Chloride Level 105, Carbon Dioxide Level 20, Anion Gap 14, Blood Urea Nitrogen 25H, Creatinine 1.1, Estimat Glomerular Filtration Rate > 60, Glucose Level 98, Calcium Level 8.3L, Total Bilirubin 0.5, Aspartate Amino Transf (AST/SGOT) 81H, Alanine Aminotransferase (ALT/SGPT) 19, Alkaline Phosphatase 154H, Ammonia 142H , Total Protein 7.0, Albumin 2.5L, Globulin 4.5, Albumin/Globulin Ratio 0.5L Current Medications Medications (Trade) Dose Ordered Sig/Gilles Route PRN Reason Start Time Stop Time Status Last Admin Dose Admin Acetaminophen (Tylenol) 650 mg Q4H PRN ORAL fever 09/22/16 13:30 10/22/16 13:29 Al Hydroxide/Mg Hydroxide (Mylanta II) 30 ml Q6H PRN ORAL dyspepsia 09/22/16 13:30 10/22/16 13:29 Ciprofloxacin (Cipro 250mg tab) 250 mg EVERY 12 HOURS ORAL 09/23/16 09:00 09/30/16 08:59 09/23/16 08:25 Dextrose (Dextrose 50%) STAT PRN IV Hypoglycemia 09/22/16 13:30 10/22/16 13:29 Dextrose/Sodium Chloride (D5 0.45% NS) 1,000 ml @ 75 mls/hr [id number] IV 09/22/16 13:30 10/22/16 13:29 09/23/16 07:51 Diphenhydramine HCl (Benadryl) 25 mg Q6H PRN ORAL Itching/Pruritis 09/22/16 13:30 10/22/16 13:29 Ketorolac Tromethamine (Toradol 30mg) 15 mg Q6H PRN IV moderate pain 4-6 09/22/16 13:30 09/27/16 13:29 Lactulose (Cephulac) 10 gm THREE TIMES A DAY ORAL 09/22/16 14:00 10/22/16 13:59 09/22/16 14:47 Morphine Sulfate (Morphine Sulfate) 2 mg Q4H PRN IVP severe Pain (Pain Scale 7-10) 09/22/16 13:30 09/29/16 13:29 09/23/16 08:26 Nitroglycerin (Ntg) 0.4 mg Q5M X 3 DOSES PRN SL Prn Chest Pain 09/22/16 13:30 10/22/16 13:29 Octreotide Acetate/Sodium Chloride (SandoSTATIN/NS) 500 ml @ 50 mls/hr Q10H IV 09/23/16 13:00 10/23/16 12:59 Ondansetron HCl (Zofran) 4 mg Q6H PRN IVP Nausea & Vomiting 09/22/16 13:30 10/22/16 13:29 Pantoprazole (Protonix) 40 mg EVERY 12 HOURS IVP 09/22/16 21:00 10/22/16 20:59 Polyethylene Glycol (Miralax) 17 gm HSPRN PRN ORAL Constipation 09/22/16 13:30 10/22/16 13:29 Rifaximin 550 mg 550 mg EVERY 12 HOURS ORAL 09/23/16 21:00 09/30/16 20:59 Temazepam (Restoril) 15 mg HSPRN PRN ORAL Insomnia 09/22/16 13:30 09/29/16 13:29 Miner (Vanchtein),Yvonne JACOBSEN Sep 23, 2016 12:58
[2016-09-23] MEDS ORDERED: Octreotide Acetate 500 MCG in Sodium Chloride 499 ML IV SCH (13:00)
[2016-09-23] MEDS: Octreotide Acetate 500 MCG in Sodium Chloride 499 ML IV SCH ×2 (13:38→22:12)
--- NOTE | 2016-09-23 14:12 | Internal Med Progress Note ---
Subjective Date of Service: Sep 23, 2016 Physician Name Anmol Olsen Attending Physician Lennox Leigh MD Current Medications Medications (Trade) Dose Ordered Sig/Gilles Route PRN Reason Start Time Stop Time Status Last Admin Dose Admin Acetaminophen (Tylenol) 650 mg Q4H PRN ORAL fever 09/22/16 13:30 10/22/16 13:29 Al Hydroxide/Mg Hydroxide (Mylanta II) 30 ml Q6H PRN ORAL dyspepsia 09/22/16 13:30 10/22/16 13:29 Ciprofloxacin (Cipro 250mg tab) 250 mg EVERY 12 HOURS ORAL 09/23/16 09:00 09/30/16 08:59 09/23/16 08:25 Dextrose (Dextrose 50%) STAT PRN IV Hypoglycemia 09/22/16 13:30 10/22/16 13:29 Dextrose/Sodium Chloride (D5 0.45% NS) 1,000 ml @ 75 mls/hr [id number] IV 09/22/16 13:30 10/22/16 13:29 09/23/16 07:51 Diphenhydramine HCl (Benadryl) 25 mg Q6H PRN ORAL Itching/Pruritis 09/22/16 13:30 10/22/16 13:29 Ketorolac Tromethamine (Toradol 30mg) 15 mg Q6H PRN IV moderate pain 4-6 09/22/16 13:30 09/27/16 13:29 Lactulose (Cephulac) 10 gm THREE TIMES A DAY ORAL 09/22/16 14:00 10/22/16 13:59 09/23/16 13:37 Morphine Sulfate (Morphine Sulfate) 2 mg Q4H PRN IVP severe Pain (Pain Scale 7-10) 09/22/16 13:30 09/29/16 13:29 09/23/16 08:26 Nitroglycerin (Ntg) 0.4 mg Q5M X 3 DOSES PRN SL Prn Chest Pain 09/22/16 13:30 10/22/16 13:29 Octreotide Acetate/Sodium Chloride (SandoSTATIN/NS) 500 ml @ 50 mls/hr Q10H IV 09/23/16 13:00 10/23/16 12:59 09/23/16 13:38 Ondansetron HCl (Zofran) 4 mg Q6H PRN IVP Nausea & Vomiting 09/22/16 13:30 10/22/16 13:29 Pantoprazole (Protonix) 40 mg EVERY 12 HOURS IVP 09/22/16 21:00 10/22/16 20:59 Polyethylene Glycol (Miralax) 17 gm HSPRN PRN ORAL Constipation 09/22/16 13:30 10/22/16 13:29 Rifaximin 550 mg 550 mg EVERY 12 HOURS ORAL 09/23/16 21:00 09/30/16 20:59 Temazepam (Restoril) 15 mg HSPRN PRN ORAL Insomnia 09/22/16 13:30 09/29/16 13:29 Allergies: Coded Allergies: PENICILLINS (Unverified Allergy, Severe, Rash, 05/01/14) Constitutional: Reports: no symptoms HEENT: Reports: no symptoms Cardiovascular: Reports: no symptoms Respiratory: Reports: no symptoms Gastrointestinal/Abdominal: Reports: no symptoms Genitourinary: Reports: no symptoms Neurologic/Psychiatric: Reports: no symptoms Subjective 71 YO M admitted with hematemesis. S/P endoscopy and colonoscopy 09/22/16. Now esophageal and gastric varices. Cover for Int Med Dr Leigh. Objective Last Vital Signs Date Time Temp Pulse Resp B/P Pulse Ox O2 Delivery O2 Flow Rate FiO2 09/23/16 12:00 97.9 59 19 132/72 97 Room Air Laboratory Tests Test 09/23/16 05:00 White Blood Count 7.5 K/UL (4.8-10.8) Red Blood Count 3.41 M/UL (4.70-6.10) L Hemoglobin 8.4 G/DL (14.2-18.0) L Hematocrit 27.5 % (42.0-52.0) L Mean Corpuscular Volume 81 FL (80-99) Mean Corpuscular Hemoglobin 24.7 PG (27.0-31.0) L Mean Corpuscular Hemoglobin Concent 30.7 G/DL (32.0-36.0) L Red Cell Distribution Width 23.4 % (11.6-14.8) H Platelet Count 190 K/UL (150-450) Mean Platelet Volume 8.1 FL (6.5-10.1) Neutrophils (%) (Auto) 53.9 % (45.0-75.0) Lymphocytes (%) (Auto) 31.5 % (20.0-45.0) Monocytes (%) (Auto) 9.8 % (1.0-10.0) Eosinophils (%) (Auto) 3.5 % (0.0-3.0) H Basophils (%) (Auto) 1.4 % (0.0-2.0) Sodium Level 139 mEQ/L (135-145) Potassium Level 4.6 mEQ/L (3.4-4.9) Chloride Level 105 mEQ/L (98-107) Carbon Dioxide Level 20 mEQ/L (20-30) Anion Gap 14 (5-15) Blood Urea Nitrogen 25 mg/dL (7-23) H Creatinine 1.1 mg/dL (0.7-1.2) Estimat Glomerular Filtration Rate > 60 mL/min (>60) Glucose Level 98 mg/dL (74-106) Calcium Level 8.3 mg/dL (8.6-10.2) L Total Bilirubin 0.5 mg/dL (0.0-1.2) Aspartate Amino Transf (AST/SGOT) 81 U/L (5-40) H Alanine Aminotransferase (ALT/SGPT) 19 U/L (3-41) Alkaline Phosphatase 154 U/L (40-129) H Ammonia 142 umol/L (16-60) H Total Protein 7.0 g/dL (6.6-8.7) Albumin 2.5 g/dL (3.5-5.2) L Globulin 4.5 g/dL Albumin/Globulin Ratio 0.5 (1.0-2.7) L Microbiology Date/Time Source Procedure Growth Status 09/21/16 02:00 Nasal Nares Right MRSA Culture - Final Staphylococcus Aureus - Mrsa Complete 09/20/16 20:10 Urine,Clean Catch Urine Culture - Final Enterococcus Faecalis Complete 09/21/16 02:00 Rectum VRE Culture - Final NO VANCOMYCIN RESISTANT ENTEROCOCCUS ... Complete 09/21/16 00:00 Abdomen Gram Stain - Final Complete 09/21/16 00:00 Wound Culture - Final Staphylococcus Aureus - Mrsa Morganella Morg Spp Morganii Complete Intake and Output 09/22/16 09/23/16 19:00 07:00 Intake Total 1225 ml 990 ml Output Total 400 ml 100 ml Balance 825 ml 890 ml Intake Oral 50 ml 240 ml IV Total 1175 ml 750 ml Output Urine Total 400 ml 100 ml # Voids 2 # Bowel Movements 2 2 Objective General Appearance: mild distress, lethargic, thin EENT: PERRL/EOMI, normal ENT inspection, TMs normal Neck: non-tender, normal alignment, supple Cardiovascular: normal peripheral pulses, normal rate, regular rhythm, no gallop/murmur, no JVD Respiratory/Chest: chest wall non-tender, lungs clear, normal breath sounds, no respiratory distress, no accessory muscle use Abdomen: decreased bowel sounds, distended, guarding, tender Extremities: normal range of motion Edema: trace edema 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 See onc note. (4) Hepatitis C (5) ETOH abuse (6) Liver masses (7) GERD (gastroesophageal reflux disease) (8) Perforated gastric ulcer (9) Perforated duodenal ulcer (10) Iron deficiency anemia (11) Abdominal pain (12) Elevated liver enzymes (13) Hematemesis Assessment & Plan: Esophageal and gastric varices. S/P endoscopy and colonoscopy 09/22/16-see GI note. Status: not improved Assessment/Plan Prognosis extremely poor. ANMOL OLSEN Sep 23, 2016 14:12
[2016-09-23 16:00] VITALS: BP 120/78
[2016-09-23 19:00] VITALS: BP 144/77
[2016-09-23] MEDS: Rifaximin 550mg tab ORAL SCH (22:12)
[2016-09-24] VITALS: BP 125/72
[2016-09-24 04:30] VITALS: BP 134/70
[2016-09-24 07:33] LABS: INR 1.1 (0.9-1.1); PROTHROMBIN TIME 11.6 SEC (9.30-11.50)
[2016-09-24 07:34] LABS: BASOPHILS % (AUTO) 1.2 % (0.0-2.0); EOSINOPHILS % (AUTO) 3.5 % (0.0-3.0); LYMPHOCYTES % (AUTO) 25.6 % (20.0-45.0); MEAN CORPUSCULAR HEMOGLOBIN 24.7 PG (27.0-31.0); MEAN CORPUSCULAR HGB CONC 30.6 G/DL (32.0-36.0); MEAN CORPUSCULAR VOLUME 81 FL (80-99); MEAN PLATELET VOLUME 7.7 FL (6.5-10.1); NEUTROPHILS % (AUTO) 59.7 % (45.0-75.0); PLATELET COUNT 188 K/UL (150-450); RED BLOOD COUNT 3.78 M/UL (4.70-6.10); RED CELL DISTRIBUTION WIDTH 24.4 % (11.6-14.8); WHITE BLOOD COUNT 8.6 K/UL (4.8-10.8)
[2016-09-24 07:36] LABS: ANION GAP 15 (5-15); CALCIUM 8.5 mg/dL (8.6-10.2); CARBON DIOXIDE 22 mEQ/L (20-30); CHLORIDE 102 mEQ/L (98-107); CREATININE 1.1 mg/dL (0.7-1.2); GLOMERULAR FILTRATION RATE > 60 mL/min (>60); HEMOLYSIS 0; POTASSIUM 5.2 mEQ/L (3.4-4.9); SODIUM 139 mEQ/L (135-145)
[2016-09-24 08:00] VITALS: BP 133/72
[2016-09-24] MEDS: Pantoprazole Inj IVP SCH ×2 (08:24→21:21)
[2016-09-24] MEDS: Rifaximin 550mg tab ORAL SCH ×2 (08:24→21:21)
[2016-09-24] MEDS: Lactulose 10gm/15ml UDC ORAL SCH ×3 (08:24→18:15)
[2016-09-24] MEDS: Morphine Sulfate 2mg/ml Inj IVP PRN ×2 (08:25→18:15)
[2016-09-24] MEDS: Octreotide Acetate 500 MCG in Sodium Chloride 499 ML IV SCH ×2 (08:44→18:41)
[2016-09-24 12:00] VITALS: BP 143/87
--- NOTE | 2016-09-24 13:29 | Pulmonology Progress Note ---
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 hepatic encephalopathy UTI/Strep hepatitis C PLAN OF CARE MS floor continue Octreotide gtt gentle IVF GI follows s/p upper endoscopy initial recommendation from GI - if rebleeds will benefit from TIPS given large gastric varices however due to ammonia trending up, not safe for now - per GI stared on Propranolol but not a good choice, given HR in 60, was dc abx, urine cx + Strep, ammonia with trend up- on lactulose, per GI added Rifaximin , ammonia still high today -127 lipase down to normal monitor HH , transfuse prn, stable antiemetic as need pain management O2 HHN prn overall poor prognosis recommend palliative care case discussed and evaluated by supervising physician Subjective Allergies: Coded Allergies: PENICILLINS (Unverified Allergy, Severe, Rash, 05/01/14) Subjective ammonia still high HH better on Octreotide drip Objective Last 24 Hour Vital Signs Date Time Temp Pulse Resp B/P Pulse Ox O2 Delivery O2 Flow Rate FiO2 09/24/16 12:00 97.7 62 20 143/87 98 Room Air 09/24/16 08:00 97.6 60 18 133/72 98 Room Air 09/24/16 04:30 98.0 64 18 134/70 98 Room Air 09/24/16 00:00 97.7 70 20 125/72 97 Room Air 09/23/16 19:00 97.9 79 20 144/77 98 Room Air 09/23/16 16:00 97.7 70 20 120/78 98 Room Air Intake and Output 09/23/16 09/24/16 19:00 07:00 Intake Total 1225 ml 920 ml Output Total 925 ml Balance 1225 ml -5 ml Intake Oral 600 ml 320 ml IV Total 625 ml 600 ml Output Urine Total 925 ml # Voids 2 4 # Bowel Movements 1 Objective General Appearance: no acute distress HEENT: normocephalic, atraumatic, anicteric, mucous membranes moist Respiratory/Chest: lungs clear, no respiratory distress, no accessory muscle use Cardiovascular: normal peripheral pulses, normal rate, no JVD Abdomen: normal bowel sounds, soft, non tender - mild distention Extremities: no edema Neurologic/Psychiatric: no motor/sensory deficits, alert, oriented x 3, responsive Musculoskeletal: normal muscle bulk Laboratory Tests 09/24/16 05:40: White Blood Count 8.6, Red Blood Count 3.78L, Hemoglobin 9.3L, Hematocrit 30.5L , Mean Corpuscular Volume 81, Mean Corpuscular Hemoglobin 24.7L, Mean Corpuscular Hemoglobin Concent 30.6L, Red Cell Distribution Width 24.4H, Platelet Count 188, Mean Platelet Volume 7.7, Neutrophils (%) (Auto) 59.7, Lymphocytes (%) (Auto) 25.6, Monocytes (%) (Auto) 10.0, Eosinophils (%) (Auto) 3.5H, Basophils (%) (Auto) 1.2, Prothrombin Time 11.6H, Prothromb Time International Ratio 1.1, Activated Partial Thromboplast Time 30, Sodium Level 139, Potassium Level 5.2H, Chloride Level 102, Carbon Dioxide Level 22, Anion Gap 15, Blood Urea Nitrogen 20, Creatinine 1.1, Estimat Glomerular Filtration Rate > 60, Glucose Level 97, Calcium Level 8.5L, Ammonia 127H Current Medications Medications (Trade) Dose Ordered Sig/Gilles Route PRN Reason Start Time Stop Time Status Last Admin Dose Admin Acetaminophen (Tylenol) 650 mg Q4H PRN ORAL fever 09/22/16 13:30 10/22/16 13:29 Al Hydroxide/Mg Hydroxide (Mylanta II) 30 ml Q6H PRN ORAL dyspepsia 09/22/16 13:30 10/22/16 13:29 Ciprofloxacin (Cipro 250mg tab) 250 mg EVERY 12 HOURS ORAL 09/23/16 09:00 09/30/16 08:59 09/24/16 08:24 Dextrose (Dextrose 50%) STAT PRN IV Hypoglycemia 09/22/16 13:30 10/22/16 13:29 Diphenhydramine HCl (Benadryl) 25 mg Q6H PRN ORAL Itching/Pruritis 09/22/16 13:30 10/22/16 13:29 Ketorolac Tromethamine (Toradol 30mg) 15 mg Q6H PRN IV moderate pain 4-6 09/22/16 13:30 09/27/16 13:29 Lactulose (Cephulac) 10 gm THREE TIMES A DAY ORAL 09/22/16 14:00 10/22/16 13:59 09/24/16 12:59 Morphine Sulfate (Morphine Sulfate) 2 mg Q4H PRN IVP severe Pain (Pain Scale 7-10) 09/22/16 13:30 09/29/16 13:29 09/24/16 08:25 Nitroglycerin (Ntg) 0.4 mg Q5M X 3 DOSES PRN SL Prn Chest Pain 09/22/16 13:30 10/22/16 13:29 Octreotide Acetate/Sodium Chloride (SandoSTATIN/NS) 500 ml @ 50 mls/hr Q10H IV 09/23/16 13:00 10/23/16 12:59 09/24/16 08:44 Ondansetron HCl (Zofran) 4 mg Q6H PRN IVP Nausea & Vomiting 09/22/16 13:30 10/22/16 13:29 Pantoprazole (Protonix) 40 mg EVERY 12 HOURS IVP 09/22/16 21:00 10/22/16 20:59 09/24/16 08:24 Polyethylene Glycol (Miralax) 17 gm HSPRN PRN ORAL Constipation 09/22/16 13:30 10/22/16 13:29 Rifaximin 550 mg 550 mg EVERY 12 HOURS ORAL 09/23/16 21:00 09/30/16 20:59 09/24/16 08:24 Temazepam (Restoril) 15 mg HSPRN PRN ORAL Insomnia 09/22/16 13:30 09/29/16 13:29 [facility] [place] Gotti NP Sep 24, 2016 13:29
--- NOTE | 2016-09-24 14:45 | Internal Med Progress Note ---
Subjective Date of Service: Sep 24, 2016 Physician Name Anmol Olsen Attending Physician Lennox Leigh MD Current Medications Medications (Trade) Dose Ordered Sig/Gilles Route PRN Reason Start Time Stop Time Status Last Admin Dose Admin Acetaminophen (Tylenol) 650 mg Q4H PRN ORAL fever 09/22/16 13:30 10/22/16 13:29 Al Hydroxide/Mg Hydroxide (Mylanta II) 30 ml Q6H PRN ORAL dyspepsia 09/22/16 13:30 10/22/16 13:29 Ciprofloxacin (Cipro 250mg tab) 250 mg EVERY 12 HOURS ORAL 09/23/16 09:00 09/30/16 08:59 09/24/16 08:24 Dextrose (Dextrose 50%) STAT PRN IV Hypoglycemia 09/22/16 13:30 10/22/16 13:29 Diphenhydramine HCl (Benadryl) 25 mg Q6H PRN ORAL Itching/Pruritis 09/22/16 13:30 10/22/16 13:29 Ketorolac Tromethamine (Toradol 30mg) 15 mg Q6H PRN IV moderate pain 4-6 09/22/16 13:30 09/27/16 13:29 Lactulose (Cephulac) 10 gm THREE TIMES A DAY ORAL 09/22/16 14:00 10/22/16 13:59 09/24/16 12:59 Morphine Sulfate (Morphine Sulfate) 2 mg Q4H PRN IVP severe Pain (Pain Scale 7-10) 09/22/16 13:30 09/29/16 13:29 09/24/16 08:25 Nitroglycerin (Ntg) 0.4 mg Q5M X 3 DOSES PRN SL Prn Chest Pain 09/22/16 13:30 10/22/16 13:29 Octreotide Acetate/Sodium Chloride (SandoSTATIN/NS) 500 ml @ 50 mls/hr Q10H IV 09/23/16 13:00 10/23/16 12:59 09/24/16 08:44 Ondansetron HCl (Zofran) 4 mg Q6H PRN IVP Nausea & Vomiting 09/22/16 13:30 10/22/16 13:29 Pantoprazole (Protonix) 40 mg EVERY 12 HOURS IVP 09/22/16 21:00 10/22/16 20:59 09/24/16 08:24 Polyethylene Glycol (Miralax) 17 gm HSPRN PRN ORAL Constipation 09/22/16 13:30 10/22/16 13:29 Rifaximin 550 mg 550 mg EVERY 12 HOURS ORAL 09/23/16 21:00 09/30/16 20:59 09/24/16 08:24 Temazepam (Restoril) 15 mg HSPRN PRN ORAL Insomnia 09/22/16 13:30 09/29/16 13:29 Allergies: Coded Allergies: PENICILLINS (Unverified Allergy, Severe, Rash, 05/01/14) ROS Limited/Unobtainable: No Constitutional: Reports: no symptoms HEENT: Reports: no symptoms Cardiovascular: Reports: no symptoms Respiratory: Reports: no symptoms Gastrointestinal/Abdominal: Reports: abdominal pain Genitourinary: Reports: no symptoms Neurologic/Psychiatric: Reports: no symptoms Subjective 71 YO M admitted with hematemesis. S/P endoscopy and colonoscopy 09/22/16. Now esophageal and gastric varices. Cover for Int Med Dr Leigh. Objective Last Vital Signs Date Time Temp Pulse Resp B/P Pulse Ox O2 Delivery O2 Flow Rate FiO2 09/24/16 12:00 97.7 62 20 143/87 98 Room Air Laboratory Tests Test 09/24/16 05:40 White Blood Count 8.6 K/UL (4.8-10.8) Red Blood Count 3.78 M/UL (4.70-6.10) L Hemoglobin 9.3 G/DL (14.2-18.0) L Hematocrit 30.5 % (42.0-52.0) L Mean Corpuscular Volume 81 FL (80-99) Mean Corpuscular Hemoglobin 24.7 PG (27.0-31.0) L Mean Corpuscular Hemoglobin Concent 30.6 G/DL (32.0-36.0) L Red Cell Distribution Width 24.4 % (11.6-14.8) H Platelet Count 188 K/UL (150-450) Mean Platelet Volume 7.7 FL (6.5-10.1) Neutrophils (%) (Auto) 59.7 % (45.0-75.0) Lymphocytes (%) (Auto) 25.6 % (20.0-45.0) Monocytes (%) (Auto) 10.0 % (1.0-10.0) Eosinophils (%) (Auto) 3.5 % (0.0-3.0) H Basophils (%) (Auto) 1.2 % (0.0-2.0) Prothrombin Time 11.6 SEC (9.30-11.50) H Prothromb Time International Ratio 1.1 (0.9-1.1) Activated Partial Thromboplast Time 30 SEC (23-33) Sodium Level 139 mEQ/L (135-145) Potassium Level 5.2 mEQ/L (3.4-4.9) H Chloride Level 102 mEQ/L (98-107) Carbon Dioxide Level 22 mEQ/L (20-30) Anion Gap 15 (5-15) Blood Urea Nitrogen 20 mg/dL (7-23) Creatinine 1.1 mg/dL (0.7-1.2) Estimat Glomerular Filtration Rate > 60 mL/min (>60) Glucose Level 97 mg/dL (74-106) Calcium Level 8.5 mg/dL (8.6-10.2) L Ammonia 127 umol/L (16-60) H Intake and Output 09/23/16 09/24/16 19:00 07:00 Intake Total 1225 ml 920 ml Output Total 925 ml Balance 1225 ml -5 ml Intake Oral 600 ml 320 ml IV Total 625 ml 600 ml Output Urine Total 925 ml # Voids 2 4 # Bowel Movements 1 Objective General Appearance: mild distress, lethargic, thin EENT: PERRL/EOMI, normal ENT inspection, TMs normal Neck: non-tender, normal alignment, supple Cardiovascular: normal peripheral pulses, normal rate, regular rhythm, no gallop/murmur, no JVD Respiratory/Chest: chest wall non-tender, lungs clear, normal breath sounds, no respiratory distress, no accessory muscle use Abdomen: decreased bowel sounds, distended, guarding, tender Extremities: normal range of motion Edema: trace edema 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 See onc note. (4) Hepatitis C (5) ETOH abuse (6) Liver masses (7) GERD (gastroesophageal reflux disease) (8) Perforated gastric ulcer (9) Perforated duodenal ulcer (10) Iron deficiency anemia (11) Abdominal pain (12) Elevated liver enzymes (13) Hematemesis Assessment & Plan: Esophageal and gastric varices. S/P endoscopy and colonoscopy 09/22/16-see GI note. Assessment/Plan Prognosis extremely poor. ANMOL OLSEN Sep 24, 2016 14:45
--- NOTE | 2016-09-24 16:19 | General Progress Note ---
Assessment/Plan Problem List: (1) Esophageal varices ICD Codes: I85.00 - Esophageal varices without bleeding SNOMED: 84295207 (2) Gastric varices ICD Codes: I86.4 - Gastric varices SNOMED: 40418401 (3) Encephalopathy ICD Codes: G93.40 - Encephalopathy, unspecified SNOMED: 36872762, 043106628 (4) Anemia ICD Codes: D64.9 - Anemia, unspecified SNOMED: 341376814 (5) Alcohol abuse ICD Codes: F10.10 - Alcohol abuse, uncomplicated SNOMED: 46831571 (6) GI (gastrointestinal bleed) ICD Codes: K92.2 - GI (gastrointestinal bleed) SNOMED: 61784699 (7) Ventral hernia ICD Codes: K43.9 - Ventral hernia without obstruction or gangrene SNOMED: 319638883 Assessment/Plan xifaxan plus lactulose octreotide not a good candidate for propanolol given HR in 60's risky for tips given elevated ammonia level over all poor prognosis if rebleeds will need TIPS Subjective ROS Limited/Unobtainable: Yes Allergies: Coded Allergies: PENICILLINS (Unverified Allergy, Severe, Rash, 05/01/14) Subjective no event over night Objective Last 24 Hour Vital Signs Date Time Temp Pulse Resp B/P Pulse Ox O2 Delivery O2 Flow Rate FiO2 09/24/16 12:00 97.7 62 20 143/87 98 Room Air 09/24/16 08:00 97.6 60 18 133/72 98 Room Air 09/24/16 04:30 98.0 64 18 134/70 98 Room Air 09/24/16 00:00 97.7 70 20 125/72 97 Room Air 09/23/16 19:00 97.9 79 20 144/77 98 Room Air Intake and Output 09/23/16 09/24/16 19:00 07:00 Intake Total 1225 ml 920 ml Output Total 925 ml Balance 1225 ml -5 ml Intake Oral 600 ml 320 ml IV Total 625 ml 600 ml Output Urine Total 925 ml # Voids 2 4 # Bowel Movements 1 Laboratory Tests 09/24/16 05:40: White Blood Count 8.6, Red Blood Count 3.78L, Hemoglobin 9.3L, Hematocrit 30.5L , Mean Corpuscular Volume 81, Mean Corpuscular Hemoglobin 24.7L, Mean Corpuscular Hemoglobin Concent 30.6L, Red Cell Distribution Width 24.4H, Platelet Count 188, Mean Platelet Volume 7.7, Neutrophils (%) (Auto) 59.7, Lymphocytes (%) (Auto) 25.6, Monocytes (%) (Auto) 10.0, Eosinophils (%) (Auto) 3.5H, Basophils (%) (Auto) 1.2, Prothrombin Time 11.6H, Prothromb Time International Ratio 1.1, Activated Partial Thromboplast Time 30, Sodium Level 139, Potassium Level 5.2H, Chloride Level 102, Carbon Dioxide Level 22, Anion Gap 15, Blood Urea Nitrogen 20, Creatinine 1.1, Estimat Glomerular Filtration Rate > 60, Glucose Level 97, Calcium Level 8.5L, Ammonia 127H Height (Feet): 5 Height (Inches): 11.00 Weight (Pounds): 161 General Appearance: alert EENT: normal ENT inspection Neck: supple Cardiovascular: normal rate Respiratory/Chest: decreased breath sounds Abdomen: normal bowel sounds, non tender, soft Extremities: non-tender CHARBEL FRANCIS Sep 24, 2016 16:19
[2016-09-24 17:00] VITALS: BP 150/87
[2016-09-24 20:00] VITALS: BP 154/93
[2016-09-25] VITALS: BP 152/86
[2016-09-25 04:00] VITALS: BP 143/80
[2016-09-25] MEDS: Octreotide Acetate 500 MCG in Sodium Chloride 499 ML IV SCH (05:01)
[2016-09-25 07:05] LABS: BASOPHILS % (AUTO) 1.2 % (0.0-2.0); LYMPHOCYTES % (AUTO) 26.5 % (20.0-45.0); MEAN CORPUSCULAR HGB CONC 30.8 G/DL (32.0-36.0); MEAN CORPUSCULAR VOLUME 81 FL (80-99); MONOCYTES % (AUTO) 11.4 % (1.0-10.0); NEUTROPHILS % (AUTO) 57.9 % (45.0-75.0); PLATELET COUNT 179 K/UL (150-450); RED BLOOD COUNT 3.73 M/UL (4.70-6.10); RED CELL DISTRIBUTION WIDTH 24.3 % (11.6-14.8)
[2016-09-25 07:32] LABS: ANION GAP 15 (5-15); CALCIUM 8.7 mg/dL (8.6-10.2); CARBON DIOXIDE 22 mEQ/L (20-30); CHLORIDE 99 mEQ/L (98-107); GLOMERULAR FILTRATION RATE > 60 mL/min (>60); HEMOLYSIS 38; POTASSIUM 5.1 mEQ/L (3.4-4.9); SODIUM 136 mEQ/L (135-145)
[2016-09-25 08:23] VITALS: BP 135/83
[2016-09-25] MEDS: Pantoprazole Inj IVP SCH (08:51)
[2016-09-25] MEDS: Rifaximin 550mg tab ORAL SCH (08:51)
[2016-09-25] MEDS: Lactulose 10gm/15ml UDC ORAL SCH ×3 (08:52→13:00)
--- NOTE | 2016-09-25 10:50 | Cardiology Report ---
APPROVED REPORT EKG Measurement Heart [id number] Normal sinus rhythm Anterior infarct, age undetermined Abnormal ECG
--- NOTE | 2016-09-25 10:56 | Internal Med Progress Note ---
Subjective Date of Service: Sep 25, 2016 Physician Name Anmol Olsen Attending Physician Lennox Leigh MD Current Medications Medications (Trade) Dose Ordered Sig/Gilles Route PRN Reason Start Time Stop Time Status Last Admin Dose Admin Acetaminophen (Tylenol) 650 mg Q4H PRN ORAL fever 09/22/16 13:30 10/22/16 13:29 Al Hydroxide/Mg Hydroxide (Mylanta II) 30 ml Q6H PRN ORAL dyspepsia 09/22/16 13:30 10/22/16 13:29 Ciprofloxacin (Cipro 250mg tab) 250 mg EVERY 12 HOURS ORAL 09/23/16 09:00 09/30/16 08:59 09/25/16 08:52 Dextrose (Dextrose 50%) STAT PRN IV Hypoglycemia 09/22/16 13:30 10/22/16 13:29 Diphenhydramine HCl (Benadryl) 25 mg Q6H PRN ORAL Itching/Pruritis 09/22/16 13:30 10/22/16 13:29 Ketorolac Tromethamine (Toradol 30mg) 15 mg Q6H PRN IV moderate pain 4-6 09/22/16 13:30 09/27/16 13:29 Lactulose (Cephulac) 10 gm THREE TIMES A DAY ORAL 09/22/16 14:00 10/22/16 13:59 09/24/16 18:15 Morphine Sulfate (Morphine Sulfate) 2 mg Q4H PRN IVP severe Pain (Pain Scale 7-10) 09/22/16 13:30 09/29/16 13:29 09/24/16 18:15 Nitroglycerin (Ntg) 0.4 mg Q5M X 3 DOSES PRN SL Prn Chest Pain 09/22/16 13:30 10/22/16 13:29 Octreotide Acetate/Sodium Chloride (SandoSTATIN/NS) 500 ml @ 50 mls/hr Q10H IV 09/23/16 13:00 10/23/16 12:59 09/25/16 05:01 Ondansetron HCl (Zofran) 4 mg Q6H PRN IVP Nausea & Vomiting 09/22/16 13:30 10/22/16 13:29 Pantoprazole (Protonix) 40 mg EVERY 12 HOURS IVP 09/22/16 21:00 10/22/16 20:59 09/25/16 08:51 Polyethylene Glycol (Miralax) 17 gm HSPRN PRN ORAL Constipation 09/22/16 13:30 10/22/16 13:29 Rifaximin 550 mg 550 mg EVERY 12 HOURS ORAL 09/23/16 21:00 09/30/16 20:59 09/25/16 08:51 Temazepam (Restoril) 15 mg HSPRN PRN ORAL Insomnia 09/22/16 13:30 09/29/16 13:29 Allergies: Coded Allergies: PENICILLINS (Unverified Allergy, Severe, Rash, 05/01/14) ROS Limited/Unobtainable: No Constitutional: Reports: no symptoms HEENT: Reports: no symptoms Cardiovascular: Reports: no symptoms Respiratory: Reports: no symptoms Gastrointestinal/Abdominal: Reports: blood in stool, other - hematemesis Genitourinary: Reports: no symptoms Neurologic/Psychiatric: Reports: no symptoms Subjective 71 YO M admitted with hematemesis. S/P endoscopy and colonoscopy 09/22/16. Now esophageal and gastric varices. Cover for Int Med Dr Leigh. C/O dark blood in stool Objective Last Vital Signs Date Time Temp Pulse Resp B/P Pulse Ox O2 Delivery O2 Flow Rate FiO2 09/25/16 08:23 98.2 68 20 135/83 99 Room Air Laboratory Tests Test 09/25/16 05:55 White Blood Count 9.0 K/UL (4.8-10.8) Red Blood Count 3.73 M/UL (4.70-6.10) L Hemoglobin 9.3 G/DL (14.2-18.0) L Hematocrit 30.3 % (42.0-52.0) L Mean Corpuscular Volume 81 FL (80-99) Mean Corpuscular Hemoglobin 25.0 PG (27.0-31.0) L Mean Corpuscular Hemoglobin Concent 30.8 G/DL (32.0-36.0) L Red Cell Distribution Width 24.3 % (11.6-14.8) H Platelet Count 179 K/UL (150-450) Mean Platelet Volume 8.0 FL (6.5-10.1) Neutrophils (%) (Auto) 57.9 % (45.0-75.0) Lymphocytes (%) (Auto) 26.5 % (20.0-45.0) Monocytes (%) (Auto) 11.4 % (1.0-10.0) H Eosinophils (%) (Auto) 3.0 % (0.0-3.0) Basophils (%) (Auto) 1.2 % (0.0-2.0) Sodium Level 136 mEQ/L (135-145) Potassium Level 5.1 mEQ/L (3.4-4.9) H Chloride Level 99 mEQ/L (98-107) Carbon Dioxide Level 22 mEQ/L (20-30) Anion Gap 15 (5-15) Blood Urea Nitrogen 23 mg/dL (7-23) Creatinine 1.0 mg/dL (0.7-1.2) Estimat Glomerular Filtration Rate > 60 mL/min (>60) Glucose Level 88 mg/dL (74-106) Calcium Level 8.7 mg/dL (8.6-10.2) Intake and Output 09/24/16 09/25/16 19:00 07:00 Intake Total 1030 ml 250 ml Output Total 800 ml Balance 1030 ml -550 ml Intake Oral 480 ml IV Total 550 ml 250 ml Output Urine Total 800 ml # Voids 2 # Bowel Movements 1 5 Objective General Appearance: mild distress, lethargic, thin EENT: PERRL/EOMI, normal ENT inspection, TMs normal Neck: non-tender, normal alignment, supple Cardiovascular: normal peripheral pulses, normal rate, regular rhythm, no gallop/murmur, no JVD Respiratory/Chest: chest wall non-tender, lungs clear, normal breath sounds, no respiratory distress, no accessory muscle use Abdomen: decreased bowel sounds, distended, guarding, tender Extremities: normal range of motion Edema: trace edema 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 See onc note. (4) Hepatitis C (5) ETOH abuse (6) Liver masses (7) GERD (gastroesophageal reflux disease) (8) Perforated gastric ulcer (9) Perforated duodenal ulcer (10) Iron deficiency anemia (11) Abdominal pain (12) Elevated liver enzymes (13) Hematemesis Assessment & Plan: Esophageal and gastric varices. S/P endoscopy and colonoscopy 09/22/16-see GI note. Status: not improved Assessment/Plan Prognosis extremely poor. Discharge planning: [facility] fac ANMOL OLSEN Sep 25, 2016 10:56
--- NOTE | 2016-09-25 11:05 | GI Progress Note ---
Assessment/Plan Problems: (1) Anemia ICD Codes: D64.9 - Anemia, unspecified SNOMED: 682102757 (2) Alcohol abuse ICD Codes: F10.10 - Alcohol abuse, uncomplicated SNOMED: 80504555 (3) Encephalopathy ICD Codes: G93.40 - Encephalopathy, unspecified SNOMED: 07818473, 841248341 (4) Esophageal varices ICD Codes: I85.00 - Esophageal varices without bleeding SNOMED: 36117527 (5) Gastric varices ICD Codes: I86.4 - Gastric varices SNOMED: 45358214 (6) Hematemesis ICD Codes: K92.0 - Hematemesis SNOMED: 3987328 (7) ETOH abuse ICD Codes: F10.10 - ETOH abuse SNOMED: 65175944 (8) Iron deficiency anemia ICD Codes: D50.9 - Iron deficiency anemia, unspecified SNOMED: 99442839 (9) Ventral hernia ICD Codes: K43.9 - Ventral hernia without obstruction or gangrene SNOMED: 241691251 (10) GI (gastrointestinal bleed) ICD Codes: K92.2 - GI (gastrointestinal bleed) SNOMED: 36112198 Status: stable, unchanged Status Narrative Discussed with Dr. Morrell. Assessment/Plan SUMMARY OF FINDINGS: 1. Esophageal varices. 2. Gastric varices. 3. Paraesophageal hernia. 4. Gastritis, status post biopsy. 5. History of duodenal ulcer with sutures in the duodenal bulb. stable H&H, transfuse prn elevated ammonia levels >> xifaxan + lactulose octreotide gtt >> will wean off ppi BID not a good candidate for propanolol given HR in 60's risky for tips given elevated ammonia level over all poor prognosis if rebleeds will need TIPS Subjective Gastrointestinal/Abdominal: Reports: abdominal pain Objective Last 24 Hour Vital Signs Date Time Temp Pulse Resp B/P Pulse Ox O2 Delivery O2 Flow Rate FiO2 09/25/16 08:23 98.2 68 20 135/83 99 Room Air 09/25/16 04:00 97.5 59 20 143/80 98 Room Air 09/25/16 00:00 97.7 63 18 152/86 97 Room Air 09/24/16 20:00 97.5 64 20 154/93 99 Room Air 09/24/16 18:45 98.1 09/24/16 17:00 98.1 67 20 150/87 100 09/24/16 12:00 97.7 62 20 143/87 98 Room Air Intake and Output 09/24/16 09/25/16 19:00 07:00 Intake Total 1030 ml 250 ml Output Total 800 ml Balance 1030 ml -550 ml Intake Oral 480 ml IV Total 550 ml 250 ml Output Urine Total 800 ml # Voids 2 # Bowel Movements 1 5 Laboratory Tests Test 09/25/16 05:55 White Blood Count 9.0 K/UL (4.8-10.8) Red Blood Count 3.73 M/UL (4.70-6.10) L Hemoglobin 9.3 G/DL (14.2-18.0) L Hematocrit 30.3 % (42.0-52.0) L Mean Corpuscular Volume 81 FL (80-99) Mean Corpuscular Hemoglobin 25.0 PG (27.0-31.0) L Mean Corpuscular Hemoglobin Concent 30.8 G/DL (32.0-36.0) L Red Cell Distribution Width 24.3 % (11.6-14.8) H Platelet Count 179 K/UL (150-450) Mean Platelet Volume 8.0 FL (6.5-10.1) Neutrophils (%) (Auto) 57.9 % (45.0-75.0) Lymphocytes (%) (Auto) 26.5 % (20.0-45.0) Monocytes (%) (Auto) 11.4 % (1.0-10.0) H Eosinophils (%) (Auto) 3.0 % (0.0-3.0) Basophils (%) (Auto) 1.2 % (0.0-2.0) Sodium Level 136 mEQ/L (135-145) Potassium Level 5.1 mEQ/L (3.4-4.9) H Chloride Level 99 mEQ/L (98-107) Carbon Dioxide Level 22 mEQ/L (20-30) Anion Gap 15 (5-15) Blood Urea Nitrogen 23 mg/dL (7-23) Creatinine 1.0 mg/dL (0.7-1.2) Estimat Glomerular Filtration Rate > 60 mL/min (>60) Glucose Level 88 mg/dL (74-106) Calcium Level 8.7 mg/dL (8.6-10.2) Height (Feet): 5 Height (Inches): 11.00 Weight (Pounds): 161 General Appearance: no apparent distress, alert Cardiovascular: normal rate Respiratory/Chest: normal breath sounds, no respiratory distress Abdominal Exam: normal bowel sounds, non tender, soft Extremities: normal range of motion Joi Granados N.P. Sep 25, 2016 11:05
[2016-09-25 11:55] VITALS: BP 136/79
[2016-09-25] MEDS ORDERED: D5 1/2NS 1000ml IV ONE (14:59)
[2016-09-25] MEDS ORDERED: Tubing IV Secondary IV ONE (14:59)
[2016-09-25] MEDS ORDERED: Octreotide Acetate 500 MCG in Sodium Chloride 499 ML IV SCH (18:00)
[2016-09-26] MEDS ORDERED: LACTULOSE20 GM/301 ORAL (10:45)
[2016-09-26] MEDS ORDERED: VITAMIN B-1100 MG ORAL (10:45)
[2016-09-26] MEDS ORDERED: ZANTAC150 MG ORAL (10:45)
--- NOTE | 2016-09-26 10:46 | Discharge Summary ---
Discharge Summary Hospital Course Date of Admission Sep 20, 2016 at 20:59 Date of Discharge Sep 25, 2016 at 15:10 Admitting Diagnosis upper gi bleed HPI Leno Mcleod is a 71 year old male who was admitted on Sep 20, 2016 at 20: 59 for Upper Gastrointestinal Bleed Hospital Course dc summary dictated #[id number] Discharge Medications New Medications: Lactulose (Lactulose*) 20 Gm/30 Ml Solution 30 ML ORAL TID, #1000 ML 0 Refills Ranitidine Hcl* (Zantac*) 150 Mg Tablet 150 MG ORAL TWICE A DAY, #60 TAB Thiamine Hcl* (Vitamin B-1*) 100 Mg Tablet 100 MG ORAL DAILY, #30 TAB 0 Refills Continued Medications: No Known Medications* (NKM - No Known Medications*) . 0 ., 0 Refills Discharge Condition Upon Discharge: grave Discharge Disposition Patient was discharged to Home with Hospice (50) Discharge Diagnoses: Discharge Instructions Discharge Instructions Special Instructions I have been assigned to complete a D/C Summary on this account. I was not involved in the patient management Yvonne Miner NP (Vanchtein) Sep 26, 2016 10:46
--- NOTE | 2016-09-26 23:38 | Discharge Summary 2 SIG ---
DATE OF ADMISSION: 09/20/2016 DATE OF DISCHARGE: 09/25/2016 REASON FOR ADMISSION: 71-year-old male with history of liver cancer and alcohol abuse presented after having hematemesis. The patient also reported chronic abdominal pain and previous abdominal surgery. The patient was afebrile. No tachycardia. Pulse oximetry on room air was 100%. No leukocytosis. Hemoglobin 9.1, hematocrit 29.9. Urinalysis with evidence of pyuria and occult blood +3. Anion gap 19, BUN 36, creatinine 1.3, ammonia 65, alkaline phosphatase 133, elevated AST of 77, and ALT within normal limits. Troponin negative, low albumin, lipase 104. EKG showed normal sinus rhythm. No ischemic changes. The patient was given IV Protonix, started on IV fluids and antibiotics for possible urinary tract infection. ADMITTING DIAGNOSES: 1. Upper gastrointestinal bleeding. 2. Alcohol abuse. 3. Pancreatitis. 4. Urinary tract infection. HOSPITAL COURSE: The patient was admitted. GI doctor was consulted. The patient undergone endoscopy with findings of esophageal varices and gastric varices as well as paraesophageal hernia and gastritis, status post biopsy. The patient was also found to have a duodenal ulcer with sutures seen in duodenal bulb. Urine culture revealed Enterococcus faecalis. The patient was on antibiotics, status post treatment. Venous duplex bilateral lower extremities revealed patent venous system on the right side and chronic recanalized thrombus in superficial femoral vein on the left leg. The patient required transfusion of one unit of packed red blood cells for hemoglobin of 8.1 and hematocrit of 26. Hemoglobin and hematocrit stayed at the baseline ; on day of discharge, hemoglobin - 9.3 and hematocrit -30.3. No leukocytosis. No fever. The patient reported prior few episodes of melena,The patient was started on octreotide drip and gentle IV fluids provided. GI closely followed. Initially, GI tried to start the patient on propranolol, however, it was not a good choice for this patient given the heart rate in the 60s and propranolol was discontinued. Ammonia was elevated. The patient was on lactulose and rifaximin per GI. The patient was counseled on abstinence from the alcohol. Antiemetic provided as needed. Pain management was provided. Supplemental oxygen and pulmonary toilet was provided as needed. No further episodes of bleeding. The patient was weaned from octreotide drip. Continue lactulose and rifaximin, ammonia continued to be elevated. Overall prognosis was poor. GI recommended to have TIPS procedure in case of rebleeding. The patient was explained overall poor prognosis and slim chances for recovery. The patient made a decision for palliative care with hospice services. DISCHARGE DIAGNOSES: 1. Upper gastrointestinal bleeding. 2. Anemia, status post blood transfusion. 3. Status post upper endoscopy with biopsy with findings of esophageal and gastric varices, paraesophageal hernia, gastritis, status post biopsy. 4. Poorly differentiated liver adenocarcinoma. 5. Alcoholic liver disease. 6. Hepatic encephalopathy. 7. Urinary tract infection/enterococcus, status post treatment. 8. Hepatitis C. DISCHARGE MEDICATIONS: See medication reconciliation list. DISCHARGE INSTRUCTIONS: The patient was discharged home with hospice services to follow for palliative care. Suresh JACKSONGlens Falls HospitalAna María, N.P. DR: RABIA JOB#: [id number] CC: LINDSAY
== END 2016-09-25 15:10 | disposition hospice, home (50) | DRG 377 ==
LOC: EDBD 19:33 → EMR 20:53 → 2W 20:59 → EDBEDREQ 22:09 → 4W 09-22 12:53
PROC: 0DB68ZX Excision of Stomach, Via Natural or Artificial Opening Endoscopic, Diagnostic (ICD-10-PCS; principal; 2016-09-20)
PROC: 30233N1 Transfusion of Nonautologous Red Blood Cells into Peripheral Vein, Percutaneous Approach (ICD-10-PCS; 2016-09-21)
DX: K92.2 Gastrointestinal hemorrhage, unspecified (principal); N17.0 Acute kidney failure with tubular necrosis; C22.9 Malignant neoplasm of liver, not specified as primary or secondary; N39.0 Urinary tract infection, site not specified; I82.512 Chronic embolism and thrombosis of left femoral vein; K72.90 Hepatic failure, unspecified without coma; F10.10 Alcohol abuse, uncomplicated; K43.9 Ventral hernia without obstruction or gangrene; B19.20 Unspecified viral hepatitis C without hepatic coma; Z51.5 Encounter for palliative care; F17.210 Nicotine dependence, cigarettes, uncomplicated; I86.4 Gastric varices; I85.00 Esophageal varices without bleeding; K26.5 Chronic or unspecified duodenal ulcer with perforation; K25.5 Chronic or unspecified gastric ulcer with perforation; D50.9 Iron deficiency anemia, unspecified; K21.9 Gastro-esophageal reflux disease without esophagitis; Z88.0 Allergy status to penicillin
CPT/HCPCS: 36415; 80048; 80053; 81003; 82140; 82150; 83690; 84484; 85025; 85610; 85730; 86850; 86900; 86901; 86920; 87070; 87081; 87086; 87181; 87205; 93005; 93970; 94003; 94150

== ENCOUNTER 2016-12-06 08:49 | Inpatient (IN) | payer MEDICARE, MEDICAID ==
[~2016-12-06] VITALS: Ht 180.3 cm; Wt 69.4 kg
[~2016-12-06 08:49] MED LIST changes: +LACTULOSE20 GM/301 ORAL; +VITAMIN B-1100 MG ORAL; +ZANTAC150 MG ORAL
[2016-12-06 12:25] VITALS: BP 120/78
[2016-12-06 13:17] LABS: EOSINOPHILS % (AUTO) 2.2 % (0.0-3.0); LYMPHOCYTES % (AUTO) 22.1 % (20.0-45.0); MEAN CORPUSCULAR HEMOGLOBIN 27.5 PG (27.0-31.0); MEAN CORPUSCULAR HGB CONC 31.7 G/DL (32.0-36.0); MEAN CORPUSCULAR VOLUME 87 FL (80-99); MEAN PLATELET VOLUME 9.6 FL (6.5-10.1); MONOCYTES % (AUTO) 13.7 % (1.0-10.0); PLATELET COUNT 128 K/UL (150-450); RED BLOOD COUNT 3.57 M/UL (4.70-6.10); RED CELL DISTRIBUTION WIDTH 20.9 % (11.6-14.8); WHITE BLOOD COUNT 10.2 K/UL (4.8-10.8)
[2016-12-06 13:31] LABS: ALBUMIN/GLOBULIN RATIO 0.4 (1.0-2.7); CALCIUM 9.3 mg/dL (8.6-10.2); CREATININE 1.6 mg/dL (0.7-1.2); GLOMERULAR FILTRATION RATE 52.2 mL/min (>60); POTASSIUM 4.5 mEQ/L (3.4-4.9); TOTAL PROTEIN 8.5 g/dL (6.6-8.7)
[2016-12-06] MEDS ORDERED: Nitroglycerin Subl 0.4mg tab (Bottle Of 25) SL PRN (15:00)
[2016-12-06] MEDS: D5 1/2NS 1,000 ML IV SCH (15:00)
[2016-12-06] MEDS ORDERED: Mylanta II UD 30ml ORAL PRN (15:00)
[2016-12-06 16:00] VITALS: BP 120/70
--- NOTE | 2016-12-06 16:17 | Consultation ---
History of Present Illness General Date patient seen: December 06, 2016 Chief Complaint: general weakness Referring physician: dr. Colindres Reason for Consultation: inpatient management Present Illness HPI 71 year old male with hx of liver cirrhosis and cancer, cachexia presented with cc of increased weakness and intractable right flank pain. pt was initially evaluated at [facility] and then transferred to [facility] for further work up. Allergies: Coded Allergies: PENICILLINS (Unverified Allergy, Severe, Rash, 05/01/14) Medication History Scheduled Lactulose (Lactulose*), 30 ML ORAL TID No Known Medications* (NKM - No Known Medications*), 0 ., (Reported) Ranitidine Hcl* (Zantac*), 150 MG ORAL TWICE A DAY Thiamine Hcl* (Vitamin B-1*), 100 MG ORAL DAILY Patient History Healthcare decision maker N Resuscitation status Advanced Directive on File Past Medical/Surgical History Past Medical/Surgical History: (1) Hepatitis C (2) Adenocarcinoma of liver (3) ETOH abuse (4) Gastric varices Review of Systems All Other Systems: negative except mentioned in HPI Physical Exam General Appearance: WD/WN Lines, tubes and drains: peripheral HEENT: normocephalic, atraumatic Neck: non-tender, normal alignment Respiratory/Chest: chest wall non-tender, lungs clear Breasts: no masses Cardiovascular/Chest: normal peripheral pulses, normal rate Abdomen: normal bowel sounds, non tender Genitourinary/Rectal: normal genital exam, normal rectal exam Extremities: normal range of motion, non-tender Skin Exam: normal pigmentation, warm/dry, rash - abdominal wall skin wound 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 II-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 grossly normal Last 24 Hour Vital Signs Date Time Temp Pulse Resp B/P Pulse Ox O2 Delivery O2 Flow Rate FiO2 12/06/16 12:25 97.0 83 18 120/78 97 Room Air Laboratory Tests Test 12/06/16 12:45 12/06/16 13:00 Sodium Level 137 mEQ/L (135-145) Potassium Level 4.5 mEQ/L (3.4-4.9) Chloride Level 99 mEQ/L (98-107) Carbon Dioxide Level 19 mEQ/L (20-30) L Anion Gap 19 (5-15) H Blood Urea Nitrogen 35 mg/dL (7-23) H Creatinine 1.6 mg/dL (0.7-1.2) H Estimat Glomerular Filtration Rate 52.2 mL/min (>60) Glucose Level 94 mg/dL (74-106) Calcium Level 9.3 mg/dL (8.6-10.2) Total Bilirubin 1.0 mg/dL (0.0-1.2) Aspartate Amino Transf (AST/SGOT) 180 U/L (5-40) H Alanine Aminotransferase (ALT/SGPT) 15 U/L (3-41) Alkaline Phosphatase 179 U/L (40-129) H Total Protein 8.5 g/dL (6.6-8.7) Albumin 2.8 g/dL (3.5-5.2) L Globulin 5.7 g/dL Albumin/Globulin Ratio 0.4 (1.0-2.7) L Amylase Level 84 U/L (10-110) White Blood Count 10.2 K/UL (4.8-10.8) Red Blood Count 3.57 M/UL (4.70-6.10) L Hemoglobin 9.8 G/DL (14.2-18.0) L Hematocrit 31.0 % (42.0-52.0) L Mean Corpuscular Volume 87 FL (80-99) Mean Corpuscular Hemoglobin 27.5 PG (27.0-31.0) Mean Corpuscular Hemoglobin Concent 31.7 G/DL (32.0-36.0) L Red Cell Distribution Width 20.9 % (11.6-14.8) H Platelet Count 128 K/UL (150-450) L Mean Platelet Volume 9.6 FL (6.5-10.1) Neutrophils (%) (Auto) 61.0 % (45.0-75.0) Lymphocytes (%) (Auto) 22.1 % (20.0-45.0) Monocytes (%) (Auto) 13.7 % (1.0-10.0) H Eosinophils (%) (Auto) 2.2 % (0.0-3.0) Basophils (%) (Auto) 1.0 % (0.0-2.0) Activated Partial Thromboplast Time 32 SEC (23-33) Lipase 16 U/L (< 60) Height (Feet): 5 Height (Inches): 11.00 Weight (Pounds): 153 Medications Current Medications Medications (Trade) Dose Ordered Sig/Gilles Route PRN Reason Start Time Stop Time Status Last Admin Dose Admin Acetaminophen (Tylenol) 650 mg Q4H PRN ORAL T>100.5 12/06/16 15:00 01/05/17 14:59 Al Hydroxide/Mg Hydroxide (Mylanta II) 30 ml Q6H PRN ORAL dyspepsia 12/06/16 15:00 01/05/17 14:59 Dextrose (Dextrose 50%) STAT PRN IV Hypoglycemia 12/06/16 15:00 01/05/17 14:59 Dextrose/Sodium Chloride (D5 0.45% NS) 1,000 ml @ 75 mls/hr [id number] IV 12/06/16 15:00 01/05/17 14:59 12/06/16 15:00 Diphenhydramine HCl (Benadryl) 25 mg Q6H PRN ORAL Itching/Pruritis 12/06/16 15:00 01/05/17 14:59 Heparin Sodium (Porcine) (Heparin 5000 units/ml) 5,000 units EVERY 12 HOURS SUBQ 12/06/16 21:00 01/05/17 20:59 Lactulose (Cephulac) 20 gm TID ORAL 12/06/16 18:00 01/05/17 17:59 Morphine Sulfate (Morphine Sulfate) 2 mg Q4H PRN IVP Severe Pain (Pain Scale 7-10) 12/06/16 15:00 12/13/16 14:59 Nitroglycerin (Ntg) 0.4 mg Q5M X 3 DOSES PRN SL Prn Chest Pain 12/06/16 15:00 01/05/17 14:59 Ondansetron HCl (Zofran) 4 mg Q6H PRN IVP Nausea & Vomiting 12/06/16 15:00 01/05/17 14:59 Pantoprazole (Protonix) 40 mg DAILY IV 12/07/16 09:00 01/06/17 08:59 Polyethylene Glycol (Miralax) 17 gm HSPRN PRN ORAL Constipation 12/06/16 21:00 01/05/17 20:59 Ranitidine HCl 150 mg 150 mg QHS ORAL 12/06/16 21:00 01/05/17 20:59 Temazepam (Restoril) 15 mg HSPRN PRN ORAL Insomnia 12/06/16 21:00 12/13/16 20:59 Assessment/Plan Problem List: (1) Intractable abdominal pain ICD Codes: R10.9 - Unspecified abdominal pain SNOMED: 86674996, 260980609 (2) ATN (acute tubular necrosis) ICD Codes: N17.0 - ATN (acute tubular necrosis) SNOMED: 04558327 (3) Nonhealing nonsurgical wound ICD Codes: T14.8 - Other injury of unspecified body region SNOMED: 85770225 (4) Adenocarcinoma of liver ICD Codes: C22.9 - Malignant neoplasm of liver, not specified as primary or secondary SNOMED: 55560011, 642071104 (5) Hepatitis C ICD Codes: B19.20 - Unspecified viral hepatitis C without hepatic coma SNOMED: 03062901 (6) ETOH abuse ICD Codes: F10.10 - ETOH abuse SNOMED: 42922373 Assessment/Plan IV fluids pain control GI and pain consult check urine consult pt/ot check electrolytes TONIE BALDERAS December 06, 2016 16:17
[2016-12-06] MEDS ORDERED: Naloxone 0.4mg/ml Inj IV PRN (16:30)
[2016-12-06] MEDS: Lactulose 20gm/30ml UDC ORAL SCH ×2 (18:00→18:01)
[2016-12-06] MEDS: Morphine Sulfate 2mg/ml Inj IVP PRN (18:01)
[2016-12-06 20:00] VITALS: BP 119/70
[2016-12-06 20:45] VITALS: BP 112/66
[2016-12-06] MEDS ORDERED: Heparin 5000 units/ml inj SUBQ SCH (21:00)
[2016-12-06] MEDS ORDERED: Miralax 17gm pkt ORAL PRN (21:00)
[2016-12-06 23:24] VITALS: BP 113/69
[2016-12-07] VITALS (23 sets, daily range): BP systolic 82–116; BP diastolic 38–81
[2016-12-07] MEDS: Morphine Sulfate 2mg/ml Inj IVP PRN (03:28)
[2016-12-07] MEDS: D5 1/2NS 1,000 ML IV SCH ×4 (04:20→17:16)
[2016-12-07 06:00] LABS: BASOPHILS % (AUTO) 1.5 % (0.0-2.0); EOSINOPHILS % (AUTO) 1.2 % (0.0-3.0); LYMPHOCYTES % (AUTO) 22.5 % (20.0-45.0); MEAN CORPUSCULAR HEMOGLOBIN 28.1 PG (27.0-31.0); MEAN CORPUSCULAR HGB CONC 32.3 G/DL (32.0-36.0); MEAN CORPUSCULAR VOLUME 87 FL (80-99); MEAN PLATELET VOLUME 8.8 FL (6.5-10.1); MONOCYTES % (AUTO) 12.7 % (1.0-10.0); PLATELET COUNT 114 K/UL (150-450); RED BLOOD COUNT 2.89 M/UL (4.70-6.10); RED CELL DISTRIBUTION WIDTH 20.8 % (11.6-14.8); WHITE BLOOD COUNT 9.9 K/UL (4.8-10.8)
[2016-12-07 06:17] LABS: INR 1.3 (0.9-1.1); PROTHROMBIN TIME 13.4 SEC (9.30-11.50)
[2016-12-07 06:29] LABS: ALBUMIN/GLOBULIN RATIO 0.4 (1.0-2.7); CREATININE 1.7 mg/dL (0.7-1.2); GLOMERULAR FILTRATION RATE 48.7 mL/min (>60); POTASSIUM 4.4 mEQ/L (3.4-4.9); TOTAL PROTEIN 7.3 g/dL (6.6-8.7)
[2016-12-07] MEDS: Lactulose 20gm/30ml UDC ORAL SCH ×3 (08:15→18:00)
--- NOTE | 2016-12-07 08:26 | Consultation ---
History of Present Illness General Date patient seen: December 07, 2016 Present Illness Allergies: Coded Allergies: PENICILLINS (Unverified Allergy, Severe, Rash, 05/01/14) Medication History Scheduled Lactulose (Lactulose*), 30 ML ORAL TID No Known Medications* (NKM - No Known Medications*), 0 ., (Reported) Ranitidine Hcl* (Zantac*), 150 MG ORAL TWICE A DAY Thiamine Hcl* (Vitamin B-1*), 100 MG ORAL DAILY Patient History Healthcare decision maker N Resuscitation status Advanced Directive on File Physical Exam Last 24 Hour Vital Signs Date Time Temp Pulse Resp B/P Pulse Ox O2 Delivery O2 Flow Rate FiO2 12/07/16 06:06 97.4 104 19 98 Room Air 12/07/16 05:00 97.4 109 20 93/57 100 Room Air 12/07/16 04:00 97.2 107 20 108/65 98 Room Air 12/07/16 04:00 117 12/07/16 03:00 97.0 120 19 100/64 98 Room Air 12/07/16 02:11 97.4 105 19 103/62 98 Room Air 12/07/16 01:03 102 18 112/68 99 Room Air 12/07/16 00:30 97.5 108 20 108/81 99 Room Air 12/07/16 00:30 108 12/06/16 23:24 97.7 79 19 113/69 98 Room Air 12/06/16 20:45 97.5 77 20 112/66 96 Room Air 12/06/16 20:00 97.4 82 19 119/70 97 Room Air 12/06/16 18:31 97.0 12/06/16 16:00 97.0 93 18 120/70 97 Room Air 12/06/16 12:25 97.0 83 18 120/78 97 Room Air Intake and Output 12/06/16 12/07/16 19:00 07:00 Intake Total 300 ml 750 ml Output Total 300 ml 1800 ml Balance 0 ml -1050 ml Intake Oral 0 ml IV Total 300 ml 750 ml Output Urine Total 300 ml 600 ml Emesis 1200 ml Laboratory Tests Test 12/06/16 12:45 12/06/16 13:00 12/07/16 04:40 Sodium Level 137 mEQ/L (135-145) 137 mEQ/L (135-145) Potassium Level 4.5 mEQ/L (3.4-4.9) 4.4 mEQ/L (3.4-4.9) Chloride Level 99 mEQ/L (98-107) 97 mEQ/L (98-107) L Carbon Dioxide Level 19 mEQ/L (20-30) L 20 mEQ/L (20-30) Anion Gap 19 (5-15) H 20 (5-15) H Blood Urea Nitrogen 35 mg/dL (7-23) H 48 mg/dL (7-23) H Creatinine 1.6 mg/dL (0.7-1.2) H 1.7 mg/dL (0.7-1.2) H Estimat Glomerular Filtration Rate 52.2 mL/min (>60) 48.7 mL/min (>60) Glucose Level 94 mg/dL (74-106) 128 mg/dL (74-106) H Calcium Level 9.3 mg/dL (8.6-10.2) 9.0 mg/dL (8.6-10.2) Total Bilirubin 1.0 mg/dL (0.0-1.2) 0.7 mg/dL (0.0-1.2) Aspartate Amino Transf (AST/SGOT) 180 U/L (5-40) H 162 U/L (5-40) H Alanine Aminotransferase (ALT/SGPT) 15 U/L (3-41) 14 U/L (3-41) Alkaline Phosphatase 179 U/L (40-129) H 159 U/L (40-129) H Total Protein 8.5 g/dL (6.6-8.7) 7.3 g/dL (6.6-8.7) Albumin 2.8 g/dL (3.5-5.2) L 2.4 g/dL (3.5-5.2) L Globulin 5.7 g/dL 4.9 g/dL Albumin/Globulin Ratio 0.4 (1.0-2.7) L 0.4 (1.0-2.7) L Amylase Level 84 U/L (10-110) White Blood Count 10.2 K/UL (4.8-10.8) 9.9 K/UL (4.8-10.8) Red Blood Count 3.57 M/UL (4.70-6.10) L 2.89 M/UL (4.70-6.10) L Hemoglobin 9.8 G/DL (14.2-18.0) L 8.1 G/DL (14.2-18.0) L Hematocrit 31.0 % (42.0-52.0) L 25.2 % (42.0-52.0) L Mean Corpuscular Volume 87 FL (80-99) 87 FL (80-99) Mean Corpuscular Hemoglobin 27.5 PG (27.0-31.0) 28.1 PG (27.0-31.0) Mean Corpuscular Hemoglobin Concent 31.7 G/DL (32.0-36.0) L 32.3 G/DL (32.0-36.0) Red Cell Distribution Width 20.9 % (11.6-14.8) H 20.8 % (11.6-14.8) H Platelet Count 128 K/UL (150-450) L 114 K/UL (150-450) L Mean Platelet Volume 9.6 FL (6.5-10.1) 8.8 FL (6.5-10.1) Neutrophils (%) (Auto) 61.0 % (45.0-75.0) 62.0 % (45.0-75.0) Lymphocytes (%) (Auto) 22.1 % (20.0-45.0) 22.5 % (20.0-45.0) Monocytes (%) (Auto) 13.7 % (1.0-10.0) H 12.7 % (1.0-10.0) H Eosinophils (%) (Auto) 2.2 % (0.0-3.0) 1.2 % (0.0-3.0) Basophils (%) (Auto) 1.0 % (0.0-2.0) 1.5 % (0.0-2.0) Activated Partial Thromboplast Time 32 SEC (23-33) Lipase 16 U/L (< 60) Prothrombin Time 13.4 SEC (9.30-11.50) H Prothromb Time International Ratio 1.3 (0.9-1.1) H Ammonia 185 umol/L (16-60) H Height (Feet): 5 Height (Inches): 11.00 Weight (Pounds): 153 Medications Current Medications Medications (Trade) Dose Ordered Sig/Gilles Route PRN Reason Start Time Stop Time Status Last Admin Dose Admin Acetaminophen (Tylenol) 650 mg Q4H PRN ORAL T>100.5 12/06/16 15:00 01/05/17 14:59 Al Hydroxide/Mg Hydroxide (Mylanta II) 30 ml Q6H PRN ORAL dyspepsia 12/06/16 15:00 01/05/17 14:59 Dextrose (Dextrose 50%) STAT PRN IV Hypoglycemia 12/06/16 15:00 01/05/17 14:59 Dextrose/Sodium Chloride (D5 0.45% NS) 1,000 ml @ 75 mls/hr [id number] IV 12/06/16 15:00 01/05/17 14:59 12/07/16 08:14 Diphenhydramine HCl (Benadryl) 25 mg Q6H PRN ORAL Itching/Pruritis 12/06/16 15:00 01/05/17 14:59 Lactulose (Cephulac) 20 gm TID ORAL 12/06/16 18:00 01/05/17 17:59 Levofloxacin (Levaquin) 50 ml @ 50 mls/hr Q24H IVPB 12/07/16 18:00 12/14/16 17:59 Morphine Sulfate (Morphine Sulfate) 2 mg Q4H PRN IVP Severe Pain (Pain Scale 7-10) 12/06/16 15:00 12/13/16 14:59 12/07/16 03:28 Nitroglycerin (Ntg) 0.4 mg Q5M X 3 DOSES PRN SL Prn Chest Pain 12/06/16 15:00 01/05/17 14:59 Ondansetron HCl (Zofran) 4 mg Q6H PRN IVP Nausea & Vomiting 12/06/16 15:00 01/05/17 14:59 12/07/16 03:32 Pantoprazole 40 mg 40 mg DAILY IV 12/07/16 09:00 01/06/17 08:59 12/07/16 08:15 Polyethylene Glycol (Miralax) 17 gm HSPRN PRN ORAL Constipation 12/06/16 21:00 01/05/17 20:59 Ranitidine HCl 150 mg 150 mg QHS ORAL 12/06/16 21:00 01/05/17 20:59 Temazepam (Restoril) 15 mg HSPRN PRN ORAL Insomnia 12/06/16 21:00 12/13/16 20:59 Assessment/Plan Assessment/Plan (1) Intractable Abdominal pain (2) Liver cancer Seen dictated WILNER AMOR December 07, 2016 08:26
[2016-12-07] MEDS ORDERED: Pantoprazole Inj IV SCH (09:00)
[2016-12-07] MEDS ORDERED: Pantoprazole Inj IVP SCH (09:00)
[2016-12-07] MEDS ORDERED: Morphine Sulfate 2mg/ml Inj IV PRN (09:00)
[2016-12-07] MEDS ORDERED: Hydromorphone 0.5mg/0.5ml inj IVP PRN ×2 (09:15→12:00)
[2016-12-07] MEDS ORDERED: HYDROmorphone 1mg/ml Carpuject IVP PRN (09:15)
[2016-12-07] MEDS ORDERED: Metoclopramide 10mg/2ml Inj IVP PRN (10:30)
--- NOTE | 2016-12-07 10:39 | Pulmonolgy Critical Care Note ---
Critical Care - Asmt/Plan Problems: (1) Hypovolemic shock (2) Hematemesis (3) ATN (acute tubular necrosis) (4) UTI (lower urinary tract infection) (5) Adenocarcinoma of liver (6) Hepatitis C (7) Coagulopathy (8) Nonhealing nonsurgical wound (9) Intractable abdominal pain Respiratory: monitor respiratory rate, adjust FIO2, CXR Cardiac: continue pressors, continue to monitor HR/BP Renal: F/U I&O, keep IV fluid, check electrolytes, other - increase IV fluids, nephro evaluation Infectious Disease: check cultures Gastrointestinal: hold feedings, other - gi for endoscopy Endocrine: monitor blood sugar Hematologic: monitor H/H, transfuse if hgb<8.5, other - vitamin KI Neurologic: PRN Ativan, PRN Morphine, keep patient comfortable Notes Reviewed: ID, GI Discussed with: nurses, consultants, case specialistfront office manager - Objective Last 24 Hour Vital Signs Date Time Temp Pulse Resp B/P Pulse Ox O2 Delivery O2 Flow Rate FiO2 12/07/16 10:00 111 12 91/58 100 Room Air 12/07/16 09:00 111 20 89/49 100 Room Air 12/07/16 08:00 97.6 114 17 103/68 100 Room Air 12/07/16 08:00 111 12/07/16 07:00 110 15 96/63 99 Room Air 12/07/16 06:06 97.4 104 19 98 Room Air 12/07/16 05:00 97.4 109 20 93/57 100 Room Air 12/07/16 04:00 97.2 107 20 108/65 98 Room Air 12/07/16 04:00 117 12/07/16 03:00 97.0 120 19 100/64 98 Room Air 12/07/16 02:11 97.4 105 19 103/62 98 Room Air 12/07/16 01:03 102 18 112/68 99 Room Air 12/07/16 00:30 97.5 108 20 108/81 99 Room Air 12/07/16 00:30 108 12/06/16 23:24 97.7 79 19 113/69 98 Room Air 12/06/16 20:45 97.5 77 20 112/66 96 Room Air 12/06/16 20:00 97.4 82 19 119/70 97 Room Air 12/06/16 18:31 97.0 5/3/17 16:00 97.0 93 18 120/70 97 Room Air 12/06/16 12:25 97.0 83 18 120/78 97 Room Air Status: awake Condition: improving HEENT: atraumatic Neck: full ROM Lungs: clear Heart: HR/BP stable, HR/BP unstable, regular Abdomen: active bowel sounds, feeding tube Extremities: no C/C/E, edema Decubiti: location Critical Care - Subjective ROS Limited/Unobtainable: No ICU Day: 1 Interval Events: pt had an episode of hematemesis and hypotension, transferred to ICU for further workup and monitoring. Fluids: 1/2 NS 75 cc.hour I&O: Intake and Output 12/06/16 12/07/16 19:00 07:00 Intake Total 300 ml 750 ml Output Total 300 ml 1900 ml Balance 0 ml -1150 ml Intake Oral 0 ml IV Total 300 ml 750 ml Output Urine Total 300 ml 600 ml Emesis 1300 ml Labs: Laboratory Tests Test 12/06/16 12:45 12/06/16 13:00 12/07/16 04:40 Sodium Level 137 mEQ/L (135-145) 137 mEQ/L (135-145) Potassium Level 4.5 mEQ/L (3.4-4.9) 4.4 mEQ/L (3.4-4.9) Chloride Level 99 mEQ/L (98-107) 97 mEQ/L (98-107) L Carbon Dioxide Level 19 mEQ/L (20-30) L 20 mEQ/L (20-30) Anion Gap 19 (5-15) H 20 (5-15) H Blood Urea Nitrogen 35 mg/dL (7-23) H 48 mg/dL (7-23) H Creatinine 1.6 mg/dL (0.7-1.2) H 1.7 mg/dL (0.7-1.2) H Estimat Glomerular Filtration Rate 52.2 mL/min (>60) 48.7 mL/min (>60) Glucose Level 94 mg/dL (74-106) 128 mg/dL (74-106) H Calcium Level 9.3 mg/dL (8.6-10.2) 9.0 mg/dL (8.6-10.2) Total Bilirubin 1.0 mg/dL (0.0-1.2) 0.7 mg/dL (0.0-1.2) Aspartate Amino Transf (AST/SGOT) 180 U/L (5-40) H 162 U/L (5-40) H Alanine Aminotransferase (ALT/SGPT) 15 U/L (3-41) 14 U/L (3-41) Alkaline Phosphatase 179 U/L (40-129) H 159 U/L (40-129) H Total Protein 8.5 g/dL (6.6-8.7) 7.3 g/dL (6.6-8.7) Albumin 2.8 g/dL (3.5-5.2) L 2.4 g/dL (3.5-5.2) L Globulin 5.7 g/dL 4.9 g/dL Albumin/Globulin Ratio 0.4 (1.0-2.7) L 0.4 (1.0-2.7) L Amylase Level 84 U/L (10-110) White Blood Count 10.2 K/UL (4.8-10.8) 9.9 K/UL (4.8-10.8) Red Blood Count 3.57 M/UL (4.70-6.10) L 2.89 M/UL (4.70-6.10) L Hemoglobin 9.8 G/DL (14.2-18.0) L 8.1 G/DL (14.2-18.0) L Hematocrit 31.0 % (42.0-52.0) L 25.2 % (42.0-52.0) L Mean Corpuscular Volume 87 FL (80-99) 87 FL (80-99) Mean Corpuscular Hemoglobin 27.5 PG (27.0-31.0) 28.1 PG (27.0-31.0) Mean Corpuscular Hemoglobin Concent 31.7 G/DL (32.0-36.0) L 32.3 G/DL (32.0-36.0) Red Cell Distribution Width 20.9 % (11.6-14.8) H 20.8 % (11.6-14.8) H Platelet Count 128 K/UL (150-450) L 114 K/UL (150-450) L Mean Platelet Volume 9.6 FL (6.5-10.1) 8.8 FL (6.5-10.1) Neutrophils (%) (Auto) 61.0 % (45.0-75.0) 62.0 % (45.0-75.0) Lymphocytes (%) (Auto) 22.1 % (20.0-45.0) 22.5 % (20.0-45.0) Monocytes (%) (Auto) 13.7 % (1.0-10.0) H 12.7 % (1.0-10.0) H Eosinophils (%) (Auto) 2.2 % (0.0-3.0) 1.2 % (0.0-3.0) Basophils (%) (Auto) 1.0 % (0.0-2.0) 1.5 % (0.0-2.0) Activated Partial Thromboplast Time 32 SEC (23-33) Lipase 16 U/L (< 60) Prothrombin Time 13.4 SEC (9.30-11.50) H Prothromb Time International Ratio 1.3 (0.9-1.1) H Ammonia 185 umol/L (16-60) H TONIE BALDERAS December 07, 2016 10:39
[2016-12-07] MEDS ORDERED: Morphine Sulfate 4mg/ml Inj IVP PRN (11:00)
--- NOTE | 2016-12-07 11:12 | Diagnostic Imaging Report ---
Indications: Abdominal pain, elevated renal and hepatic function tests Technique: Transabdominal real-time grayscale and duplex Doppler imaging of the upper abdomen and retroperitoneum was performed. Findings: Comparison: 04/26/2016. Liver normal size nodular surface contour, diffusely coarsened parenchymal echogenicity. Enlarged caudate lobe. 3.3 cm circumscribed, multilobulated, heterogeneously echogenic mass in left lobe unchanged. Gallbladder demonstrates moderate diffuse mural thickening, small polypoid echogenic non-shadowing mural based focus.. Sonographic Rendon sign not reported.. Bile ducts normal caliber. Common bile duct 5 mm. Pancreas head and body unremarkable; tail obscured. Spleen not enlarged, no focal lesions.. Right kidney 8.2 cm, mild diffuse cortical atrophy, normal cortical echogenicity, no focal lesions or hydronephrosis.. Left kidney 11.5 cm, unremarkable. Abdominal aorta, intrahepatic portion of inferior vena cava patent, normal caliber. Duplex Doppler imaging demonstrates antegrade flow in splenic, portal, hepatic veins. No ascites. IMPRESSION: Liver findings compatible with chronic hepatocellular disease/cirrhosis Stable 3.3 cm mass in left hepatic lobe, previously biopsied, compatible with metastatic adenocarcinoma per pathology report. Hepatocellular carcinoma must also be considered. Gallbladder wall thickening likely secondary to adjacent liver disease. Small intraluminal polyp. No stones. Right renal atrophy suggests long-standing renal artery stenosis versus sequela of other chronic insult. Correlate clinically.
--- NOTE | 2016-12-07 11:16 | Consultation ---
Consult Note Consult Note ID Dic# [id number] AMERICA GALICIA M.D. December 07, 2016 11:16
--- NOTE | 2016-12-07 11:24 | Pre-Procedure Note/Attestation ---
Pre-Procedure Note/Attestation Complete Prior to Procedure Planned Procedure: not applicable Procedure Narrative: egd Indications for Procedure Pre-Operative Diagnosis: gib Attestation I attest that I discussed the nature of the procedure; its benefits; risks and complications; and alternatives (and the risks and benefits of such alternatives ), prior to the procedure, with the patient (or the patient's legal brand representative). I attest that, if there was a reasonable possibility of needing a blood transfusion, the patient (or the patient's legal brand representative) was given the [facility] standardized written summary, pursuant to the [place] Jonn Blood Safety Act ([place] Health and Safety Code # 1645, as amended). I attest that I re-evaluated the patient just prior to the surgery and that there has been no change in the patient's H&P, except as documented below: CHARBEL FRANCIS December 07, 2016 11:24
[2016-12-07] MEDS ORDERED: cefTRIAXone 1 GM in D5W 55 ML IVPB SCH (11:30)
[2016-12-07] MEDS ORDERED: Metoclopramide 10mg/2ml Inj IVP SCH (11:30)
--- NOTE | 2016-12-07 11:40 | Consultation ---
History of Present Illness General Date patient seen: December 07, 2016 Reason for Consultation: esophageal/gastric varices Present Illness HPI 71 M known to surgery service. 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 Here for right flank pain and weakness. Has ulcer on abdominal wall from old wound hear large midline hernia that is slow healing. When speaking with patient he is not very cooperative with encounter and states that he is in pain and wants medication. He states that he has had pain for a while now. Does not describe pain in detail just states its in his right flank. when asked about her hernia and wound states that hernia present for years and wound has been slowly healing for a while now. does not recall how he obtained wound. no current n/v/f/c. Allergies: Coded Allergies: PENICILLINS (Unverified Allergy, Severe, Rash, 05/01/14) Medication History Scheduled Lactulose (Lactulose*), 30 ML ORAL TID No Known Medications* (NKM - No Known Medications*), 0 ., (Reported) Ranitidine Hcl* (Zantac*), 150 MG ORAL TWICE A DAY Thiamine Hcl* (Vitamin B-1*), 100 MG ORAL DAILY Patient History Limited by: medical condition History Provided By: Patient Healthcare decision maker N Resuscitation status Advanced Directive on File Past Medical/Surgical History Past Medical/Surgical History: (1) Gout (2) Elevated CEA (3) Pancreatitis (4) Ventral hernia (5) Ventral hernia (6) GI (gastrointestinal bleed) (7) Iron deficiency anemia (8) GERD (gastroesophageal reflux disease) (9) Abdominal pain (10) Liver masses (11) Elevated liver enzymes (12) Esophageal varices (13) Encephalopathy (14) Encounter for wound re-check (15) Gastric varices (16) ETOH abuse (17) Hepatitis C (18) Adenocarcinoma of liver (19) Nonhealing nonsurgical wound (20) Intractable abdominal pain (21) Hypovolemic shock (22) Hematemesis (23) Coagulopathy (24) Sepsis (25) Hematuria (26) Hematuria (27) Alcohol abuse (28) Perforated gastric ulcer (29) Hyponatremia (30) Metabolic acidosis (31) Peritonitis, acute generalized (32) Hypokalemia (33) ATN (acute tubular necrosis) (34) Anemia (35) UTI (lower urinary tract infection) (36) Perforated duodenal ulcer (37) Hyponatremia (38) Hypocalcemia Review of Systems All Other Systems: negative except mentioned in HPI Physical Exam General Appearance: no apparent distress, alert, cachetic Lines, tubes and drains: peripheral HEENT: normocephalic Neck: normal inspection Respiratory/Chest: lungs clear, no respiratory distress, no accessory muscle use Cardiovascular/Chest: normal peripheral pulses Abdomen: normal bowel sounds, non tender, soft, hernia, hepatomegaly Extremities: normal range of motion Skin Exam: normal pigmentation Neurologic: alert, responsive Last 24 Hour Vital Signs Date Time Temp Pulse Resp B/P Pulse Ox O2 Delivery O2 Flow Rate FiO2 12/07/16 11:00 115 15 82/38 100 Room Air 12/07/16 10:00 111 12 91/58 100 Room Air 12/07/16 09:00 111 20 89/49 100 Room Air 12/07/16 08:00 97.6 114 17 103/68 100 Room Air 12/07/16 08:00 111 12/07/16 07:00 110 15 96/63 99 Room Air 12/07/16 06:06 97.4 104 19 98 Room Air 12/07/16 05:00 97.4 109 20 93/57 100 Room Air 12/07/16 04:00 97.2 107 20 108/65 98 Room Air 12/07/16 04:00 117 12/07/16 03:00 97.0 120 19 100/64 98 Room Air 12/07/16 02:11 97.4 105 19 103/62 98 Room Air 12/07/16 01:03 102 18 112/68 99 Room Air 12/07/16 00:30 97.5 108 20 108/81 99 Room Air 12/07/16 00:30 108 12/06/16 23:24 97.7 79 19 113/69 98 Room Air 12/06/16 20:45 97.5 77 20 112/66 96 Room Air 12/06/16 20:00 97.4 82 19 119/70 97 Room Air 12/06/16 18:31 97.0 12/06/16 16:00 97.0 93 18 120/70 97 Room Air 12/06/16 12:25 97.0 83 18 120/78 97 Room Air Intake and Output 12/06/16 12/07/16 19:00 07:00 Intake Total 300 ml 750 ml Output Total 300 ml 1900 ml Balance 0 ml -1150 ml Intake Oral 0 ml IV Total 300 ml 750 ml Output Urine Total 300 ml 600 ml Emesis 1300 ml Laboratory Tests Test 12/06/16 12:45 12/06/16 13:00 12/07/16 04:40 Sodium Level 137 mEQ/L (135-145) 137 mEQ/L (135-145) Potassium Level 4.5 mEQ/L (3.4-4.9) 4.4 mEQ/L (3.4-4.9) Chloride Level 99 mEQ/L (98-107) 97 mEQ/L (98-107) L Carbon Dioxide Level 19 mEQ/L (20-30) L 20 mEQ/L (20-30) Anion Gap 19 (5-15) H 20 (5-15) H Blood Urea Nitrogen 35 mg/dL (7-23) H 48 mg/dL (7-23) H Creatinine 1.6 mg/dL (0.7-1.2) H 1.7 mg/dL (0.7-1.2) H Estimat Glomerular Filtration Rate 52.2 mL/min (>60) 48.7 mL/min (>60) Glucose Level 94 mg/dL (74-106) 128 mg/dL (74-106) H Calcium Level 9.3 mg/dL (8.6-10.2) 9.0 mg/dL (8.6-10.2) Total Bilirubin 1.0 mg/dL (0.0-1.2) 0.7 mg/dL (0.0-1.2) Aspartate Amino Transf (AST/SGOT) 180 U/L (5-40) H 162 U/L (5-40) H Alanine Aminotransferase (ALT/SGPT) 15 U/L (3-41) 14 U/L (3-41) Alkaline Phosphatase 179 U/L (40-129) H 159 U/L (40-129) H Total Protein 8.5 g/dL (6.6-8.7) 7.3 g/dL (6.6-8.7) Albumin 2.8 g/dL (3.5-5.2) L 2.4 g/dL (3.5-5.2) L Globulin 5.7 g/dL 4.9 g/dL Albumin/Globulin Ratio 0.4 (1.0-2.7) L 0.4 (1.0-2.7) L Amylase Level 84 U/L (10-110) White Blood Count 10.2 K/UL (4.8-10.8) 9.9 K/UL (4.8-10.8) Red Blood Count 3.57 M/UL (4.70-6.10) L 2.89 M/UL (4.70-6.10) L Hemoglobin 9.8 G/DL (14.2-18.0) L 8.1 G/DL (14.2-18.0) L Hematocrit 31.0 % (42.0-52.0) L 25.2 % (42.0-52.0) L Mean Corpuscular Volume 87 FL (80-99) 87 FL (80-99) Mean Corpuscular Hemoglobin 27.5 PG (27.0-31.0) 28.1 PG (27.0-31.0) Mean Corpuscular Hemoglobin Concent 31.7 G/DL (32.0-36.0) L 32.3 G/DL (32.0-36.0) Red Cell Distribution Width 20.9 % (11.6-14.8) H 20.8 % (11.6-14.8) H Platelet Count 128 K/UL (150-450) L 114 K/UL (150-450) L Mean Platelet Volume 9.6 FL (6.5-10.1) 8.8 FL (6.5-10.1) Neutrophils (%) (Auto) 61.0 % (45.0-75.0) 62.0 % (45.0-75.0) Lymphocytes (%) (Auto) 22.1 % (20.0-45.0) 22.5 % (20.0-45.0) Monocytes (%) (Auto) 13.7 % (1.0-10.0) H 12.7 % (1.0-10.0) H Eosinophils (%) (Auto) 2.2 % (0.0-3.0) 1.2 % (0.0-3.0) Basophils (%) (Auto) 1.0 % (0.0-2.0) 1.5 % (0.0-2.0) Activated Partial Thromboplast Time 32 SEC (23-33) Lipase 16 U/L (< 60) Prothrombin Time 13.4 SEC (9.30-11.50) H Prothromb Time International Ratio 1.3 (0.9-1.1) H Ammonia 185 umol/L (16-60) H Height (Feet): 5 Height (Inches): 11.00 Weight (Pounds): 153 Medications Current Medications Medications (Trade) Dose Ordered Sig/Gilles Route PRN Reason Start Time Stop Time Status Last Admin Dose Admin Acetaminophen (Tylenol) 650 mg Q4H PRN ORAL T>100.5 12/06/16 15:00 01/05/17 14:59 Al Hydroxide/Mg Hydroxide (Mylanta II) 30 ml Q6H PRN ORAL dyspepsia 12/06/16 15:00 01/05/17 14:59 Ceftriaxone Sodium/Dextrose (Rocephin/D5W) 55 ml @ 110 mls/hr Q24H IVPB 12/07/16 11:30 12/14/16 11:29 UNV Dextrose (Dextrose 50%) STAT PRN IV Hypoglycemia 12/06/16 15:00 01/05/17 14:59 Dextrose/Sodium Chloride (D5 0.45% NS) 1,000 ml @ 150 mls/hr Q6H40M IV 12/07/16 11:00 01/06/17 10:59 Diphenhydramine HCl (Benadryl) 25 mg Q6H PRN ORAL Itching/Pruritis 12/06/16 15:00 01/05/17 14:59 Hydromorphone HCl (Dilaudid) 0.5 mg EVERY 3 HOURS PRN IVP Moderate Pain (Pain Scale 4-6) 12/07/16 12:00 12/14/16 11:59 Hydromorphone HCl 1 mg 1 mg Q4H PRN IVP Severe Pain (Pain Scale 7-10) 12/07/16 09:15 12/14/16 09:14 Lactulose (Cephulac) 20 gm TID ORAL 12/06/16 18:00 01/05/17 17:59 Levofloxacin (Levaquin) 50 ml @ 50 mls/hr Q24H IVPB 12/07/16 18:00 12/14/16 17:59 Metoclopramide HCl 10 mg 10 mg EVERY 3 HOURS PRN IVP N/V (prior to Dilaudid) 12/07/16 10:30 01/06/17 10:29 Metoclopramide HCl 10 mg 10 mg Q8H IVP 12/07/16 11:30 01/06/17 11:29 UNV Metronidazole (Flagyl) 100 ml @ 100 mls/hr Q8HR IVPB 12/07/16 14:00 12/14/16 13:59 Nitroglycerin (Ntg) 0.4 mg Q5M X 3 DOSES PRN SL Prn Chest Pain 12/06/16 15:00 01/05/17 14:59 Octreotide Acetate 50 mcg 50 mcg ONCE ONCE IVP 12/07/16 11:30 12/07/16 11:31 UNV Octreotide Acetate/Sodium Chloride (SandoSTATIN/NS) 500 ml @ 50 mls/hr Q10H IV 12/07/16 11:30 01/06/17 11:29 UNV Ondansetron HCl 4 mg 4 mg EVERY 3 HOURS PRN IVP N/V (before dilaudid) 12/07/16 12:00 01/06/17 11:59 Pantoprazole (Protonix) 40 mg EVERY 12 HOURS IVP 12/07/16 21:00 01/06/17 20:59 UNV Pantoprazole 40 mg 40 mg DAILY IV 12/07/16 09:00 01/06/17 08:59 12/07/16 08:15 Phytonadione/ Dextrose (Vitamin K/D5W) 56 ml @ 112 mls/hr ONCE ONCE IVPB 12/07/16 12:00 12/07/16 12:29 Polyethylene Glycol (Miralax) 17 gm HSPRN PRN ORAL Constipation 12/06/16 21:00 01/05/17 20:59 Ranitidine HCl (Zantac) 150 mg QHS ORAL 12/06/16 21:00 01/05/17 20:59 Temazepam (Restoril) 15 mg HSPRN PRN ORAL Insomnia 12/06/16 21:00 12/13/16 20:59 Assessment/Plan Problem List: (1) Gastric varices Assessment & Plan: No acute surgical intervention planned. If decompensates will need tertiary center for TIPS or bypass. If acute bleeding please call us but prognosis would be guarded as emergent surgery for acute bleeding in his case would have very high morbidity/mortality. ICD Codes: I86.4 - Gastric varices SNOMED: [id number] (2) Ventral hernia Assessment & Plan: no acute intervention necessary large asymptomatic reducible ventral hernia slow healing wound on superficial skin. keep wound clean with dressings. no signs of infection from wound. ICD Codes: K43.9 - Ventral hernia SNOMED: [id number] Status: stable Eric Parikh December 07, 2016 11:40
--- NOTE | 2016-12-07 11:51 | Diagnostic Imaging Report ---
Indications: Dyspnea Technique: Portable AP chest Findings: Comparison: 09/12/2016 Cardiac silhouette remains enlarged. Pulmonary vasculature remains within normal limits. Lungs and pleura remain clear. Mild calcification and elongation of the thoracic aorta, inferior mediastinal mass compatible with hiatal hernia are unchanged.. IMPRESSION: No evidence of acute disease, unchanged Stable chronic changes as described
[2016-12-07] MEDS ORDERED: Phytonadione 10 MG in D5W 55 ML IVPB ONE (12:00)
[2016-12-07] MEDS ORDERED: SandoSTATIN 50mcg Inj IVP ONE (12:30)
[2016-12-07 12:34] LABS: ALANINE AMINOTRANSFERASE 14 U/L (3-41); ALBUMIN/GLOBULIN RATIO 0.5 (1.0-2.7); ANION GAP 21 (5-15); ASPARTATE AMINO TRANSFERASE 171 U/L (5-40); CALCIUM 9.3 mg/dL (8.6-10.2); CARBON DIOXIDE 19 mEQ/L (20-30); CHLORIDE 98 mEQ/L (98-107); CREATININE 2.1 mg/dL (0.7-1.2); GLOMERULAR FILTRATION RATE 38.2 mL/min (>60); HEMOLYSIS 0; MAGNESIUM 1.8 mg/dL (1.7-2.5); PHOSPHORUS 4.9 mg/dL (2.5-4.8); POTASSIUM 4.6 mEQ/L (3.4-4.9); SODIUM 138 mEQ/L (135-145); TOTAL PROTEIN 7.7 g/dL (6.6-8.7); URIC ACID 15.2 mg/dL (3.0-7.5)
--- NOTE | 2016-12-07 12:43 | Anethesia Preoperative Eval ---
Anesthesia Pre-op PMH/ROS General Date of Evaluation: December 07, 2016 Time of Evaluation: 12:20 Anesthesiologist: chapo ASA Score: ASA 4 Mallampati Score Class I : Soft palate, uvula, fauces, pillars visible Class II: Soft palate, uvula, fauces visible Class III: Soft palate, base of uvula visible Class IV: Only hard plate visible Mallampati Classification: Class III Surgeon: pauly Diagnosis: gi bleed Surgical Procedure: egd Social History: alcohol use Family History: no anesthesia problems Allergies: Coded Allergies: PENICILLINS (Unverified Allergy, Severe, Rash, 05/01/14) Medications: see eMAR Past Medical History Cardiovascular: Reports: other - hypovolemic shock /hypotension Pulmonary: Denies: COPD, JORGE, asthma, other Gastrointestinal/Genitourinary: Reports: GERD, other - malnutrition Neurologic/Psychiatric: Denies: CVA, TIA, dementia, depression/anxiety, other Endocrine: Denies: DM, hypothyroidism, other, steroids HEENT: Denies: [place] (L), [place] (R), cataract (L), cataract (R), glaucoma, other Hematology/Immune: Reports: anemia PMH Narrative: (1) Gout (2) Elevated CEA (3) Pancreatitis (4) Ventral hernia (5) Ventral hernia (6) GI (gastrointestinal bleed) (7) Iron deficiency anemia (8) GERD (gastroesophageal reflux disease) (9) Abdominal pain (10) Liver masses (11) Elevated liver enzymes (12) Esophageal varices (13) Encephalopathy (14) Encounter for wound re-check (15) Gastric varices (16) ETOH abuse (17) Hepatitis C (18) Adenocarcinoma of liver (19) Nonhealing nonsurgical wound (20) Intractable abdominal pain (21) Hypovolemic shock (22) Hematemesis (23) Coagulopathy (24) Sepsis (25) Hematuria (26) Hematuria (27) Alcohol abuse (28) Perforated gastric ulcer (29) Hyponatremia (30) Metabolic acidosis (31) Peritonitis, acute generalized (32) Hypokalemia (33) ATN (acute tubular necrosis) (34) Anemia (35) UTI (lower urinary tract infection) (36) Perforated duodenal ulcer (37) Hyponatremia (38) Hypocalcemia PSxH Narrative: ventral hernia Anesthesia Pre-op Phys. Exam Physician Exam Last Vital Signs Date Time Temp Pulse Resp B/P Pulse Ox O2 Delivery O2 Flow Rate FiO2 12/07/16 11:00 115 15 82/38 100 Room Air 12/07/16 08:00 97.6 Constitutional: other - distress/nausea Neurologic: CN 2-12 intact Cardiovascular: other - st Respiratory: CTA Gastrointestinal: other - large ventral hernia Airway Exam Mallampati Classification 3 Mallampati Score: Class III MO: limited Teeth: missing Dentures: no lower, no upper Anesthesia Pre-op A/P Labs Hematology Test 12/06/16 13:00 12/07/16 04:40 White Blood Count 10.2 K/UL (4.8-10.8) 9.9 K/UL (4.8-10.8) Red Blood Count 3.57 M/UL (4.70-6.10) L 2.89 M/UL (4.70-6.10) L Hemoglobin 9.8 G/DL (14.2-18.0) L 8.1 G/DL (14.2-18.0) L Hematocrit 31.0 % (42.0-52.0) L 25.2 % (42.0-52.0) L Mean Corpuscular Volume 87 FL (80-99) 87 FL (80-99) Mean Corpuscular Hemoglobin 27.5 PG (27.0-31.0) 28.1 PG (27.0-31.0) Mean Corpuscular Hemoglobin Concent 31.7 G/DL (32.0-36.0) L 32.3 G/DL (32.0-36.0) Red Cell Distribution Width 20.9 % (11.6-14.8) H 20.8 % (11.6-14.8) H Platelet Count 128 K/UL (150-450) L 114 K/UL (150-450) L Mean Platelet Volume 9.6 FL (6.5-10.1) 8.8 FL (6.5-10.1) Neutrophils (%) (Auto) 61.0 % (45.0-75.0) 62.0 % (45.0-75.0) Lymphocytes (%) (Auto) 22.1 % (20.0-45.0) 22.5 % (20.0-45.0) Monocytes (%) (Auto) 13.7 % (1.0-10.0) H 12.7 % (1.0-10.0) H Eosinophils (%) (Auto) 2.2 % (0.0-3.0) 1.2 % (0.0-3.0) Basophils (%) (Auto) 1.0 % (0.0-2.0) 1.5 % (0.0-2.0) Coagulation Test 12/06/16 13:00 12/07/16 04:40 Activated Partial Thromboplast Time 32 SEC (23-33) Prothrombin Time 13.4 SEC (9.30-11.50) H Prothromb Time International Ratio 1.3 (0.9-1.1) H Chemistry Test 12/06/16 12:45 12/06/16 13:00 12/07/16 04:40 12/07/16 11:10 Sodium Level 137 mEQ/L (135-145) 137 mEQ/L (135-145) 138 mEQ/L (135-145) Potassium Level 4.5 mEQ/L (3.4-4.9) 4.4 mEQ/L (3.4-4.9) 4.6 mEQ/L (3.4-4.9) Chloride Level 99 mEQ/L (98-107) 97 mEQ/L (98-107) L 98 mEQ/L (98-107) Carbon Dioxide Level 19 mEQ/L (20-30) L 20 mEQ/L (20-30) 19 mEQ/L (20-30) L Anion Gap 19 (5-15) H 20 (5-15) H 21 (5-15) H Blood Urea Nitrogen 35 mg/dL (7-23) H 48 mg/dL (7-23) H 51 mg/dL (7-23) H Creatinine 1.6 mg/dL (0.7-1.2) H 1.7 mg/dL (0.7-1.2) H 2.1 mg/dL (0.7-1.2) H Estimat Glomerular Filtration Rate 52.2 mL/min (>60) 48.7 mL/min (>60) 38.2 mL/min (>60) Glucose Level 94 mg/dL (74-106) 128 mg/dL (74-106) H 110 mg/dL (74-106) H Calcium Level 9.3 mg/dL (8.6-10.2) 9.0 mg/dL (8.6-10.2) 9.3 mg/dL (8.6-10.2) Total Bilirubin 1.0 mg/dL (0.0-1.2) 0.7 mg/dL (0.0-1.2) 0.7 mg/dL (0.0-1.2) Aspartate Amino Transf (AST/SGOT) 180 U/L (5-40) H 162 U/L (5-40) H 171 U/L (5-40) H Alanine Aminotransferase (ALT/SGPT) 15 U/L (3-41) 14 U/L (3-41) 14 U/L (3-41) Alkaline Phosphatase 179 U/L (40-129) H 159 U/L (40-129) H 179 U/L (40-129) H Total Protein 8.5 g/dL (6.6-8.7) 7.3 g/dL (6.6-8.7) 7.7 g/dL (6.6-8.7) Albumin 2.8 g/dL (3.5-5.2) L 2.4 g/dL (3.5-5.2) L 2.6 g/dL (3.5-5.2) L Globulin 5.7 g/dL 4.9 g/dL 5.1 g/dL Albumin/Globulin Ratio 0.4 (1.0-2.7) L 0.4 (1.0-2.7) L 0.5 (1.0-2.7) L Amylase Level 84 U/L (10-110) Lipase 16 U/L (< 60) Ammonia 185 umol/L (16-60) H Plasma/Serum Osmolality Pending Uric Acid 15.2 mg/dL (3.0-7.5) H Phosphorus Level 4.9 mg/dL (2.5-4.8) H Magnesium Level 1.8 mg/dL (1.7-2.5) Total Creatine Kinase 48 U/L (38-174) Thyroid Stimulating Hormone (TSH) Pending Free Thyroxine Pending Free Triiodothyronine Pending Cortisol Pending Studies Pre-op Studies: EKG - st Risk Assessment & Plan Plan: mac Status Change Before Surgery: No Pre-Antibiotics Drug: none SIERRA QUIJANO CRNA December 07, 2016 12:43
--- NOTE | 2016-12-07 12:44 | Endoscopy Procedure Note ---
Endoscopy Procedure Note Indication for Procedure: gib Procedures Performed: EGD Operative Findings/Diagnosis: esop and gastric varices Specimen: none Pt Tolerated Procedure Well: Yes Estimated Blood Loss: none Anesthesiologist: du Anesthesia: MAC Implant(s) used?: No 50 yrs or older w/o bx or poly: Not Applicable 10yrs. F/U not recommended: Not Applicable CHARBEL FRANCIS December 07, 2016 12:44
--- NOTE | 2016-12-07 12:45 | Immediate Post-Op Evaluation ---
Immediate Post-Op Evalulation Immediate Post-Op Evalulation Procedure: egd Date of Evaluation: December 07, 2016 Time of Evaluation: 12:35 IV Fluids: 200 Blood Pressure Systolic: 88 Blood Pressure Diastolic: 60 Pulse Rate: 112 Respiratory Rate: 20 O2 Sat by Pulse Oximetry: 99 Nausea: Yes - preexisting Vomiting: No Complications none Patient Status: patent Hydration Status: other - st- see nurses notes Drug: none SIERRA QUIJANO CRNA December 07, 2016 12:45
--- NOTE | 2016-12-07 12:48 | 48 Hour Post Anesthesia Eval ---
Post Anesthesia Evaluation Procedure: egd Date of Evaluation: December 07, 2016 Time of Evaluation: 12:47 Blood Pressure Systolic: 88 0: 55 Pulse Rate: 112 Respiratory Rate: 14 O2 Sat by Pulse Oximetry: 98 Airway: patent Nausea: No Vomiting: No Hydration Status: other Mental Status/LOC: patient returned to baseline Post-Anesthesia Complications: none Follow-up care needed: N/A SIERRA QUIJANO CRNA December 07, 2016 12:48
[2016-12-07] MEDS: Octreotide Acetate 500 MCG in Sodium Chloride 499 ML IV SCH (13:06)
[2016-12-07] MEDS ORDERED: Sodium Bicarbonate 8.4% 50ml Inj IV ONE (14:30)
[2016-12-07] MEDS ORDERED: Heparin 2000 units/Ns 1000ml IV ONE (14:30)
[2016-12-07] MEDS ORDERED: Lidocaine 1% Plain 30 ml INJ ONE (14:30)
--- NOTE | 2016-12-07 15:17 | Consultation ---
Consult Note Consult Note asked to eval for acute renal failure- 71 M. 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 Here for right flank pain and weakness. Has ulcer on abdominal wall from old wound hear large midline hernia that is slow healing. When speaking with patient he is not very cooperative with encounter and states that he is in pain and wants medication. He states that he has had pain for a while now. Does not describe pain in detail just states its in his right flank. when asked about her hernia and wound states that hernia present for years and wound has been slowly healing for a while now. does not recall how he obtained wound. no current n/v/f/c. Allergies: PENICILLINS (Unverified Allergy, Severe, Rash, 05/01/14) Past Medical/Surgical History: (1) Gout (2) Elevated CEA (3) Pancreatitis (4) Ventral hernia (5) (6) GI (gastrointestinal bleed) (7) Iron deficiency anemia (8) GERD (gastroesophageal reflux disease) (9) Abdominal pain (10) Liver masses (11) Elevated liver enzymes (12) Esophageal varices (13) Encephalopathy (14) Encounter for wound re-check (15) Gastric varices (16) ETOH abuse (17) Hepatitis C (18) Adenocarcinoma of liver (19) Nonhealing nonsurgical wound (20) Intractable abdominal pain (21) Hypovolemic shock (22) Hematemesis (23) Coagulopathy (24) Sepsis (25) Hematuria (26) Hematuria (27) Alcohol abuse (28) Perforated gastric ulcer (29) Hyponatremia (30) Metabolic acidosis (31) Peritonitis, acute generalized (32) Hypokalemia (33) ATN (acute tubular necrosis) (34) Anemia (35) UTI (lower urinary tract infection) (36) Perforated duodenal ulcer (37) Hyponatremia (38) Hypocalcemia Now- In ICU HypoTensive Tachycardic Assessment/Plan acute renal failure due to shock upper GI bleeding anemia esophageal varices gastric varices paraesophageal hernia gx of duodenal ulcer with sutures in duodenal bulb poorly differentiated liver adenocarcinoma alcoholic liver disease hepatic encephalopathy UTI/Strep hepatitis C Plan: Hemodynamic support Per GI monitor renal parameters- vibha Poor prognosis EDWINA BUSTAMANTE December 07, 2016 15:17
--- NOTE | 2016-12-07 16:23 | Diagnostic Imaging Report ---
Indications: Long-term central IV access required for multiple medications. Technique: The procedure indications, risks, and alternatives were explained to the patient's family who understands and gives consent to proceed. Procedure was performed at bedside. Strict aseptic technique was utilized, including hand washing, use of hat and mask, use of sterile gown and gloves, sterile ultrasound gel and probe cover, prepping of right arm skin with 2% chlorhexidine solution, and application of full-body sterile barrier over this area. Skin and subcutaneous soft tissues were infiltrated with 1% lidocaine and sodium bicarbonate. A small dermatotomy was made, through which the patent, adequate size right basilic vein was punctured percutaneously under direct sonographic guidance with a 21-gauge needle. Exchange was made over a 0.018 inch guidewire for a 5 Slov[place] peel-away sheath. A Bard Power-PICC 5 [place] dual lumen central venous catheter was cut to 40 cm, then advanced through the sheath over the guidewire. Guidewire and sheath were removed. Both catheter ports were aspirated, then flushed with heparinized saline. Catheter was secured the skin with adhesive dressing. Patient tolerated procedure well without immediate complications. Followup chest radiograph performed.. Findings: Comparison: Chest radiograph 12/07/2016 at 0736 Both ports aspirate and flush freely. Chest radiograph demonstrates tip of the central venous catheter in the region of the lower aspect of the superior vena cava. No other change. IMPRESSION: Bedside placement of peripherally inserted central venous catheter via right basilic vein, working well, adequate position, may be used..
[2016-12-07] MEDS: metroNIDAZOLE 500mg 100 ML IVPB SCH ×2 (17:13→21:44)
[2016-12-07] MEDS ORDERED: Levofloxacin 250mg/D5W 50ml IVPB SCH (18:00)
--- NOTE | 2016-12-07 19:12 | History & Physical ---
History and Physical History & Physicial Dictated for Int Med-Dr Leigh no. [id number]. STEPHENIE OLSEN December 07, 2016 19:12
--- NOTE | 2016-12-07 20:48 | Procedure Note ---
DATE OF PROCEDURE: 12/07/2016 SURGEON: Arie Morrell M.D. PROCEDURE: Upper endoscopy. ANESTHESIA: Per OUTREACH CONSULTANT, Christine Tarrillion. INSTRUMENT: Olympus adult flexible upper endoscope. INDICATION: Upper gastrointestinal bleeding. REASON FOR PROCEDURE: The procedure, risks, benefits, and possible consequences, including hemorrhage, aspiration, perforation and infection, and alternative treatments, were explained to the patient/legal guardian by Dr. Arie Morrell and the patient/legal guardian understood and accepted these risks. DESCRIPTION OF PROCEDURE: After informed consent was obtained and the patient was adequately sedated, Olympus upper endoscope was advanced from the mouth into the esophagus. The patient had evidence of blood clot sitting in the distal esophagus and also in the proximal stomach. The patient had a large paraesophageal hernia. We were able to maneuver the scope beyond the clot into the antrum of the stomach, pylorus, and in to the duodenum. Most of the clot was sitting in the GE junction on the retroflexion of the stomach. Given the prior history of gastric varices, most probably the patient was bleeding from gastric varices. Again, this procedure was limited given there was clot sitting in the GE junction and distal esophagus. It was hard to say where exactly is his bleeding. At this time, the scope was retrieved and procedure was terminated. SUMMARY OF FINDINGS: 1. Limited exam given blood clot sitting in the proximal stomach and distal esophagus. 2. The patient had prior history of esophageal and gastric varices. 3. Paraesophageal hernia. RECOMMENDATIONS: We will start octreotide drip and start Protonix. Monitor hemoglobin and hematocrit. Transfuse as needed. Correct coagulopathy. Dose of vitamin K. The patient would need to be transferred for TIPS procedure if rebleeds. I want to thank, Dr. Koch, for this kind referral. Arie Morrell M.D. DR: PEREZ JOB#: [id number] CC: Radha Koch M.D.; Fax#: [phone]
[2016-12-07] MEDS: Pantoprazole Inj IVP SCH (21:36)
--- NOTE | 2016-12-07 21:59 | Consultation ---
DATE OF CONSULTATION: 12/07/2016 PAIN MANAGEMENT CONSULTATION CONSULTING PHYSICIAN: Dov Ren M.D. REFERRING PHYSICIAN: Radha Koch M.D. PHYSICIAN STORAGE FACILITY HOUSEKEEPER: Charley Rendon CHIEF COMPLAINT: Abdominal pain. HISTORY OF PRESENT ILLNESS: This is a 71-year-old male, who is being seen in the ICU of [facility] for initial comprehensive pain management consultation. The patient is a poor historian, does report that he has abdominal pain for many years due to liver cirrhosis, found to have liver cancer, and ventral hernia, now having nausea and vomiting, and blood in the vomit, awaiting to be seen by family development specialist, going for colonoscopy and endoscopy. At this time, the patient is in severe pain. We were consulted so that the patient would have adequate pain control while here in the hospital. PAST MEDICAL HISTORY: Gout, pancreatitis, ventral hernia, gastrointestinal bleed, GERD, encephalopathy, perforated gastric ulcer, peritonitis, anemia, UTI. SOCIAL HISTORY: Denies smoking, tobacco, does have a history of alcohol abuse. ALLERGIES: Penicillin. MEDICATIONS: Lactulose, ranitidine, . REVIEW OF SYSTEMS: Denies rash, fever, chills, sweating, dizziness, drowsiness, blurred vision, complaining of abdominal pain with nausea and vomiting, and blood in the vomit. PHYSICAL EXAMINATION: GENERAL: Alert, awake. VITAL SIGNS: Blood pressure 93/57, heart rate 109, oxygen saturation 100%, respiratory rate 20, and temperature is 97.4 degrees Fahrenheit. Height is 5 feet and 11 inches and weight 153 pounds. HEENT: PERRLA. NECK: Range of motion is full in all directions. No tenderness to the paracervical muscles. No adenopathy. LUNGS: Decreased breath sounds bilaterally. CARDIOVASCULAR: S1 and S2 regular. ABDOMEN: Distended with large ventral hernia noted. Tenderness to palpation. BACK: Range of motion is decreased in flexion and extension with tenderness to paraspinal muscles. No tenderness on trapezius or rhomboid muscles. EXTREMITIES: Upper extremity range of motion is full in all directions. Motor is intact. No cyanosis. No clubbing. No edema. Sensory is intact. There is no adenopathy. Lower extremity range of motion is decreased due to the patient's condition. Motor is reduced. No cyanosis. No clubbing. Sensory is intact. Reflexes are unobtainable. No adenopathy. ASSESSMENT AND PLAN: This is a 71-year-old male with intractable abdominal pain, liver cancer. The patient patient will be discontinued off the morphine, started on Dilaudid 0.5 mg to 1 mg IV every 4 hours as needed for moderate to severe pain and parameters will be set to hold narcotic for over-sedation or systolic blood pressure below 90 or diastolic blood pressure below 60. The patient was discussed with Dr. Ren and Dr. Ren concurred. We will follow the patient. Thank you very much for the courtesy of this consultation. Dov Ren M.D. MO Rendon DR: Goran JOB#: [id number] CC:
[2016-12-08] VITALS (25 sets, daily range): BP systolic 40–121; BP diastolic 3–74
--- NOTE | 2016-12-08 00:58 | History and Physical Report ---
DATE OF ADMISSION: 12/07/2016 CHIEF COMPLAINT: The patient is a 71-year-old male with a history of poorly differentiated adenocarcinoma of the liver presents with chief complaint of right flank pain and weakness. HISTORY OF PRESENT ILLNESS: The patient was admitted to [facility] in 09/2016. Please see history and physical and discharge summary dictated at that time. The patient was admitted for upper gastrointestinal hemorrhage. The patient presented to [place] with complaint of right flank pain. The patient also has weakness. The patient is admitted to the intensive care unit for probable upper gastrointestinal hemorrhage. REVIEW OF SYSTEMS: Unable to assess, secondary to the patient's mental status. PAST MEDICAL HISTORY: Significant for: 1. History of upper gastrointestinal hemorrhage as above. 2. History of alcohol abuse. 3. Poorly differentiated adenocarcinoma of the liver. PAST SURGICAL HISTORY: The patient denies. CURRENT MEDICATIONS: 1. Lactulose 30 mL p.o. daily. 2. Zantac 150 mg one tablet p.o. twice daily. 3. Vitamin B1 100 mg one tablet p.o. daily. ALLERGIES: Penicillin. SOCIAL HISTORY: The patient is single and is retired. The patient admits to tobacco use of one-half pack per day. The patient admits to previous alcohol use of 2 drinks daily. The patient denies drugs abuse. PHYSICAL EXAMINATION: VITAL SIGNS: Temperature 97 degrees, respirations 19, pulse tachycardic at 120, and blood pressure 100/64. GENERAL: The patient is thin-appearing, frail, -[place] male, who is in moderate pain. HEENT: Eyes, pupils are equal and responsive to light and accommodation. Extraocular movements are intact. NECK: Supple. No lymphadenopathy. CHEST: Few wheezes bilaterally. Otherwise, clear to auscultation without wheezes or rales. CARDIOVASCULAR: Tachycardic and regular rhythm. S1 and S2 are normal without murmurs, rubs, or gallops. ABDOMEN: Soft, distended with positive bowel sounds. No evidence of hepatosplenomegaly currently. No guarding. EXTREMITIES: Negative for clubbing, cyanosis, or edema. RECTAL/GENITAL: Refused. NEUROLOGICAL: Cranial nerves II through XII are grossly intact without focal deficits. Motor strength is 5/5. Deep tendon reflexes are 2+. LABORATORY STUDIES: WBC 10.3, hemoglobin 9.8, hematocrit 31.0, and platelets 120,000. Sodium 137, potassium 4.5, chloride 99, CO2 19, BUN 35, creatinine 1.6, and glucose 94. Liver function tests elevated with AST of 180, alkaline phosphatase of 179. An abdominal ultrasound revealed hepatocellular cirrhosis and 3.3 cm mass in the left hepatic lobe. A chest x-ray was reported as no acute disease. ASSESSMENT: This is a 71-year-old -[place] male. 1. Right flank pain. 2. Weakness. 3. Esophageal varices. 4. Gastric varices. 5. Adenocarcinoma of the liver. 6. Ventral hernia. 7. Left hepatic liver mass. TREATMENT: 1. Esophageal varices/gastric varices, a Gastroenterology consultation with Dr. Arie Morrell. We will follow recommendations of Gastroenterology. The patient is scheduled for colonoscopy and endoscopy today on 12/07/2016. 2. Adenocarcinoma of the liver. This is probably end-stage. The patient does not qualify for chemotherapy. Oncology consultation has been obtained with Dr. Kwon. 3. Ventral hernia. A Surgery consultation has been obtained with . We will follow recommendation of General Surgery. 4. Liver masses secondary to adenocarcinoma as above. Anmol Colindres M.D. DR: Mary Carmen JOB#: [id number] CC:
[2016-12-08] MEDS: Octreotide Acetate 500 MCG in Sodium Chloride 499 ML IV SCH ×3 (00:59→10:33)
[2016-12-08] MEDS: D5 1/2NS 1,000 ML IV SCH ×2 (01:00→05:57)
[2016-12-08 05:13] LABS: FREE TRIIODOTHYRONINE 1.8 pg/mL (2.0-4.4)
[2016-12-08 05:14] LABS: MEAN CORPUSCULAR HEMOGLOBIN 28.5 PG (27.0-31.0); MEAN CORPUSCULAR HGB CONC 29.5 G/DL (32.0-36.0); MEAN CORPUSCULAR VOLUME 97 FL (80-99); MEAN PLATELET VOLUME 7.3 FL (6.5-10.1); PLATELET COUNT 99 K/UL (150-450); RED BLOOD COUNT 1.92 M/UL (4.70-6.10); RED CELL DISTRIBUTION WIDTH 23.3 % (11.6-14.8)
[2016-12-08 05:24] LABS: WHITE BLOOD COUNT 24.3 K/UL (4.8-10.8)
[2016-12-08 05:32] LABS: ALANINE AMINOTRANSFERASE 105 U/L (3-41); ALBUMIN/GLOBULIN RATIO 0.4 (1.0-2.7); ANION GAP 37 (5-15); ASPARTATE AMINO TRANSFERASE 513 U/L (5-40); CALCIUM 8.9 mg/dL (8.6-10.2); CHLORIDE 102 mEQ/L (98-107); CREATININE 3.3 mg/dL (0.7-1.2); GLOMERULAR FILTRATION RATE 22.7 mL/min (>60); HEMOLYSIS 3; MAGNESIUM 2.6 mg/dL (1.7-2.5); SODIUM 145 mEQ/L (135-145); TOTAL PROTEIN 5.5 g/dL (6.6-8.7)
--- NOTE | 2016-12-08 05:32 | Emergency Room Report ---
History of Present Illness General Source: Patient Present Illness Allergies: Coded Allergies: PENICILLINS (Unverified Allergy, Severe, Rash, 05/01/14) Nursing Documentation-[facility] Past Medical History: No History, Except For Hx Cardiac Problems: No Hx Hypertension: No Hx Cancer: Yes Hx Gastrointestinal Problems: Yes Hx Neurological Problems: No Physical Exam Vital Signs Date Time Temp Pulse Resp B/P Pulse Ox O2 Delivery O2 Flow Rate FiO2 12/06/16 12:25 97.0 83 18 120/78 97 Room Air 12/08/16 05:23 100 Procedures Intubation Intubation : Consent: Emergent Time of Intubation: 05:15 Intubation Method: orotracheal Tube Size (cm): 8.0 Medications: Etomidate, Rocuronium Breath Sounds after Intubation: equal Intubation Complications: no complications Post Intubation Xray: Yes Patient Tolerated: Well Complications: None Medical Decision Making Last Vital Signs Date Time Temp Pulse Resp B/P Pulse Ox O2 Delivery O2 Flow Rate FiO2 12/08/16 05:27 73 16 Room Air 100 12/08/16 01:00 96/50 100 12/08/16 00:00 98.0 Referrals: Lennox Leigh MD (PCP) Zhao Leslie December 08, 2016 05:32
[2016-12-08 05:34] LABS: POTASSIUM 6.1 mEQ/L (3.4-4.9)
[2016-12-08 05:35] LABS: CARBON DIOXIDE < 6 mEQ/L (20-30)
[2016-12-08] MEDS: metroNIDAZOLE 500mg 100 ML IVPB SCH (05:56)
[2016-12-08 06:01] LABS: CRP QUANT 1.2 mg/dL (< 0.5); URIC ACID 15.5 mg/dL (3.0-7.5)
[2016-12-08 07:11] LABS: INR 1.8 (0.9-1.1); PROTHROMBIN TIME 18.7 SEC (9.30-11.50)
[2016-12-08] MEDS ORDERED: Levophed 4mg/4mL Inj IV ONE (07:14)
[2016-12-08 08:14] LABS: CORTISOL LC 20.7 ug/dL (.)
[2016-12-08] MEDS: Lactulose 20gm/30ml UDC ORAL SCH ×2 (08:36→09:00)
[2016-12-08] MEDS: Pantoprazole Inj IVP SCH (08:37)
[2016-12-08] MEDS ORDERED: Zemuron 50mg/5ml Inj IV ONE (09:55)
[2016-12-08] MEDS ORDERED: Etomidate 40mg/20ml Inj IV ONE (09:55)
[2016-12-08] MEDS ORDERED: Succinylcholine 20mg/ml 10ml vial ONE (09:55)
--- NOTE | 2016-12-08 10:16 | General Progress Note ---
Assessment/Plan Assessment/Plan (1) Intractable Abdominal pain (2) Liver cancer The patient patient will be continued on Dilaudid with parameter set to hold narcotic for over-sedation or systolic blood pressure below 90 or diastolic blood pressure below 60. The patient was discussed with Dr. Ren and Dr. Ren concurred. Subjective Date patient seen: December 08, 2016 Time patient seen: 10:00 - am ROS Limited/Unobtainable: Yes Allergies: Coded Allergies: PENICILLINS (Unverified Allergy, Severe, Rash, 05/01/14) Subjective Patient is intubated on ventilator due to bradycardia and hypotension unresponsive at this time. On Levophed and receiving blood transfusion. D/w nurse about patient and parameters which are set. Objective Last 24 Hour Vital Signs Date Time Temp Pulse Resp B/P Pulse Ox O2 Delivery O2 Flow Rate FiO2 12/08/16 09:30 72 16 82/28 100 Mechanical Ventilator 100 12/08/16 09:15 71 16 96/33 100 Mechanical Ventilator 100 12/08/16 09:07 71 16 100 12/08/16 09:00 73 16 106/3 100 Mechanical Ventilator 100 12/08/16 08:45 71 16 106/30 100 Mechanical Ventilator 100 12/08/16 08:30 72 16 121/38 100 Mechanical Ventilator 100 12/08/16 08:15 72 16 110/74 100 Mechanical Ventilator 100 12/08/16 08:00 73 12/08/16 08:00 66 18 118/74 100 Room Air 12/08/16 07:45 71 15 119/40 100 Mechanical Ventilator 100 12/08/16 07:30 71 18 99/11 100 Mechanical Ventilator 100 12/08/16 07:19 67 16 100 12/08/16 07:15 68 18 74/49 100 Mechanical Ventilator 100 12/08/16 07:00 46/15 12/08/16 07:00 100 12/08/16 07:00 98.5 45 18 46/15 100 Mechanical Ventilator 100 12/08/16 06:00 66 18 118/74 100 Room Air 12/08/16 05:30 62 18 118/74 100 Room Air 12/08/16 05:27 73 16 Room Air 100 12/08/16 05:23 73 16 100 12/08/16 05:00 56 18 55/23 100 Room Air 12/08/16 04:30 72 18 78/40 100 Room Air 12/08/16 04:00 54 18 46/20 100 Room Air 12/08/16 04:00 60 12/08/16 03:00 56 18 89/45 100 Room Air 12/08/16 02:00 86 18 96/50 100 Room Air 12/08/16 01:00 110 18 96/50 100 Room Air 12/08/16 00:00 99 12/08/16 00:00 98.0 99 20 92/21 100 Room Air 12/07/16 23:00 110 18 96/50 100 Room Air 12/07/16 22:00 12/07/16 22:00 110 18 110/56 100 Room Air 12/07/16 21:00 110 18 116/69 100 Room Air 12/07/16 20:00 107 16 112/76 100 Room Air 12/07/16 20:00 112 12/07/16 19:00 112 16 96/56 100 Room Air 12/07/16 18:00 106 16 83/46 100 Room Air 12/07/16 17:00 107 22 95/62 100 Room Air 12/07/16 16:00 97.7 108 18 82/53 100 Room Air 12/07/16 16:00 116 12/07/16 15:00 100 21 99/66 100 Room Air 12/07/16 14:00 100 20 98/60 100 Room Air 12/07/16 13:00 112 23 96/62 100 Room Air 12/07/16 12:48 112 14 98 12/07/16 12:45 112 20 99 12/07/16 12:00 113 12/07/16 12:00 97.8 114 13 97/62 100 Room Air 12/07/16 11:00 115 15 82/38 100 Room Air Intake and Output 12/07/16 12/08/16 19:00 07:00 Intake Total 1251 ml 1600 ml Output Total 150 ml 225 ml Balance 1101 ml 1375 ml IV Total 1231 ml 1600 ml Other 20 ml Output Urine Total 0 ml 225 ml Emesis 150 ml Laboratory Tests 12/07/16 11:10: Sodium Level 138, Potassium Level 4.6, Chloride Level 98, Carbon Dioxide Level 19L, Anion Gap 21H, Blood Urea Nitrogen 51H, Creatinine 2.1H, Estimat Glomerular Filtration Rate 38.2, Glucose Level 110H, Plasma/Serum Osmolality [ Pending], Uric Acid 15.2H, Calcium Level 9.3, Phosphorus Level 4.9H, Magnesium Level 1.8, Total Bilirubin 0.7, Aspartate Amino Transf (AST/SGOT) 171H, Alanine Aminotransferase (ALT/SGPT) 14, Alkaline Phosphatase 179H, Total Creatine Kinase 48, Total Protein 7.7, Albumin 2.6L, Globulin 5.1, Albumin/Globulin Ratio 0.5L, Thyroid Stimulating Hormone (TSH) 2.330, Free Thyroxine 1.13, Free Triiodothyronine 1.8L, Cortisol 20.7 12/08/16 03:20: Urine Random Sodium 50, Urine Random Chloride 38, Urine Potassium Timed 35 12/08/16 03:55: Sodium Level 145, Potassium Level 6.1*H, Chloride Level 102, Carbon Dioxide Level < 6*L, Anion Gap 37H, Blood Urea Nitrogen 54H, Creatinine 3.3#H, Estimat Glomerular Filtration Rate 22.7, Glucose Level 129H, Uric Acid 15.5H, Calcium Level 8.9, Phosphorus Level 12.0H, Magnesium Level 2.6H, Total Bilirubin 0.7, Aspartate Amino Transf (AST/SGOT) 513H, Alanine Aminotransferase (ALT/SGPT) 105H , Alkaline Phosphatase 128, Total Creatine Kinase 69, Total Protein 5.5L, Albumin 1.8L, Globulin 3.7, Albumin/Globulin Ratio 0.4L, White Blood Count 24.3# *H, Red Blood Count 1.92L, Hemoglobin 5.5#*L, Hematocrit 18.6L, Mean Corpuscular Volume 97#, Mean Corpuscular Hemoglobin 28.5, Mean Corpuscular Hemoglobin Concent 29.5L, Red Cell Distribution Width 23.3H, Platelet Count 99L , Mean Platelet Volume 7.3, Neutrophils (%) (Auto) , Lymphocytes (%) (Auto) , Monocytes (%) (Auto) , Eosinophils (%) (Auto) , Basophils (%) (Auto) , Neutrophils % (Manual) [Pending], Lymphocytes % (Manual) [Pending], Platelet Estimate [Pending], Platelet Morphology [Pending], Prothrombin Time 18.7H, Prothromb Time International Ratio 1.8H, Activated Partial Thromboplast Time 110H, Urine Osmolality [Pending], Gamma Glutamyl Transpeptidase 222H, Ammonia 726H, C-Reactive Protein, Quantitative 1.2H, Pro-B-Type Natriuretic Peptide 614H Height (Feet): 5 Height (Inches): 11.00 Weight (Pounds): 153 Objective GENERAL: Intubated LUNGS: Decreased breath sounds bilaterally. CARDIOVASCULAR: S1 and S2 devon. ABDOMEN: Distended with large ventral hernia noted. Tenderness to palpation. EXTREMITIES: No cyanosis. No clubbing. WILNER AMOR December 08, 2016 10:16
--- NOTE | 2016-12-08 10:43 | Diagnostic Imaging Report ---
Indication: Intubation Comparison: 12/07/16 A single view chest radiograph was obtained. Findings: PICC line is present. The tip is in the SVC. There is an endotracheal tube present 2 cm above the amy. Hiatal hernia is present. Heart is borderline enlarged. Lungs are clear. Bones are osteopenic. Impression: Tubes and lines satisfactory.
--- NOTE | 2016-12-08 10:52 | GI Progress Note ---
Assessment/Plan Problems: (1) Anemia ICD Codes: D64.9 - Anemia, unspecified SNOMED: 586810567 (2) Alcohol abuse ICD Codes: F10.10 - Alcohol abuse, uncomplicated SNOMED: 07403894 (3) Elevated CEA ICD Codes: R97.0 - Elevated carcinoembryonic antigen [CEA] SNOMED: 25673844, 795966238 (4) Liver masses ICD Codes: R16.0 - Hepatomegaly, not elsewhere classified SNOMED: 388021336 (5) GI (gastrointestinal bleed) ICD Codes: K92.2 - GI (gastrointestinal bleed) SNOMED: 03646483 (6) Iron deficiency anemia ICD Codes: D50.9 - Iron deficiency anemia, unspecified SNOMED: 26944670 (7) Ventral hernia ICD Codes: K43.9 - Ventral hernia without obstruction or gangrene SNOMED: 676852967 (8) Esophageal varices ICD Codes: I85.00 - Esophageal varices without bleeding SNOMED: 89798817 (9) Hepatitis C ICD Codes: B19.20 - Unspecified viral hepatitis C without hepatic coma SNOMED: 26577861 (10) Adenocarcinoma of liver ICD Codes: C22.9 - Malignant neoplasm of liver, not specified as primary or secondary SNOMED: 63764567, 137000696 (11) ETOH abuse ICD Codes: F10.10 - ETOH abuse SNOMED: 13426254 (12) Gastric varices ICD Codes: I86.4 - Gastric varices SNOMED: 18493845 Status: unchanged Status Narrative Discussed with Dr. Morrell. Assessment/Plan S/P EGD SUMMARY OF FINDINGS: 1. Limited exam given blood clot sitting in the proximal stomach and distal esophagus. 2. The patient had prior history of esophageal and gastric varices. 3. Paraesophageal hernia. RECOMMENDATIONS: octreotide gtt ppi BID monitor H&H, transfuse prn correct coagulopathy, vit k x 1 patient will require TIPS if rebleeds Subjective Subjective limited Objective Last 24 Hour Vital Signs Date Time Temp Pulse Resp B/P Pulse Ox O2 Delivery O2 Flow Rate FiO2 12/08/16 10:33 80/28 12/08/16 10:00 69 16 80/32 100 Mechanical Ventilator 100 12/08/16 09:45 68 16 79/28 100 Mechanical Ventilator 100 12/08/16 09:30 72 16 82/28 100 Mechanical Ventilator 100 12/08/16 09:15 71 16 96/33 100 Mechanical Ventilator 100 12/08/16 09:07 71 16 100 12/08/16 09:00 73 16 106/3 100 Mechanical Ventilator 100 12/08/16 08:45 71 16 106/30 100 Mechanical Ventilator 100 12/08/16 08:30 72 16 121/38 100 Mechanical Ventilator 100 12/08/16 08:15 72 16 110/74 100 Mechanical Ventilator 100 12/08/16 08:00 73 12/08/16 08:00 66 18 118/74 100 Room Air 12/08/16 07:45 71 15 119/40 100 Mechanical Ventilator 100 12/08/16 07:30 71 18 99/11 100 Mechanical Ventilator 100 12/08/16 07:19 67 16 100 12/08/16 07:15 68 18 74/49 100 Mechanical Ventilator 100 12/08/16 07:00 46/15 12/08/16 07:00 100 12/08/16 07:00 98.5 45 18 46/15 100 Mechanical Ventilator 100 12/08/16 06:00 66 18 118/74 100 Room Air 12/08/16 05:30 62 18 118/74 100 Room Air 12/08/16 05:27 73 16 Room Air 100 12/08/16 05:23 73 16 100 12/08/16 05:00 56 18 55/23 100 Room Air 12/08/16 04:30 72 18 78/40 100 Room Air 12/08/16 04:00 54 18 46/20 100 Room Air 12/08/16 04:00 60 12/08/16 03:00 56 18 89/45 100 Room Air 12/08/16 02:00 86 18 96/50 100 Room Air 12/08/16 01:00 110 18 96/50 100 Room Air 12/08/16 00:00 99 12/08/16 00:00 98.0 99 20 92/21 100 Room Air 12/07/16 23:00 110 18 96/50 100 Room Air 12/07/16 22:00 12/07/16 22:00 110 18 110/56 100 Room Air 12/07/16 21:00 110 18 116/69 100 Room Air 12/07/16 20:00 107 16 112/76 100 Room Air 12/07/16 20:00 112 12/07/16 19:00 112 16 96/56 100 Room Air 12/07/16 18:00 106 16 83/46 100 Room Air 12/07/16 17:00 107 22 95/62 100 Room Air 12/07/16 16:00 97.7 108 18 82/53 100 Room Air 12/07/16 16:00 116 12/07/16 15:00 100 21 99/66 100 Room Air 12/07/16 14:00 100 20 98/60 100 Room Air 12/07/16 13:00 112 23 96/62 100 Room Air 12/07/16 12:48 112 14 98 12/07/16 12:45 112 20 99 12/07/16 12:00 113 12/07/16 12:00 97.8 114 13 97/62 100 Room Air 12/07/16 11:00 115 15 82/38 100 Room Air Intake and Output 12/07/16 12/08/16 19:00 07:00 Intake Total 1251 ml 1600 ml Output Total 150 ml 225 ml Balance 1101 ml 1375 ml IV Total 1231 ml 1600 ml Other 20 ml Output Urine Total 0 ml 225 ml Emesis 150 ml Laboratory Tests Test 12/07/16 11:10 12/08/16 03:20 12/08/16 03:55 Sodium Level 138 mEQ/L (135-145) 145 mEQ/L (135-145) Potassium Level 4.6 mEQ/L (3.4-4.9) 6.1 mEQ/L (3.4-4.9) *H Chloride Level 98 mEQ/L (98-107) 102 mEQ/L (98-107) Carbon Dioxide Level 19 mEQ/L (20-30) L < 6 mEQ/L (20-30) *L Anion Gap 21 (5-15) H 37 (5-15) H Blood Urea Nitrogen 51 mg/dL (7-23) H 54 mg/dL (7-23) H Creatinine 2.1 mg/dL (0.7-1.2) H 3.3 mg/dL (0.7-1.2) #H Estimat Glomerular Filtration Rate 38.2 mL/min (>60) 22.7 mL/min (>60) Glucose Level 110 mg/dL (74-106) H 129 mg/dL (74-106) H Plasma/Serum Osmolality Pending Uric Acid 15.2 mg/dL (3.0-7.5) H 15.5 mg/dL (3.0-7.5) H Calcium Level 9.3 mg/dL (8.6-10.2) 8.9 mg/dL (8.6-10.2) Phosphorus Level 4.9 mg/dL (2.5-4.8) H 12.0 mg/dL (2.5-4.8) H Magnesium Level 1.8 mg/dL (1.7-2.5) 2.6 mg/dL (1.7-2.5) H Total Bilirubin 0.7 mg/dL (0.0-1.2) 0.7 mg/dL (0.0-1.2) Aspartate Amino Transf (AST/SGOT) 171 U/L (5-40) H 513 U/L (5-40) H Alanine Aminotransferase (ALT/SGPT) 14 U/L (3-41) 105 U/L (3-41) H Alkaline Phosphatase 179 U/L (40-129) H 128 U/L (40-129) Total Creatine Kinase 48 U/L (38-174) 69 U/L (38-174) Total Protein 7.7 g/dL (6.6-8.7) 5.5 g/dL (6.6-8.7) L Albumin 2.6 g/dL (3.5-5.2) L 1.8 g/dL (3.5-5.2) L Globulin 5.1 g/dL 3.7 g/dL Albumin/Globulin Ratio 0.5 (1.0-2.7) L 0.4 (1.0-2.7) L Thyroid Stimulating Hormone (TSH) 2.330 uIU/mL (0.300-4.500) Free Thyroxine 1.13 ng/dL (0.86-1.85) Free Triiodothyronine 1.8 pg/mL (2.0-4.4) L Cortisol 20.7 ug/dL (.) Urine Random Sodium 50 mmol/L Urine Random Chloride 38 mmol/L Urine Potassium Timed 35 mmol/L White Blood Count 24.3 K/UL (4.8-10.8) #*H Red Blood Count 1.92 M/UL (4.70-6.10) L Hemoglobin 5.5 G/DL (14.2-18.0) Hematocrit 18.6 % (42.0-52.0) L Mean Corpuscular Volume 97 FL (80-99) # Mean Corpuscular Hemoglobin 28.5 PG (27.0-31.0) Mean Corpuscular Hemoglobin Concent 29.5 G/DL (32.0-36.0) L Red Cell Distribution Width 23.3 % (11.6-14.8) H Platelet Count 99 K/UL (150-450) L Mean Platelet Volume 7.3 FL (6.5-10.1) Neutrophils (%) (Auto) % (45.0-75.0) Lymphocytes (%) (Auto) % (20.0-45.0) Monocytes (%) (Auto) % (1.0-10.0) Eosinophils (%) (Auto) % (0.0-3.0) Basophils (%) (Auto) % (0.0-2.0) Neutrophils % (Manual) Pending Lymphocytes % (Manual) Pending Platelet Estimate Pending Platelet Morphology Pending Prothrombin Time 18.7 SEC (9.30-11.50) H Prothromb Time International Ratio 1.8 (0.9-1.1) H Activated Partial Thromboplast Time 110 SEC (23-33) H Urine Osmolality Pending Gamma Glutamyl Transpeptidase 222 U/L (8-61) H Ammonia 726 umol/L (16-60) H C-Reactive Protein, Quantitative 1.2 mg/dL (< 0.5) H Pro-B-Type Natriuretic Peptide 614 pg/mL (0-125) H Height (Feet): 5 Height (Inches): 11.00 Weight (Pounds): 153 General Appearance: no apparent distress, alert Cardiovascular: normal rate Abdominal Exam: soft, ascites Joi Granados N.P. December 08, 2016 10:52
--- NOTE | 2016-12-08 11:06 | Pulmonolgy Critical Care Note ---
Critical Care - Asmt/Plan Problems: (1) Hypovolemic shock (2) Hematemesis (3) ATN (acute tubular necrosis) (4) UTI (lower urinary tract infection) (5) Adenocarcinoma of liver (6) Hepatitis C (7) Coagulopathy (8) Nonhealing nonsurgical wound (9) Intractable abdominal pain Assessment/Plan: I discussed the plan of care with the CESAR New. She understands the current condition. She has lupus herself and doesn't want anybody to suffer any pain. She wants him to be comfort care and no Shock or resuscitation or any sort. She understands that the is imminent. Respiratory: monitor respiratory rate, adjust FIO2 Critical Care - Objective Last 24 Hour Vital Signs Date Time Temp Pulse Resp B/P Pulse Ox O2 Delivery O2 Flow Rate FiO2 12/08/16 10:33 80/28 12/08/16 10:00 69 16 80/32 100 Mechanical Ventilator 100 12/08/16 09:45 68 16 79/28 100 Mechanical Ventilator 100 12/08/16 09:30 72 16 82/28 100 Mechanical Ventilator 100 12/08/16 09:15 71 16 96/33 100 Mechanical Ventilator 100 12/08/16 09:07 71 16 100 12/08/16 09:00 73 16 106/3 100 Mechanical Ventilator 100 12/08/16 08:45 71 16 106/30 100 Mechanical Ventilator 100 12/08/16 08:30 72 16 121/38 100 Mechanical Ventilator 100 12/08/16 08:15 72 16 110/74 100 Mechanical Ventilator 100 12/08/16 08:00 73 12/08/16 08:00 66 18 118/74 100 Room Air 12/08/16 07:45 71 15 119/40 100 Mechanical Ventilator 100 12/08/16 07:30 71 18 99/11 100 Mechanical Ventilator 100 12/08/16 07:19 67 16 100 12/08/16 07:15 68 18 74/49 100 Mechanical Ventilator 100 12/08/16 07:00 46/15 12/08/16 07:00 100 12/08/16 07:00 98.5 45 18 46/15 100 Mechanical Ventilator 100 12/08/16 06:00 66 18 118/74 100 Room Air 12/08/16 05:30 62 18 118/74 100 Room Air 12/08/16 05:27 73 16 Room Air 100 12/08/16 05:23 73 16 100 12/08/16 05:00 56 18 55/23 100 Room Air 12/08/16 04:30 72 18 78/40 100 Room Air 12/08/16 04:00 54 18 46/20 100 Room Air 12/08/16 04:00 60 12/08/16 03:00 56 18 89/45 100 Room Air 12/08/16 02:00 86 18 96/50 100 Room Air 12/08/16 01:00 110 18 96/50 100 Room Air 12/08/16 00:00 99 12/08/16 00:00 98.0 99 20 92/21 100 Room Air 12/07/16 23:00 110 18 96/50 100 Room Air 12/07/16 22:00 12/07/16 22:00 110 18 110/56 100 Room Air 12/07/16 21:00 110 18 116/69 100 Room Air 12/07/16 20:00 107 16 112/76 100 Room Air 12/07/16 20:00 112 12/07/16 19:00 112 16 96/56 100 Room Air 12/07/16 18:00 106 16 83/46 100 Room Air 12/07/16 17:00 107 22 95/62 100 Room Air 12/07/16 16:00 97.7 108 18 82/53 100 Room Air 12/07/16 16:00 116 12/07/16 15:00 100 21 99/66 100 Room Air 12/07/16 14:00 100 20 98/60 100 Room Air 12/07/16 13:00 112 23 96/62 100 Room Air 12/07/16 12:48 112 14 98 12/07/16 12:45 112 20 99 12/07/16 12:00 113 12/07/16 12:00 97.8 114 13 97/62 100 Room Air Status: obtunded Condition: critical HEENT: atraumatic Neck: full ROM Lungs: clear Heart: HR/BP stable, HR/BP unstable Abdomen: soft, non-tender, active bowel sounds, feeding tube Extremities: edema Critical Care - Subjective ROS Limited/Unobtainable: Yes Interval Events: pt became hypotensive with agonial breathing this morning, got intubated and started on levophed drip. Condition: critical FI02: 100 Vent Support Breath Rate: 16 Vent Support Mode: AC Vent Tidal Volume: 550 Sputum Amount: Small PIP: 14 Fluids: NS Drips: Levophed I&O: Intake and Output 12/07/16 12/08/16 19:00 07:00 Intake Total 1251 ml 1600 ml Output Total 150 ml 225 ml Balance 1101 ml 1375 ml IV Total 1231 ml 1600 ml Other 20 ml Output Urine Total 0 ml 225 ml Emesis 150 ml CXR: ET ion good position ET-Tube: 7.5 ET Position: 23 Labs: Laboratory Tests Test 12/07/16 11:10 12/08/16 03:20 12/08/16 03:55 Sodium Level 138 mEQ/L (135-145) 145 mEQ/L (135-145) Potassium Level 4.6 mEQ/L (3.4-4.9) 6.1 mEQ/L (3.4-4.9) *H Chloride Level 98 mEQ/L (98-107) 102 mEQ/L (98-107) Carbon Dioxide Level 19 mEQ/L (20-30) L < 6 mEQ/L (20-30) *L Anion Gap 21 (5-15) H 37 (5-15) H Blood Urea Nitrogen 51 mg/dL (7-23) H 54 mg/dL (7-23) H Creatinine 2.1 mg/dL (0.7-1.2) H 3.3 mg/dL (0.7-1.2) #H Estimat Glomerular Filtration Rate 38.2 mL/min (>60) 22.7 mL/min (>60) Glucose Level 110 mg/dL (74-106) H 129 mg/dL (74-106) H Plasma/Serum Osmolality Pending Uric Acid 15.2 mg/dL (3.0-7.5) H 15.5 mg/dL (3.0-7.5) H Calcium Level 9.3 mg/dL (8.6-10.2) 8.9 mg/dL (8.6-10.2) Phosphorus Level 4.9 mg/dL (2.5-4.8) H 12.0 mg/dL (2.5-4.8) H Magnesium Level 1.8 mg/dL (1.7-2.5) 2.6 mg/dL (1.7-2.5) H Total Bilirubin 0.7 mg/dL (0.0-1.2) 0.7 mg/dL (0.0-1.2) Aspartate Amino Transf (AST/SGOT) 171 U/L (5-40) H 513 U/L (5-40) H Alanine Aminotransferase (ALT/SGPT) 14 U/L (3-41) 105 U/L (3-41) H Alkaline Phosphatase 179 U/L (40-129) H 128 U/L (40-129) Total Creatine Kinase 48 U/L (38-174) 69 U/L (38-174) Total Protein 7.7 g/dL (6.6-8.7) 5.5 g/dL (6.6-8.7) L Albumin 2.6 g/dL (3.5-5.2) L 1.8 g/dL (3.5-5.2) L Globulin 5.1 g/dL 3.7 g/dL Albumin/Globulin Ratio 0.5 (1.0-2.7) L 0.4 (1.0-2.7) L Thyroid Stimulating Hormone (TSH) 2.330 uIU/mL (0.300-4.500) Free Thyroxine 1.13 ng/dL (0.86-1.85) Free Triiodothyronine 1.8 pg/mL (2.0-4.4) L Cortisol 20.7 ug/dL (.) Urine Random Sodium 50 mmol/L Urine Random Chloride 38 mmol/L Urine Potassium Timed 35 mmol/L White Blood Count 24.3 K/UL (4.8-10.8) #*H Red Blood Count 1.92 M/UL (4.70-6.10) L Hemoglobin 5.5 G/DL (14.2-18.0) Hematocrit 18.6 % (42.0-52.0) L Mean Corpuscular Volume 97 FL (80-99) # Mean Corpuscular Hemoglobin 28.5 PG (27.0-31.0) Mean Corpuscular Hemoglobin Concent 29.5 G/DL (32.0-36.0) L Red Cell Distribution Width 23.3 % (11.6-14.8) H Platelet Count 99 K/UL (150-450) L Mean Platelet Volume 7.3 FL (6.5-10.1) Neutrophils (%) (Auto) % (45.0-75.0) Lymphocytes (%) (Auto) % (20.0-45.0) Monocytes (%) (Auto) % (1.0-10.0) Eosinophils (%) (Auto) % (0.0-3.0) Basophils (%) (Auto) % (0.0-2.0) Neutrophils % (Manual) Pending Lymphocytes % (Manual) Pending Platelet Estimate Pending Platelet Morphology Pending Prothrombin Time 18.7 SEC (9.30-11.50) H Prothromb Time International Ratio 1.8 (0.9-1.1) H Activated Partial Thromboplast Time 110 SEC (23-33) H Urine Osmolality Pending Gamma Glutamyl Transpeptidase 222 U/L (8-61) H Ammonia 726 umol/L (16-60) H C-Reactive Protein, Quantitative 1.2 mg/dL (< 0.5) H Pro-B-Type Natriuretic Peptide 614 pg/mL (0-125) H TONIE BALDERAS December 08, 2016 11:06
[2016-12-08] MEDS ORDERED: Rate Change Narcotic Drip MISC PRN (11:15)
[2016-12-08] MEDS ORDERED: Morphine Sulfate 10mg/ml Inj IVP ONE (11:15)
[2016-12-08] MEDS ORDERED: Prochlorperazine 10mg tab ORAL PRN (11:15)
[2016-12-08] MEDS ORDERED: PCA Morphine 1mg/ml 30 ML IV PRN (11:15)
[2016-12-08] MEDS ORDERED: Artificial Tears 1.4% Op Soln BOTH EYES PRN (11:15)
[2016-12-08] MEDS ORDERED: Glycopyrrolate 0.2mg/ml 1ml Vial IV PRN (11:15)
[2016-12-08] MEDS ORDERED: Haloperidol 5mg/ml Inj IM PRN (11:15)
[2016-12-08 11:21] LABS: ANISOCYTOSIS 2+; BAND NEUTROPHILS % (MANUAL) 7 % (0-8); BASOPHILS % (MANUAL) 0 % (0-2); EOSINOPHILS % (MANUAL) 2 % (0-3); LYMPHOCYTES % (MANUAL) 24 % (20-45); NEUTROPHILS % (MANUAL) 61 % (45-75); NUCLEATED RED BLOOD CELLS 2 /100 WBC; PLATELET ESTIMATE DECREASED; PLATELET MORPHOLOGY NORMAL; TOTAL CELLS COUNTED 100
[2016-12-08 11:22] LABS: BURR CELLS OCCASIONAL; HYPOCHROMASIA 2+; POLYCHROMASIA 1+
[2016-12-08] MEDS ORDERED: D5 1/2NS 1000ml IV ONE (12:53)
[2016-12-08] MEDS ORDERED: Tubing IV Secondary IV ONE (12:53)
--- NOTE | 2016-12-08 13:26 | General Progress Note ---
Assessment/Plan Status: deteriorating Status Narrative now comfort care Pre Terminal Assessment/Plan status: On Vent upper GI bleeding anemia esophageal varices gastric varices paraesophageal hernia gx of duodenal ulcer with sutures in duodenal bulb poorly differentiated liver adenocarcinoma alcoholic liver disease hepatic encephalopathy UTI/Strep hepatitis C Plan: Pre Terminal Poor prognosis Agree with comfort care- Subjective ROS Limited/Unobtainable: Yes Allergies: Coded Allergies: PENICILLINS (Unverified Allergy, Severe, Rash, 05/01/14) Objective Last 24 Hour Vital Signs Date Time Temp Pulse Resp B/P Pulse Ox O2 Delivery O2 Flow Rate FiO2 12/08/16 13:00 0 16 40/21 100 Mechanical Ventilator 50 12/08/16 12:56 98.0 12/08/16 12:38 79 16 50 12/08/16 12:00 62 12/08/16 12:00 98.0 58 16 44/21 100 Mechanical Ventilator 50 12/08/16 11:01 69 16 50 12/08/16 11:00 69 16 81/31 100 Mechanical Ventilator 100 12/08/16 10:33 80/28 12/08/16 10:00 69 16 80/32 100 Mechanical Ventilator 100 12/08/16 09:45 68 16 79/28 100 Mechanical Ventilator 100 12/08/16 09:30 72 16 82/28 100 Mechanical Ventilator 100 12/08/16 09:15 71 16 96/33 100 Mechanical Ventilator 100 12/08/16 09:07 71 16 100 12/08/16 09:00 73 16 106/3 100 Mechanical Ventilator 100 12/08/16 08:45 71 16 106/30 100 Mechanical Ventilator 100 12/08/16 08:30 72 16 121/38 100 Mechanical Ventilator 100 12/08/16 08:15 72 16 110/74 100 Mechanical Ventilator 100 12/08/16 08:00 73 12/08/16 08:00 66 18 118/74 100 Room Air 12/08/16 07:45 71 15 119/40 100 Mechanical Ventilator 100 12/08/16 07:30 71 18 99/11 100 Mechanical Ventilator 100 12/08/16 07:19 67 16 100 12/08/16 07:15 68 18 74/49 100 Mechanical Ventilator 100 12/08/16 07:00 46/15 12/08/16 07:00 100 12/08/16 07:00 98.5 45 18 46/15 100 Mechanical Ventilator 100 12/08/16 06:00 66 18 118/74 100 Room Air 12/08/16 05:30 62 18 118/74 100 Room Air 12/08/16 05:27 73 16 Room Air 100 12/08/16 05:23 73 16 100 12/08/16 05:00 56 18 55/23 100 Room Air 12/08/16 04:30 72 18 78/40 100 Room Air 12/08/16 04:00 54 18 46/20 100 Room Air 12/08/16 04:00 60 12/08/16 03:00 56 18 89/45 100 Room Air 12/08/16 02:00 86 18 96/50 100 Room Air 12/08/16 01:00 110 18 96/50 100 Room Air 12/08/16 00:00 99 12/08/16 00:00 98.0 99 20 92/21 100 Room Air 12/07/16 23:00 110 18 96/50 100 Room Air 12/07/16 22:00 12/07/16 22:00 110 18 110/56 100 Room Air 12/07/16 21:00 110 18 116/69 100 Room Air 12/07/16 20:00 107 16 112/76 100 Room Air 12/07/16 20:00 112 12/07/16 19:00 112 16 96/56 100 Room Air 12/07/16 18:00 106 16 83/46 100 Room Air 12/07/16 17:00 107 22 95/62 100 Room Air 12/07/16 16:00 97.7 108 18 82/53 100 Room Air 12/07/16 16:00 116 12/07/16 15:00 100 21 99/66 100 Room Air 12/07/16 14:00 100 20 98/60 100 Room Air Intake and Output 12/07/16 12/08/16 19:00 07:00 Intake Total 1251 ml 1600 ml Output Total 150 ml 225 ml Balance 1101 ml 1375 ml IV Total 1231 ml 1600 ml Other 20 ml Output Urine Total 0 ml 225 ml Emesis 150 ml Laboratory Tests 12/08/16 03:20: Urine Random Sodium 50, Urine Random Chloride 38, Urine Potassium Timed 35 12/08/16 03:55: White Blood Count 24.3#*H, Red Blood Count 1.92L, Hemoglobin 5.5#*L, Hematocrit 18.6L, Mean Corpuscular Volume 97#, Mean Corpuscular Hemoglobin 28.5, Mean Corpuscular Hemoglobin Concent 29.5L, Red Cell Distribution Width 23.3H, Platelet Count 99L, Mean Platelet Volume 7.3, Neutrophils (%) (Auto) , Lymphocytes (%) (Auto) , Monocytes (%) (Auto) , Eosinophils (%) (Auto) , Basophils (%) (Auto) , Differential Total Cells Counted 100, Neutrophils % ( Manual) 61, Lymphocytes % (Manual) 24, Monocytes % (Manual) 6, Eosinophils % ( Manual) 2, Basophils % (Manual) 0, Band Neutrophils 7, Nucleated Red Blood Cells 2, Platelet Estimate DecreasedL, Platelet Morphology Normal, Polychromasia 1+, Hypochromasia 2+, Anisocytosis 2+, [place] Cells Occasional, Prothrombin Time 18.7H, Prothromb Time International Ratio 1.8H, Activated Partial Thromboplast Time 110H, Urine Osmolality [Pending], Sodium Level 145, Potassium Level 6.1*H, Chloride Level 102, Carbon Dioxide Level < 6*L, Anion Gap 37H, Blood Urea Nitrogen 54H, Creatinine 3.3#H, Estimat Glomerular Filtration Rate 22.7, Glucose Level 129H, Uric Acid 15.5H, Calcium Level 8.9, Phosphorus Level 12.0H, Magnesium Level 2.6H, Total Bilirubin 0.7, Gamma Glutamyl Transpeptidase 222H, Aspartate Amino Transf (AST/SGOT) 513H, Alanine Aminotransferase (ALT/SGPT) 105H, Alkaline Phosphatase 128, Ammonia 726H, Total Creatine Kinase 69, C-Reactive Protein, Quantitative 1.2H, Pro-B-Type Natriuretic Peptide 614H, Total Protein 5.5L, Albumin 1.8L, Globulin 3.7, Albumin/Globulin Ratio 0.4L Height (Feet): 5 Height (Inches): 11.00 Weight (Pounds): 153 General Appearance: no apparent distress, other - hypotensive EDWINA BUSTAMANTE December 08, 2016 13:26
[2016-12-08] MEDS ORDERED: Narcotic Shift Volume MISC SCH (15:00)
[2016-12-11 11:14] LABS: OTHERS PATHOLOGIST COMMENT
--- NOTE | 2016-12-11 11:28 | Discharge Summary ---
Discharge Summary Hospital Course Date of Admission December 06, 2016 at 12:00 Date of Discharge December 08, 2016 at 12:54 Admitting Diagnosis HPI Leno Mcleod is a 71 year old male who was admitted on December 06, 2016 at 12: 00 for Abdominal Pain,Urinary Tract Infection Hospital Course summary #[id number] Discharge Discharge Disposition Patient . pronounced at 12:54 12/08/16 Discharge Diagnoses: Discharge Instructions Discharge Instructions Special Instructions I have been assigned to complete a D/C Summary on this account. I was not involved in the patient management Yvonne Miner NP ([place]) December 11, 2016 11:27
--- NOTE | 2016-12-12 05:49 | Discharge Summary 2 SIG ---
DATE OF ADMISSION: 12/06/2016 DATE OF EXPIRATION: 12/08/2016. REASON FOR ADMISSION: 71-year-old male was transferred from [facility] with increased weakness and intractable abdominal pain. The patient with metastatic liver adenocarcinoma. The patient initially was evaluated in [facility] and then transferred to [place] for further workup. Initial evaluation revealed anemia and acute renal failure. No fever. The patient was initially Full code. The patient was admitted to the telemetry floor. ADMITTING DIAGNOSES: 1. Intractable abdominal pain. 2. Acute renal failure. 3. Upper gastrointestinal bleeding. 4. Metastatic liver adenocarcinoma. 5. History of alcohol abuse. 6. Hepatitis C. Hospital Stay: The patient was admitted. GI consult was requested. The patient was started on the IV fluids. The patient was started on octreotide drip. GI seen and evaluated the patient. EGD was done but was limited due to the blood clots in the proximal stomach and distal esophagus. The patient had a prior history of esophageal and gastric varices. GI recommended, that if the patient rebleed, transfer for TIPS procedure. The patient was as mentioned on octreotide drip and Protonix. Hemoglobin and hematocrit were clsoely monitored. On 12/08/2016, hemoglobin was down to 5.5. The patient required two units of packed red blood cell transfusion. Abdominal ultrasound revealed liver findings compatible with chronic hepatocellular disease/cirrhosis. Stable 3.3 cm mass on left hepatic lobe previously biopsied, compatible with metastatic adenocarcinoma. Hepatocellular carcinoma was also considered. Gallbladder wall thickening likely secondary to adjacent liver disease. Small intraluminal polyp. No stones. Right renal atrophy suggesting longstanding renal artery stenosis versus chronic insult. Ammonia level was 726. Patient was given lactulose three times a day. The patient also noted to have coagulopathy, INR-1.3 on 12/07/16. Vitamin K was given. The next day 12/08 INR-1.8 despite vitamin K. Surgeon seen and evaluated the patient. Per surgeon, no acute surgical intervention at this time was planned. He concurred with GI specialist and recommended if the patient decompensate, to consider tertiary center for TIPS or bypass. According to surgeon, the patient's condition was guarded. An emergent surgery for acute bleeding will have very high morbidity/ mortality rate. Ventral hernia was asymptomatic and reducible. There was a slow healing wound in superficial skin, was recommended to keep the wound clean with dressing, no signs of infection. Supervisor Fertilizer followed for acute renal failure. Renal parameters were closely monitored, but unfortunately were worsening. Nephrotoxics were avoided. Per shield operator, the patient had a poor prognosis. Pain management was provided. Pain specialist followed. 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 The patient was transferred to ICU. Ventilator support and pulmonary toilet provided. Blood pressure was low. The patient was started on Levophed drip. Hemodynamic support was provided. At that time, laboratory results revealed severe leukocytosis -24.3. Hemoglobin and hematocrit -5.5 and 18.6. The patient was transfused with two units of packed red blood cells. Chest x-ray that day revealed satisfactory position of tubes and lines, lungs were clear. Blood culture were negative. Urine culture was negative. The patient was on empiric antibiotics. Salesperson [employer] discussed further care and a poor terminal prognosis with durable power of state's attorney and subsequently code status was changed to DNR/DNI and care was switched to comfort care. Patient was started on Morphine drip. All medications, including pressors were stopped. The patient was pronounced on 12/08/2016 at 12:54. Cause of : cardiopulmonary arrest. FINAL DIAGNOSES: 1. Hypovolemic shock. 2. Upper gastrointestinal bleeding, secondary to gastric varices. 3. Acute respiratory failure requiring intubation. 4. Status post esophagogastroduodenoscopy with finding of gastric varices. 5. Acute tubular necrosis, likely secondary to hypotension and shock. 6. History of esophageal and gastric varices. 7. Metastatic liver adenocarcinoma. 8. Liver cirrhosis. 9. Hepatitis C. 10. Acute anemia, status post two units packed red blood cells. 11. Ethanol abuse. 12. Coagulopathy . 13. Severe hepatic encephalopathy. Lennox Leigh M.D. I have been assigned to dictate discharge summary on this account and I was not involved in the patient's management. Yvonne Miner ([facility] María N.PSilas DR: KATRIN JOB#: [id number] CC: LINDSAY
== END 2016-12-08 12:54 | disposition expired | DRG 435 ==
LOC: 4W 12:00 → ICU 12-07 00:48
PROC: 0DJ08ZZ Inspection of Upper Intestinal Tract, Via Natural or Artificial Opening Endoscopic (ICD-10-PCS; principal; 2016-12-07 12:29)
PROC: 02HV33Z Insertion of Infusion Device into Superior Vena Cava, Percutaneous Approach (ICD-10-PCS; principal; 2016-12-07 12:29)
PROC: 5A1935Z Respiratory Ventilation, Less than 24 Consecutive Hours (ICD-10-PCS; 2016-12-08)
PROC: 30233N1 Transfusion of Nonautologous Red Blood Cells into Peripheral Vein, Percutaneous Approach (ICD-10-PCS; 2016-12-08)
DX: C78.7 Secondary malignant neoplasm of liver and intrahepatic bile duct (principal); N17.0 Acute kidney failure with tubular necrosis; R57.1 Hypovolemic shock; D68.9 Coagulation defect, unspecified; I95.9 Hypotension, unspecified; K70.30 Alcoholic cirrhosis of liver without ascites; K92.2 Gastrointestinal hemorrhage, unspecified; K72.90 Hepatic failure, unspecified without coma; I85.00 Esophageal varices without bleeding; N39.0 Urinary tract infection, site not specified; Z51.5 Encounter for palliative care; B95.5 Unspecified streptococcus as the cause of diseases classified elsewhere; R00.1 Bradycardia, unspecified; I86.4 Gastric varices; B19.20 Unspecified viral hepatitis C without hepatic coma; K43.9 Ventral hernia without obstruction or gangrene; Z88.0 Allergy status to penicillin; M10.9 Gout, unspecified; K44.9 Diaphragmatic hernia without obstruction or gangrene; D64.9 Anemia, unspecified; R97.0 Elevated carcinoembryonic antigen [CEA]; F17.200 Nicotine dependence, unspecified, uncomplicated; F10.21 Alcohol dependence, in remission; Z66 Do not resuscitate
CPT/HCPCS: 36415; 36569; 71010; 76700; 76937; 80053; 82140; 82150; 82436; 82533; 82550; 82977; 83690; 83735; 83880; 83930; 83935; 84100; 84133; 84300; 84439; 84443; 84481; 84550; 85007; 85025; 85610; 85730; 86140; 86850; 86900; 86901; 86920; 87040; 87086; 94002; 94003; 94150; 94664; J2405